=== PATIENT | male | born 1960 | race Caucasian/White ===

== ENCOUNTER 2018-04-19 09:38 | Emergency (ER) | payer BC, SELFPAY ==
[2018-04-19 09:41] VITALS: BP 144/90; PULSE 89; RESP 18; TEMP 36.4; O2SAT 99; BMI 26.8
--- NOTE | 2018-04-19 09:54 | ED.VISSUMM ---
- ER Visit Summary Date of Service: 04/19/18 Chief Complaint: Leg laceration History of Present Illness: The patient is a 57 M presents to the emergency department with laceration to his left leg. Patient was using a chainsaw today. He states that it hit the wooden and kicked back. He cut just above his left knee. He is unsure of his last tetanus. He takes no daily medications. He is otherwise healthy. He is been able to ambulate. Physical Examination: Patient has a 6 cm laceration that is horizontally oriented above the patella. It does not involve the joint capsule. His extension is preserved. There is no gross debris. There is no gross laxity of the knee. His pulses are normal. Test Results: [] Emergency Department Course and Treatment: The area was anesthetized. It was irrigated and explored. Again, the laceration does not communicate into the joint at all. The wound was closed with simple interrupted suture. Bacitracin dressing and Braeden bandage were applied. Patient be discharged home with instructions on wound care and reasons to return. Treatment Plan: [] Disposition: Discharge Impression: 6 cm left knee laceration with repair This note was generated with [employer] dictation software. It may contain incorrect words, spelling, and punctuation that were not noted in review of the chart prior to signing ED Disposition - Plan for ED Patient: Instructions: ED Laceration All Referrals: Kelsie Munoz MD [Primary Care Provider] - 10 Day for suture removal
[2018-04-19] MEDS: Diphth,Pertuss(Acell),Tet Vac 0.5 ML Vial IM (09:59)
== END 2018-04-19 10:32 | disposition home or self-care (01) ==
LOC: ED 10:23
PROVIDERS: Emergency Provider Emergency Medicine; Family Provider Family Medicine; PCP Family Medicine
DX: S81.012A Laceration without foreign body, left knee, initial encounter (principal); W29.3XXA Contact with powered garden and outdoor hand tools and machinery, initial encounter; Y93.89 Activity, other specified; Y92.89 Other specified places as the place of occurrence of the external cause; Y99.8 Other external cause status
CPT/HCPCS: 12002; 90471; 90715; 99283

== ENCOUNTER 2018-08-29 19:35 | Inpatient (IN) | payer BC, SELFPAY ==
[2018-08-29 19:36] VITALS: BP 125/104; PULSE 93; RESP 16; TEMP 36.3; O2SAT 97; BMI 26.8
--- NOTE | 2018-08-29 19:43 | EKG12_ITS ---
Test Reason : CP Blood Pressure : / mmHG Vent. Rate : 090 BPM Atrial Rate : 090 BPM P-R Int : 178 ms QRS Dur : 090 ms QT Int : 360 ms P-R-T Axes : 060 050 034 degrees QTc Int : 440 ms Normal sinus rhythm Normal ECG Confirmed by DOMONIQUE LAU, GRIFFIN ([id number]), film and video editor KENNEY CINTRON ([id number]) on 09/01/2018 1:13:46 PM Referred By: Rogelio Licona Confirmed By:GRIFFIN YOUSSEF MD
--- NOTE | 2018-08-29 20:00 | RAD_ITS ---
STUDY: X-RAY CHEST REASON FOR EXAM: Male, 58 years old. Chest pressure TECHNIQUE: Frontal view of the chest COMPARISON: None. FINDINGS: The lungs are clear. There are no pleural effusions. There is no pneumothorax. The heart is normal in size. The visualized osseous structures are within normal limits. RAD/Chest 1 View (Portable) IMPRESSION: No acute thoracic pathology. Electronically Signed: Eb Villegas, at 20:11 EDT Tel , Service support ,
[2018-08-29 20:10] LABS: Absolute Lymphocyte Count 1.33 X10^3/ul (0.83-4.51); Absolute Neutrophil Count 4.6 X10^3/uL (2.0-7.7); Basophil# 0.04 X10^3/uL; Basophil% 0.6 % (0-1); Eosinophils% 2.9 % (0-5); Hematocrit 40.9 % (40-54); Lymphocyte # 1.33 X10^3/ul (4.0); Lymphocyte % 19.6 % (19-41); Mean Corp Hgb Conc 34.2 g/gl (32-36); Mean Corpuscular Hgb 31.6 pg (27.0-32.0); Mean Corpuscular Volume 92.3 fL (80-94); Mean Platelet Vol. 10.3 fl (6.2-12.0); Monocyte# 0.59 X10^3/uL; Monocyte% 8.7 % (0-10); Neutrophil # 4.61 X10^3/uL (2.7-7.7); Neutrophil % 67.9 % (47-70); Platelet Count 221 K/mm3 (150-450); RBC Distribution Width CV 14.2 % (11.6-14.6); Red Blood Count 4.43 M/mm3 (4.6-6.2); White Blood Count 6.8 K/mm3 (4.4-11.0)
[2018-08-29 20:13] LABS: POSITIVE COUNT NO; POSITIVE DIFFERENTIAL NO; POSITIVE MORPHOLOGY NO
[2018-08-29 20:22] LABS: Anion Gap 6 (5-15); BUN 19 mg/dL (7-18); BUN/Creat Ratio 14.4 RATIO (10-20); Chloride 107 mmol/L (98-107); Creatinine, Serum 1.32 mg/dL (0.70-1.30); EST Glomerular Filtration Rate 59 mL/min (>60); Est Glom Filt Rate - Afr Amer 71 mL/min (>60); Estimated Creatinine Clearance 61.45 ml/min; Glucose 95 mg/dL (74-106); Potassium 3.6 mmol/L (3.5-5.1); Sodium Level 138 mmol/L (136-145)
--- NOTE | 2018-08-29 20:49 | ED.VISSUMM ---
- ER Visit Summary Date of Service: 08/29/18 Chief Complaint: Chest pain History of Present Illness: The patient is a 58 M who is very healthy and tonight was playing a game of pickle ball. After about an hour of play during set he began to feel chest tightness over on the left side of his chest. It did not radiate. There is no nausea. There is no shortness of breath out of the ordinary for him. There is no primary relative with early heart disease under the age of 55. He is a non-smoker. No history of diabetes hypertension or high cholesterol. He currently takes no medications. Physical Examination: Afebrile vital signs stable Gen: Well-nourished well-developed Head: Normocephalic atraumatic Eyes: Perrl EOMI ENT: TMs clear no rhinorrhea moist mucous membranes Neck: Supple no lymphadenopathy no JVD nontender CVS: Regular rate rhythm no murmurs normal S1-S2 Respiratory: No distress clear to auscultation bilaterally chest nontender Abdomen: Soft nontender nondistended normal bowel sounds no masses Back: Nontender Extremity: Nontender no edema Skin: Normal color no rash Neuro: alert orientated ?3 CN II-XII intact normal strength sensation Psych: Normal affect normal mood Test Results: Initial EKG shows a normal sinus rhythm at a rate of 90. This was compared to February 2013 I do not see a significant change. Initial troponin was negative. The delta troponin did turn positive at 0.2. Repeat EKG was unchanged Emergency Department Course and Treatment: Patient received aspirin and lovenox. He was observed in the department is not having any symptoms at rest. Spoke with Dr. Allen on-call for cardiology as well as her hospitalist. Patient will be admitted Impression: 1. Chest pain 2. Indeterminate troponin This note was generated with [employer] dictation software. It may contain incorrect words, spelling, and punctuation that were not noted in review of the chart prior to signing ED Disposition - Plan for ED Patient: Referrals: Kelsie Munoz MD [Primary Care Provider] -
[2018-08-29 21:34] VITALS: BP 142/89; PULSE 73; RESP 15; O2SAT 95
[2018-08-29 23:00] VITALS: BP 143/103; PULSE 73; RESP 18; O2SAT 95
--- NOTE | 2018-08-29 23:38 | EKG12_ITS ---
Test Reason : INCREASED TROPONIN Blood Pressure : / mmHG Vent. Rate : 077 BPM Atrial Rate : 077 BPM P-R Int : 184 ms QRS Dur : 090 ms QT Int : 380 ms P-R-T Axes : 067 054 030 degrees QTc Int : 430 ms Normal sinus rhythm with sinus arrhythmia Normal ECG Confirmed by DOMONIQUE LAU, GRIFFIN ([id number]), offline editor KENNEY CINTRON ([id number]) on 09/01/2018 1:14:39 PM Referred By: Rogelio Licona Confirmed By:GRIFFIN YOUSSEF MD
[2018-08-29] MEDS: Aspirin 81 MG TAB.CHEW 324 MG PO (23:41)
--- NOTE | 2018-08-29 23:48 | HP.PCM_ITS ---
Problem List (1) NSTEMI (non-ST elevated myocardial infarction) Status: Acute History of Present Illness Date of Admission: 08/30/18 Chief Complaint: CHEST PAIN The patient is a 58 year old M with no significant previous medical history who presented to emergency department with chest pain that started while playing pickle ball. He took some rest and went back to play pickle ball and his chest pain persisted with playing. After he stopped playing about a time he go to emergency department a chest pain had abated. He chest pain was linked to playing pickle ball and there is no other aggravating or ameliorating factors. He describes chest pain as pressure and of severe intensity. The pain was located on the left side of his chest and it was nonradiating. He denied any nausea or vomiting. He was diaphoretic that hitting it was appropriate and attributed to he playing. Admission was continued because patient was noted to have elevated troponin. Past Medical History Medical History: Medical History (Last Reviewed 08/30/18 @ 05:40 by Rogelio Licona MD) Denies previous medical history Allergies No Known Allergies Allergy (Verified 08/29/18 19:41) Home Medications: Ambulatory Orders Medication Instructions Recorded NK 08/29/18 Surgical History: herniorrhaphy - X2 Lives: With Family Smoking Status: Never smoker Tobacco Use: Cigarettes Alcohol: Occasional - *Family History Maternal History Items: - - Carotid artery disease in the mother requiring a stent while she was at age 81-82. Maternal grandfather had a heart attack. Paternal History Items: Heart Disease - His paternal grandfather had a heart attack when he was 65 to 70s. Review of Systems Constitutional: Denies: Chills, Fever, Weight Change HEENT: Denies: Head Aches, Sinus Congestion, Sinus Drainage Cardiovascular: Reports: Chest Pressure. Denies: Palpitations Respiratory: Denies: Cough, Shortness of breath at rest, Sputum production Gastrointestinal: Denies: Abdominal Pain, Nausea, Vomiting Genitourinary: Denies: Dysuria Musculoskeletal: Denies: Joint Pain, Joint Tenderness Skin: Denies: Rash, Wounds Neurological: Denies: Numbness, Tingling, Focal weakness Psychiatric: Denies: Anxiety, Depression, Homicidal Ideations, Suicidal Ideations Hematologic/ Lymphatic: Denies: Easy Bruising, Easy Bleeding VTE Information - Inpt Only VTE Present on Admission: No VTE Mechan Device Prophylaxis: None VTE Pharm Prophylaxis ordered?: Yes Patient Problems: Active and Suspected Problems (Last Updated 08/30/18 @ 01:58 by Rogelio Licona MD) NSTEMI (non-ST elevated myocardial infarction) (Acute) - Physical Exam General: Alert, Oriented x3, Cooperative HEENT: Atraumatic, PERRLA, EOMI, Normocephalic Neck: Supple, No JVD, Negative Carotid Bruits Lungs: Clear to auscultation, Normal air movement Cardiovascular: Regular rate, No murmurs Abdomen: Bowel Sounds Present, Soft, Non Tender Extremities: No edema, Capillary Refill Less than 3 Seconds Skin: No rashes, No breakdown Musculoskeletal: No Tenderness to Palpation of Joints or Extremities Neurological: Cranial nerves II-XII grossly intact Psych/Mental Status: Normal Affect, Appropriate Vital Signs Temp Pulse Resp BP Pulse Ox 97.4 F L 73 18 143/103 H 95 08/29/18 19:36 08/29/18 23:00 08/29/18 23:00 08/29/18 23:00 08/29/18 23:00 Oxygen Delivery Method Room Air Weight: 84.7 kg Body Mass Index (BMI) 26.8 Laboratory Tests Past 24 Hrs 08/29/18 08/29/18 08/29/18 19:55 19:55 22:52 WBC 6.8 RBC 4.43 L Hgb 14.0 Hct 40.9 MCV 92.3 MCH 31.6 MCHC 34.2 RDW 14.2 RDW Differential 48.0 H Plt Count 221 MPV 10.3 Immature Gran % (Auto) 0.300 Neut % (Auto) 67.9 Lymph % (Auto) 19.6 [place] % (Auto) 8.7 Eos % (Auto) 2.9 Baso % (Auto) 0.6 Absolute Neuts (auto) 4.6 Absolute Lymphs (auto) 1.33 Total Counted Not Reportable Sodium 138 Potassium 3.6 Chloride 107 Carbon Dioxide 25.0 Anion Gap 6 BUN 19 H Creatinine 1.32 H Estim Creat Clear Calc 61.45 Est GFR (MDRD) Af Amer 71 Est GFR (MDRD) Non-Af 59 L BUN/Creatinine Ratio 14.4 Glucose 95 Calcium 9.0 Troponin I < 0.015 0.202 H Assessment/Plan All Active Problems (Last Updated 08/30/18 @ 01:58 by Rogelio Licona MD) NSTEMI (non-ST elevated myocardial infarction) (Acute) The patient is a 58 year old M with no significant previous medical history who presented to emergency department with chest pain that started while playing pickle ball. Probable non-STEMI Patient with typical chest pain and with elevated troponin which is rising. Patient was given Lovenox at the emergency department. Per emergency department doctor the case was discussed with cardiology and cardiology will follow. We will continue patient on Lovenox. Patient received aspirin 324 mg in the emergency department. Continue patient on baby aspirin daily and high intensity statin. Will check lipid panel. Sublingual nitroglycerin as needed and morphine IV as needed for pain. Chest x-ray showed no acute thoracic pathology. Chest x-ray was independently reviewed. I agree with radiologist interpretation. EKG was independently reviewed. It showed sinus rhythm. Cardiology consult DVT prophylaxis Not indicated since patient has been started on therapeutic dose of Lovenox because of probable non-STEMI. Code Visit Inpatient E&M: 11441 Init Hosp L3
[2018-08-30] VITALS (15 sets, daily range): BP systolic 123–148; BP diastolic 84–93; PULSE 56–79; RESP 14–16; TEMP 36.4–36.9; O2SAT 94–98; BMI 25.7
[2018-08-30] MEDS: Enoxaparin 80 MG/0.8 ML Syringe SC ×3 (00:18→22:09)
[2018-08-30] MEDS: Atorvastatin Calcium 80 MG Tablet PO ×2 (00:51→22:09)
[2018-08-30 06:37] LABS: International Normalized Ratio 1.1; Prothrombin Time (Protime)PT. 14.4 SECONDS (11.7-14.9)
[2018-08-30 07:05] LABS: Cholesterol 212 mg/dL (200); High Density Lipoprotein 55 mg/dL; Triglycerides 94 mg/dL; Very Low Density Lipoprotein 19 mg/dL (5-40)
--- NOTE | 2018-08-30 08:35 | ECHOD_ITS ---
Reason For Study: CHEST PAIN Procedure This was a 2D Doppler, Color Flow transthoracic echocardiogram. The exam was of adequate technical quality. Exam performed portable in patient room. Left Ventricle Normal LV size. Segmental dysfunction with preserved ejection fraction (see wall motion). The estimated ejection fraction is 60 %. No evidence for diastolic dysfunction. Mid-Anterior : Mildly hypokinetic. Mid-Lateral : Mildly hypokinetic. Anterior [place] : Mildly hypokinetic. Lateral [place] : Mildly hypokinetic. Right Ventricle Normal RV size. Normal systolic function. Atria Normal left atrium. Normal right atrium. No doppler evidence for ASD. Mitral Valve There is no mitral annular calcification. Normal mitral valve. Trivial mitral valve insufficiency. Tricuspid Valve Normal tricuspid valve. Trivial tricuspid valve insufficiency. Right ventricular systolic pressure estimated to be 25 mmHg. Aortic Valve Trisinus/trileaflet aortic valve. Normal aortic valve. Pulmonic Valve The pulmonic valve is not well visualized. Great Vessels Normal sized aortic root. Pericardium/Pleural No pericardial effusion. MMode/2D Measurements & Calculations LVIDd: 4.9 cm IVSd: 1.0 cm Ao root diam: 3.4 cm LVIDs: 3.5 cm LVPWd: 1.0 cm LA dimension: 3.3 cm RVDd: 3.5 cm FS: 28.7 % LAV(MOD-bp): 39.9 ml LA A4 area: 13.4 cm2 RA A4 area: 13.0 cm2 LAV(MOD-bp) Indexed: 20.0 ml/m2 LAV(MOD-sp2): 48.2 ml LAV(MOD-sp4): 29.5 ml Time Measurements MV dec time: 0.23 sec Doppler Measurements & Calculations MV E max gar[place]: 58.0 cm/sec Lat Peak E' [place]: 9.1 cm/sec Med Peak E' [place]: 9.7 cm/sec MV A max [place]: 66.1 cm/sec E/E' lat: 6.3 E/E' med: 6.0 MV E/A: 0.88 Ao V2 max: 97.2 cm/sec LV V1 max: 84.3 cm/sec PA V2 max: 86.4 cm/sec Ao max P.8 mmHg LV V1 max P.8 mmHg TR max gar[place]: 232.1 cm/sec TR max P.6 mmHg Interpretation Summary Segmental dysfunction with preserved ejection fraction (see wall motion). The estimated ejection fraction is 60 %. Trivial mitral valve insufficiency. Trivial tricuspid valve insufficiency. Right ventricular systolic pressure estimated to be 25 mmHg. No evidence for diastolic dysfunction. Ordering Physician: Vishnu Amos Referring Physician: Rogelio Licona Performed By: Anjali Stephenson RDCS, RVT
[2018-08-30] MEDS: Aspirin E.C. 81 MG Tablet PO (09:09)
--- NOTE | 2018-08-30 11:44 | PCM.CONS.C ---
Problem List (1) NSTEMI (non-ST elevated myocardial infarction) Status: Acute (2) HLD (hyperlipidemia) Status: Acute Reason for Consult Date of Consultation: 08/30/18 History of Present Illness: The patient is a 58 year old white male with no past medical history who is referred for evaluation of chest discomfort and findings concerning for non-ST segment elevation NE. He states that he has been active. He participates in many different athletic type activities. He states yesterday he was playing pickleball at the [facility]. He developed left-sided chest discomfort/heaviness/pressure. He rested and felt better. He returned to his activity. However he subsequently had to stop based upon his feelings. He did not complain of any acute shortness of breath/dyspnea. There was no nausea or emesis. He stated it was hot and humid and he was somewhat diaphoretic but not believe he was diaphoretic out of proportion to his activity. There was no loss of consciousness. He presented to the [facility] emergency department for further evaluation. His initial troponin I level was negative. His ECG demonstrated sinus rhythm with no acute ECG changes. He remained in the emergency department for repeat troponin I level which then became indeterminate. His repeat ECG again demonstrated sinus rhythm with no acute changes. He was recommended for further inpatient evaluation and care. He states thus far he has had no recurrent symptoms. His troponin I level has trended up to 0.581. He was also noted to have a lipid profile performed with a cholesterol of 212 and an LDL of 138 and an HDL of 55. His triglycerides were normal at 94. He has denied orthopnea, PND, or peripheral pitting edema. There is been no history of near syncope or syncope. He believes he had an exercise tolerance test performed approximately 13 years ago which was reported as unremarkable. [] Past Medical History Allergies/Adverse Reactions: Allergies No Known Allergies Allergy (Verified 08/29/18 19:41) Home Medications: Ambulatory Orders Medication Instructions Recorded NK 08/29/18 Surgical History: herniorrhaphy - X2 - *Family History Maternal History Items: - - Carotid artery disease in the mother requiring a stent while she was at age 81-82. Maternal grandfather had a heart attack. Paternal History Items: Heart Disease - His paternal grandfather had a heart attack when he was 65 to 70s. Lives: With Family Smoking Status: Never smoker Tobacco Use: Cigarettes Alcohol: Occasional Drugs: None Review of Systems - Review of Systems General: Denies: Fever, Night Sweats, Fatigue Cardiovascular: Reports: Chest Discomfort, Chest Discomfort with Exertion. Denies: Shortness of Breath, Orthopnea, PND, Peripheral Edema, Palpitations, Lightheadedness, Dizziness, Near Syncope, Syncope Respiratory: Denies: Cough, Sputum Production, Hemoptysis Gastrointestinal: Denies: Hematemesis, Hematochezia, Melena Genitourinary: Denies: Dysuria, Hematuria Skin: Denies: Rash Subjectve: This is a healthy-appearing 58-year-old white male who appears to be resting comfortably no acute distress. Objective: Vital Signs Temp Pulse Resp BP Pulse Ox 98.4 F 61 16 131/89 H 96 08/30/18 05:52 08/30/18 07:06 08/30/18 05:52 08/30/18 05:52 08/30/18 07:29 Oxygen Delivery Method Room Air Weight: 179 lb Body Mass Index (BMI) 25.7 General: Healthy Appearing, Awake, Alert, Oriented x 3, Cooperative, No Acute Distress HEENT: Atraumatic, Normocephalic, PERRL, EOMI, Sclera Non Icteric Oral: Moist Mucosa Neck: Supple, Good ROM, No JVD Lungs: Clear to auscultation Cardiovascular: Regular Rhythm, Normal S1, Normal S2 Vascular: No Carotid Bruits Abdomen: Bowel Sounds Present, Soft, Non Tender Extremities: No Cyanosis, No Clubbing, No edema Neurological: No Focal Motor or Sensory Deficit Psych/Mental Status: Appropriate 08/29/18 19:55: WBC 6.8, RBC 4.43 L, Hgb 14.0, Hct 40.9, MCV 92.3, MCH 31.6, MCHC 34.2, RDW 14.2, RDW Differential 48.0 H, Plt Count 221, MPV 10.3, Immature Gran % (Auto) 0.300, Neut % (Auto) 67.9, Lymph % (Auto) 19.6, [place] % (Auto) 8.7, Eos % (Auto) 2.9, Baso % (Auto) 0.6, Absolute Neuts (auto) 4.6, Total Counted Not Reportable 08/29/18 19:55: Sodium 138, Potassium 3.6, Chloride 107, Carbon Dioxide 25.0, Anion Gap 6, BUN 19 H, Creatinine 1.32 H, Est GFR (MDRD) Af Amer 71, Est GFR (MDRD) Non-Af 59 L, BUN/Creatinine Ratio 14.4, Glucose 95, Calcium 9.0, Troponin I < 0.015 08/29/18 22:52: Troponin I 0.202 H 08/30/18 02:13: Troponin I 0.581 H 08/30/18 05:40: PT 14.4, INR 1.1 08/30/18 05:40: Triglycerides 94, Cholesterol 212 H, LDL Cholesterol 138 H, VLDL Cholesterol 19, HDL Cholesterol 55 Rhythm: Sinus rhythm EKG: As noted above ECHO: Pending CXR: Preliminary evaluation: No acute cardiopulmonary disease process appreciated Assessment/Plan 1. Non-ST segment elevation NE The patient presented with exertional chest discomfort. He has had subsequent cardiac enzymes performed which have trended up to the near positive range. His ECG is demonstrated no acute changes. At the present time he has had no other obvious explanation for his symptoms and/or objective changes. Thus there is concern of a non-ST segment elevation NE. He will continue to be monitored. He will continue medical management as deemed appropriate. An echocardiogram is pending to evaluate his left ventricular wall motion and systolic function. However, he will need to be considered for further evaluation with diagnostic cardiac catheterization. The procedure and risks have been discussed with him and he is agreeable to this approach. 2. Hyperlipidemia The patient is noted to have findings compatible with hyperlipidemia. This would be a contributing risk factor with respect to cardiovascular events. He will continue evaluation care as deemed appropriate. Comment: Patient's case has been discussed and reviewed with the patient, his spouse, and the [facility] staff. This note was generated using a voice recognition system and there may be incorrect words, spelling or punctuation that were not noted when reviewing the office note prior to saving.
--- NOTE | 2018-08-30 13:36 | PCM.PROGNOTE ---
<Funmi Lombardo - Last Filed: 08/30/18 13:43> Patient Problems: Active and Suspected Problems (Last Reviewed 08/30/18 @ 05:40 by Rogelio Licona MD) NSTEMI (non-ST elevated myocardial infarction) (Acute) HLD (hyperlipidemia) (Acute) Subjective: Patient seen and examined. Ambulating in room. Denies further chest pain. Denies shortness of breath, dizziness or other symptoms. - Physical Exam General: Alert, Oriented x3, Cooperative HEENT: Atraumatic, PERRLA, EOMI, Normocephalic Neck: Supple, No JVD, Negative Carotid Bruits Lungs: Clear to auscultation, Normal air movement Cardiovascular: Regular rate, Regular Rhythm, Normal S1, Normal S2, No murmurs Abdomen: Bowel Sounds Present, Soft, Non Tender, Non-Distended Extremities: No clubbing, No cyanosis, No edema, Capillary Refill Less than 3 Seconds Skin: No rashes, No breakdown Musculoskeletal: No Tenderness to Palpation of Joints or Extremities Neurological: Cranial nerves II-XII grossly intact, Neuro grossly intact Psych/Mental Status: Normal Affect, Appropriate Vital Signs Temp Pulse Resp BP Pulse Ox 98.2 F 64 14 123/92 H 97 08/30/18 12:00 08/30/18 12:00 08/30/18 12:00 08/30/18 12:00 08/30/18 12:00 Oxygen Delivery Method Room Air Weight: 179 lb Body Mass Index (BMI) 25.7 Intake and Output for Last 24 Hours 08/28/18 08/29/18 08/30/18 23:59 23:59 23:59 Intake Total 480 / 480 Balance 480 / 480 Laboratory Tests Past 24 Hrs 08/29/18 08/29/18 08/29/18 19:55 19:55 22:52 WBC 6.8 RBC 4.43 L Hgb 14.0 Hct 40.9 MCV 92.3 MCH 31.6 MCHC 34.2 RDW 14.2 RDW Differential 48.0 H Plt Count 221 MPV 10.3 Immature Gran % (Auto) 0.300 Neut % (Auto) 67.9 Lymph % (Auto) 19.6 [place] % (Auto) 8.7 Eos % (Auto) 2.9 Baso % (Auto) 0.6 Absolute Neuts (auto) 4.6 Absolute Lymphs (auto) 1.33 Total Counted Not Reportable PT INR Sodium 138 Potassium 3.6 Chloride 107 Carbon Dioxide 25.0 Anion Gap 6 BUN 19 H Creatinine 1.32 H Estim Creat Clear Calc 61.45 Est GFR (MDRD) Af Amer 71 Est GFR (MDRD) Non-Af 59 L BUN/Creatinine Ratio 14.4 Glucose 95 Calcium 9.0 Troponin I < 0.015 0.202 H Triglycerides Cholesterol LDL Cholesterol VLDL Cholesterol HDL Cholesterol 08/30/18 08/30/18 08/30/18 02:13 05:40 05:40 WBC RBC Hgb Hct MCV MCH MCHC RDW RDW Differential Plt Count MPV Immature Gran % (Auto) Neut % (Auto) Lymph % (Auto) [place] % (Auto) Eos % (Auto) Baso % (Auto) Absolute Neuts (auto) Absolute Lymphs (auto) Total Counted PT 14.4 INR 1.1 Sodium Potassium Chloride Carbon Dioxide Anion Gap BUN Creatinine Estim Creat Clear Calc Est GFR (MDRD) Af Amer Est GFR (MDRD) Non-Af BUN/Creatinine Ratio Glucose Calcium Troponin I 0.581 H Triglycerides 94 Cholesterol 212 H LDL Cholesterol 138 H VLDL Cholesterol 19 HDL Cholesterol 55 08/30/18 05:40 WBC RBC Hgb Hct MCV MCH MCHC RDW RDW Differential Plt Count MPV Immature Gran % (Auto) Neut % (Auto) Lymph % (Auto) [place] % (Auto) Eos % (Auto) Baso % (Auto) Absolute Neuts (auto) Absolute Lymphs (auto) Total Counted PT INR Sodium Potassium Chloride Carbon Dioxide Anion Gap BUN Creatinine Estim Creat Clear Calc Est GFR (MDRD) Af Amer Est GFR (MDRD) Non-Af BUN/Creatinine Ratio Glucose Calcium Troponin I 0.675 H* Triglycerides Cholesterol LDL Cholesterol VLDL Cholesterol HDL Cholesterol Medical Necessity - Tobacco Use Smoking Status: Never smoker Tobacco Use: Cigarettes Assessment/Plan All Active Problems (Last Reviewed 08/30/18 @ 05:40 by Rogelio Licona MD) NSTEMI (non-ST elevated myocardial infarction) (Acute) HLD (hyperlipidemia) (Acute) 1. NSTEMI-peak troponin 0.675. Cardiology consulted. Echocardiogram report pending. Plan for cardiac catheterization Saturday. Repeat EKG if further chest pain. Continue aspirin, statin, Plavix, metoprolol. 2. Hyperlipidemia-new diagnosis. Initiated on high-dose statin. 3. Suspected chronic kidney disease stage III-appears to be at baseline. Trend BMP. DVT prophylaxis-Lovenox subcu This patient was seen by ANIKET Chester under the supervision of Dr. Amos. <Vishnu Amos - Last Filed: 08/30/18 14:30> Subjective: The patient has good exercise capacity. Patient has stress test done long time ago in 2005 and was negative. The patient never had chest pain that required heart cath after that. He came in because of chest pain while playing pickle ball. The patient has chest pain, localized that lasted for 10 to 15 minutes along with shortness of breath. - Physical Exam General: Alert, Oriented x3, Cooperative HEENT: Atraumatic, PERRLA, EOMI, Normocephalic Neck: Supple, No JVD, Negative Carotid Bruits Lungs: Clear to auscultation, Normal air movement Cardiovascular: Regular rate, Normal S1, Normal S2, No murmurs Abdomen: Bowel Sounds Present, Soft, Non Tender, Non-Distended Extremities: No edema, Capillary Refill Less than 3 Seconds Skin: No rashes, No breakdown, Ulcer/ Wound Musculoskeletal: No Tenderness to Palpation of Joints or Extremities, Arthritic Changes Lymphatic: No Cervical, Supraclavicular, or Inguinal Adenopathy Neurological: Cranial nerves II-XII grossly intact, Deep Tendon Reflexes 2+/4 and Symmetrical, Neuro grossly intact, Motor Exam 5/5 strength throughout Psych/Mental Status: Normal Affect, Appropriate Vital Signs Temp Pulse Resp BP Pulse Ox 98.2 F 64 14 123/92 H 97 08/30/18 12:00 08/30/18 12:00 08/30/18 12:00 08/30/18 12:00 08/30/18 12:00 Oxygen Delivery Method Room Air Weight: 179 lb Body Mass Index (BMI) 25.7 Intake and Output for Last 24 Hours 08/28/18 08/29/18 08/30/18 23:59 23:59 23:59 Intake Total 480 / 480 Balance 480 / 480 Laboratory Tests Past 24 Hrs 08/29/18 08/29/18 08/29/18 19:55 19:55 22:52 WBC 6.8 RBC 4.43 L Hgb 14.0 Hct 40.9 MCV 92.3 MCH 31.6 MCHC 34.2 RDW 14.2 RDW Differential 48.0 H Plt Count 221 MPV 10.3 Immature Gran % (Auto) 0.300 Neut % (Auto) 67.9 Lymph % (Auto) 19.6 [place] % (Auto) 8.7 Eos % (Auto) 2.9 Baso % (Auto) 0.6 Absolute Neuts (auto) 4.6 Absolute Lymphs (auto) 1.33 Total Counted Not Reportable PT INR Sodium 138 Potassium 3.6 Chloride 107 Carbon Dioxide 25.0 Anion Gap 6 BUN 19 H Creatinine 1.32 H Estim Creat Clear Calc 61.45 Est GFR (MDRD) Af Amer 71 Est GFR (MDRD) Non-Af 59 L BUN/Creatinine Ratio 14.4 Glucose 95 Calcium 9.0 Troponin I < 0.015 0.202 H Triglycerides Cholesterol LDL Cholesterol VLDL Cholesterol HDL Cholesterol 08/30/18 08/30/18 08/30/18 02:13 05:40 05:40 WBC RBC Hgb Hct MCV MCH MCHC RDW RDW Differential Plt Count MPV Immature Gran % (Auto) Neut % (Auto) Lymph % (Auto) [place] % (Auto) Eos % (Auto) Baso % (Auto) Absolute Neuts (auto) Absolute Lymphs (auto) Total Counted PT 14.4 INR 1.1 Sodium Potassium Chloride Carbon Dioxide Anion Gap BUN Creatinine Estim Creat Clear Calc Est GFR (MDRD) Af Amer Est GFR (MDRD) Non-Af BUN/Creatinine Ratio Glucose Calcium Troponin I 0.581 H Triglycerides 94 Cholesterol 212 H LDL Cholesterol 138 H VLDL Cholesterol 19 HDL Cholesterol 55 08/30/18 05:40 WBC RBC Hgb Hct MCV MCH MCHC RDW RDW Differential Plt Count MPV Immature Gran % (Auto) Neut % (Auto) Lymph % (Auto) [place] % (Auto) Eos % (Auto) Baso % (Auto) Absolute Neuts (auto) Absolute Lymphs (auto) Total Counted PT INR Sodium Potassium Chloride Carbon Dioxide Anion Gap BUN Creatinine Estim Creat Clear Calc Est GFR (MDRD) Af Amer Est GFR (MDRD) Non-Af BUN/Creatinine Ratio Glucose Calcium Troponin I 0.675 H* Triglycerides Cholesterol LDL Cholesterol VLDL Cholesterol HDL Cholesterol Assessment/Plan This patient was seen in conjunction with Funmi SOTO. I have independently interviewed and examined the patient and reviewed pertinent history, examination findings, laboratory and plan of management. I have reviewed the note and agree with the documented findings with the few additional points. In brief, patient is admitted for chest pain while playing pickle ball. Chest pain is concerning for unstable angina therefore the patient was admitted. Serial troponin showed peak troponin 0 0.675 consistent with non-STEMI. Echo report is pending. Patient is on Lovenox 1 mg/kg body weight, aspirin, Plavix, metoprolol and high-dose statin. The patient seen by system administration advisor. Is scheduled for cardiac cath on Saturday. I have discussed my assessment with Funmi SOTO and orders have been reviewed. Code Visit Inpatient E&M: 55582 Subs Hosp L3
[2018-08-30] MEDS: Clopidogrel Bisulfate 300 MG Tablet PO (13:43)
--- NOTE | 2018-08-30 15:20 | CM.UR ---
RN YAMIL SOUND INSTALLATION WORKER CM to room to meet with patient for initial transition planning/care coordination assessment. BETY LOBO introduced self and role at [facility]. Pt voices understanding and consents to assessment at this time. Pt resting in bed in no distress at this time. Daughter, son-in-law and granddaughter in room. Pt is A/O at this time and answers all questions appropriately. Care providers, pharmacy, and demographics verified at this time. PCP: Yung Specialists: None Preferred Pharmacy: [facility] Insurance: [employer] Prescription Benefit: yes Living Will/HPOA: None. Declines info at this time. LNOK: William Living Arrangements: 2 story home with first floor bedroom with master bath. ADLs: Independent will all adls. Transportation: Self DME: None HHC/SNF: None PLAN: For Heart Cath on Saturday. María Ivy RN, CCM.
--- NOTE | 2018-08-30 15:42 | CM.UR ---
Heart Cath review according to [email or web address] [email or web address]: [facility] If any questions, contact case mgmt.
[2018-08-30] MEDS: Metoprolol Tartrate 25 MG Tablet 12.5 MG PO (22:09)
[2018-08-31] VITALS (36 sets, daily range): BP systolic 98–150; BP diastolic 65–88; PULSE 55–92; RESP 11–22; TEMP 36.6–36.9; O2SAT 92–98
--- NOTE | 2018-08-31 05:55 | EKG12_ITS ---
Test Reason : Blood Pressure : / mmHG Vent. Rate : 062 BPM Atrial Rate : 062 BPM P-R Int : 190 ms QRS Dur : 088 ms QT Int : 420 ms P-R-T Axes : 075 073 054 degrees QTc Int : 426 ms Normal sinus rhythm Normal ECG When compared with ECG of 31-AUG-2018 04:56, MANUAL COMPARISON REQUIRED, DATA IS UNCONFIRMED Confirmed by ANGEL LAU, ERNESTO ([id number]), market editor JULITO WRIGHT ([id number]) on 09/02/2018 2:13:12 PM Referred By: Rogelio Licona Confirmed By:ERNESTO ORTIZ MD
[2018-08-31 07:22] LABS: Anion Gap 4 (5-15); BUN 16 mg/dL (7-18); BUN/Creat Ratio 13.3 RATIO (10-20); Calcium,Total 8.5 mg/dL (8.5-10.1); Chloride 106 mmol/L (98-107); EST Glomerular Filtration Rate 66 mL/min (>60); Est Glom Filt Rate - Afr Amer 79 mL/min (>60); Estimated Creatinine Clearance 67.59 ml/min; Glucose 97 mg/dL (74-106); Sodium Level 137 mmol/L (136-145)
--- NOTE | 2018-08-31 09:49 | PCM.PN.CARD ---
Subjectve: The patient is awake and alert. He denies ongoing acute symptoms of chest discomfort. He has been without obvious shortness of breath, nausea, emesis, or diaphoresis. Objective: Vital Signs Temp Pulse Resp BP Pulse Ox 97.8 F 55 L 18 113/73 97 08/31/18 04:05 08/31/18 07:14 08/31/18 04:05 08/31/18 04:05 08/31/18 06:58 Oxygen Delivery Method Room Air Weight: 179 lb Body Mass Index (BMI) 25.7 Intake and Output for Last 24 Hours 08/29/18 08/30/18 08/31/18 23:59 23:59 23:59 Intake Total 1080 / 1080 120 / 120 Balance 1080 / 1080 120 / 120 General: Awake, Alert, Oriented x 3, Cooperative, No Acute Distress HEENT: Atraumatic, Normocephalic, PERRL Oral: Moist Mucosa Neck: Supple, Good ROM, No JVD Lungs: Clear to auscultation Cardiovascular: Regular Rhythm, Normal S1, Normal S2 Vascular: No Carotid Bruits Abdomen: Bowel Sounds Present, Soft, Non Tender Extremities: No Cyanosis, No Clubbing, No edema Neurological: No Focal Motor or Sensory Deficit Psych/Mental Status: Appropriate 08/30/18 05:40: Troponin I 0.675 H* 08/31/18 05:40: Sodium 137, Potassium 4.0, Chloride 106, Carbon Dioxide 27.0, Anion Gap 4 L, BUN 16, Creatinine 1.20, Est GFR (MDRD) Af Amer 79, Est GFR (MDRD) Non-Af 66, BUN/Creatinine Ratio 13.3, Glucose 97, Calcium 8.5 08/31/18 05:40: Troponin I 0.416 H Rhythm: Sinus rhythm EKG: Sinus rhythm; no acute ECG changes ECHO: Interpretation Summary Segmental dysfunction with preserved ejection fraction (see wall motion). The estimated ejection fraction is 60 %. Trivial mitral valve insufficiency. Trivial tricuspid valve insufficiency. Right ventricular systolic pressure estimated to be 25 mmHg. No evidence for diastolic dysfunction. Medical Necessity - Tobacco Use Smoking Status: Never smoker Tobacco Use: Cigarettes Assessment/Plan 1. Non-ST segment elevation DE The patient presented with exertional chest discomfort. His troponin levels trended up into the positive range and is now started to decrease. At the present time he has had no other obvious explanation for his symptoms and/or objective changes. Thus there is concern of a non-ST segment elevation DE. He will continue to be monitored. He will continue medical management as deemed appropriate. An echocardiogram is as noted above. He will be scheduled for diagnostic cardiac catheterization. The procedure and risks were discussed with him. He was agreeable to this approach. 2. Hyperlipidemia The patient is noted to have findings compatible with hyperlipidemia. This would be a contributing risk factor with respect to cardiovascular events. He will continue evaluation care as deemed appropriate. Comment: Patient's case has been discussed and reviewed with the patient, his spouse, and the [facility] staff. This note was generated using a voice recognition system and there may be incorrect words, spelling or punctuation that were not noted when reviewing the office note prior to saving.
[2018-08-31] MEDS: Metoprolol Tartrate 25 MG Tablet 12.5 MG PO ×2 (10:06→21:15)
[2018-08-31] MEDS: Aspirin E.C. 81 MG Tablet PO (10:06)
[2018-08-31] MEDS: Clopidogrel Bisulfate 75 MG Tablet PO (10:06)
[2018-08-31 10:43] LABS: Absolute Lymphocyte Count 1.05 X10^3/ul (0.83-4.51); Absolute Neutrophil Count 2.8 X10^3/uL (2.0-7.7); Basophil# 0.03 X10^3/uL; Basophil% 0.7 % (0-1); Eosinophil# 0.11 X10^3/uL; Eosinophils% 2.5 % (0-5); Hematocrit 43.7 % (40-54); Hemoglobin 14.7 g/dl (13.0-16.5); Lymphocyte # 1.05 X10^3/ul (4.0); Lymphocyte % 23.7 % (19-41); Mean Corp Hgb Conc 33.6 g/gl (32-36); Mean Corpuscular Hgb 31.5 pg (27.0-32.0); Mean Corpuscular Volume 93.6 fL (80-94); Mean Platelet Vol. 10.6 fl (6.2-12.0); Monocyte# 0.44 X10^3/uL; Monocyte% 9.9 % (0-10); Neutrophil % 63.2 % (47-70); Platelet Count 230 K/mm3 (150-450); RBC Distribution Width CV 14.5 % (11.6-14.6); RBC Distribution Width SD 48.9 fl (35.1-43.9); Red Blood Count 4.67 M/mm3 (4.6-6.2); White Blood Count 4.4 K/mm3 (4.4-11.0)
[2018-08-31 10:45] LABS: POSITIVE COUNT NO; POSITIVE DIFFERENTIAL NO; POSITIVE MORPHOLOGY NO
[2018-08-31 10:50] LABS: International Normalized Ratio 1.1; Prothrombin Time (Protime)PT. 13.9 SECONDS (11.7-14.9)
--- NOTE | 2018-08-31 12:13 | PCM.PROGNOTE ---
<Funmi Lombardo - Last Filed: 08/31/18 12:16> Patient Problems: Active and Suspected Problems (Last Reviewed 08/30/18 @ 05:40 by Rogelio Licona MD) NSTEMI (non-ST elevated myocardial infarction) (Acute) HLD (hyperlipidemia) (Acute) Subjective: Patient seen and examined. Denies further chest pain overnight. To undergo cardiac catheterization today. Denies questions or concerns. - Physical Exam General: Alert, Oriented x3, Cooperative HEENT: Atraumatic, PERRLA, EOMI, Normocephalic Neck: Supple, No JVD, Negative Carotid Bruits Lungs: Clear to auscultation, Normal air movement Cardiovascular: Regular rate, Regular Rhythm, Normal S1, Normal S2, No murmurs Abdomen: Bowel Sounds Present, Soft, Non Tender, Non-Distended Extremities: No clubbing, No cyanosis, No edema, Capillary Refill Less than 3 Seconds Skin: No rashes, No breakdown Musculoskeletal: No Tenderness to Palpation of Joints or Extremities Neurological: Cranial nerves II-XII grossly intact, Neuro grossly intact Psych/Mental Status: Normal Affect, Appropriate Vital Signs Temp Pulse Resp BP Pulse Ox 98.0 F 64 14 123/77 H 95 08/31/18 10:05 08/31/18 10:06 08/31/18 10:05 08/31/18 10:05 08/31/18 10:05 Oxygen Delivery Method Room Air Weight: 179 lb Body Mass Index (BMI) 25.7 Intake and Output for Last 24 Hours 08/29/18 08/30/18 08/31/18 23:59 23:59 23:59 Intake Total 1080 / 1080 120 / 120 Balance 1080 / 1080 120 / 120 Laboratory Tests Past 24 Hrs 08/30/18 08/31/18 08/31/18 05:40 05:40 05:40 WBC RBC Hgb Hct MCV MCH MCHC RDW RDW Differential Plt Count MPV Immature Gran % (Auto) Neut % (Auto) Lymph % (Auto) [place] % (Auto) Eos % (Auto) Baso % (Auto) Absolute Neuts (auto) Absolute Lymphs (auto) Total Counted PT INR Sodium 137 Potassium 4.0 Chloride 106 Carbon Dioxide 27.0 Anion Gap 4 L BUN 16 Creatinine 1.20 Estim Creat Clear Calc 67.59 Est GFR (MDRD) Af Amer 79 Est GFR (MDRD) Non-Af 66 BUN/Creatinine Ratio 13.3 Glucose 97 Calcium 8.5 Troponin I 0.675 H* 0.416 H 08/31/18 08/31/18 10:22 10:22 WBC 4.4 RBC 4.67 Hgb 14.7 Hct 43.7 MCV 93.6 MCH 31.5 MCHC 33.6 RDW 14.5 RDW Differential 48.9 H Plt Count 230 MPV 10.6 Immature Gran % (Auto) 0.000 Neut % (Auto) 63.2 Lymph % (Auto) 23.7 [place] % (Auto) 9.9 Eos % (Auto) 2.5 Baso % (Auto) 0.7 Absolute Neuts (auto) 2.8 Absolute Lymphs (auto) 1.05 Total Counted Not Reportable PT 13.9 INR 1.1 Sodium Potassium Chloride Carbon Dioxide Anion Gap BUN Creatinine Estim Creat Clear Calc Est GFR (MDRD) Af Amer Est GFR (MDRD) Non-Af BUN/Creatinine Ratio Glucose Calcium Troponin I Medical Necessity - Tobacco Use Smoking Status: Never smoker Tobacco Use: Cigarettes Assessment/Plan All Active Problems (Last Reviewed 08/30/18 @ 05:40 by Rogelio Licona MD) NSTEMI (non-ST elevated myocardial infarction) (Acute) HLD (hyperlipidemia) (Acute) 1. NSTEMI-peak troponin 0.675. Cardiology consulted. Echocardiogram showed an EF of 60%. To undergo cardiac catheterization today. Continue aspirin, statin, Plavix, metoprolol. 2. Hyperlipidemia-new diagnosis. Initiated on high-dose statin. 3. Suspected chronic kidney disease stage III-appears to be at baseline. Trend BMP. DVT prophylaxis-Lovenox subcu This patient was seen by ANIKET Chester under the supervision of Dr. Amos. <Vishnu Amos - Last Filed: 08/31/18 16:43> Subjective: The patient was seen and examined. Does not have chest pain or shortness of breath. Is scheduled for cardiac catheter today. - Physical Exam General: Alert, Oriented x3, Cooperative HEENT: Atraumatic, PERRLA, EOMI, Normocephalic Neck: Supple, No JVD, Negative Carotid Bruits Lungs: Clear to auscultation, Normal air movement, No rhonchi, No wheeze, No rales Cardiovascular: Regular rate, Regular Rhythm, Normal S1, Normal S2, No murmurs Abdomen: Bowel Sounds Present, Soft, Non Tender, Non-Distended Extremities: No edema, Capillary Refill Less than 3 Seconds Skin: No rashes, No breakdown Musculoskeletal: No Tenderness to Palpation of Joints or Extremities Lymphatic: Cervical Adenopathy Neurological: Cranial nerves II-XII grossly intact, Deep Tendon Reflexes 2+/4 and Symmetrical, Neuro grossly intact, Motor Exam 5/5 strength throughout Psych/Mental Status: Normal Affect, Appropriate Vital Signs Temp Pulse Resp BP Pulse Ox 98.2 F 67 15 150/87 H 98 08/31/18 14:15 08/31/18 15:30 08/31/18 15:15 08/31/18 15:15 08/31/18 15:15 Oxygen Delivery Method Room Air Weight: 179 lb Body Mass Index (BMI) 25.7 Intake and Output for Last 24 Hours 08/29/18 08/30/18 08/31/18 23:59 23:59 23:59 Intake Total 1080 / 1080 180 / 180 Balance 1080 / 1080 180 / 180 Laboratory Tests Past 24 Hrs 08/31/18 08/31/18 08/31/18 05:40 05:40 10:22 WBC 4.4 RBC 4.67 Hgb 14.7 Hct 43.7 MCV 93.6 MCH 31.5 MCHC 33.6 RDW 14.5 RDW Differential 48.9 H Plt Count 230 MPV 10.6 Immature Gran % (Auto) 0.000 Neut % (Auto) 63.2 Lymph % (Auto) 23.7 [place] % (Auto) 9.9 Eos % (Auto) 2.5 Baso % (Auto) 0.7 Absolute Neuts (auto) 2.8 Absolute Lymphs (auto) 1.05 Total Counted Not Reportable PT INR Activated Clotting Time Sodium 137 Potassium 4.0 Chloride 106 Carbon Dioxide 27.0 Anion Gap 4 L BUN 16 Creatinine 1.20 Estim Creat Clear Calc 67.59 Est GFR (MDRD) Af Amer 79 Est GFR (MDRD) Non-Af 66 BUN/Creatinine Ratio 13.3 Glucose 97 Calcium 8.5 Troponin I 0.416 H 08/31/18 08/31/18 10:22 13:43 WBC RBC Hgb Hct MCV MCH MCHC RDW RDW Differential Plt Count MPV Immature Gran % (Auto) Neut % (Auto) Lymph % (Auto) [place] % (Auto) Eos % (Auto) Baso % (Auto) Absolute Neuts (auto) Absolute Lymphs (auto) Total Counted PT 13.9 INR 1.1 Activated Clotting Time 180 H Sodium Potassium Chloride Carbon Dioxide Anion Gap BUN Creatinine Estim Creat Clear Calc Est GFR (MDRD) Af Amer Est GFR (MDRD) Non-Af BUN/Creatinine Ratio Glucose Calcium Troponin I Assessment/Plan This patient was seen in conjunction with Funmi SOTO. I have independently interviewed and examined the patient and reviewed pertinent history, examination findings, laboratory and plan of management. I have reviewed the note and agree with the documented findings with the few additional points. In brief, patient is admitted for chest pain while playing [employer] ball with symptomatology concerning for unstable angina. Serial troponin showed peak troponin 0 0.675 consistent with non-STEMI. Echo report is pending. The patient had cardiac catheter today and reported [place] multivessel coronary artery disease. Patient had PTCA and ONEIL to proximal/mid LAD with eccentric stenosis 75% to 0%. Successful PCI to balloon only to ostium of diagonal 1 from 85% to 30%. Normal LV size, wall motion and systolic function with EF 60% by LV gram. Cardiac cath on 08/30 reported as EF 60% with systolic segmental dysfunction hypokinetic mid lateral and lateral apex. Continue patient cardiac medications. Patient transferred to ICU. I have discussed my assessment with Funmi SOTO and orders have been reviewed. Active Medications Acetaminophen (Tylenol) 650 mg PO Q6H PRN PRN PRN Reason: Mild Pain (0-2/10) Aspirin (Ecotrin) 81 mg PO DAILY@0800 [facility] Last Admin: 08/31/18 10:06 Dose: 81 mg Documented by: Atorvastatin Calcium (Lipitor) 80 mg PO QHS [facility] Last Admin: 08/30/18 22:09 Dose: 80 mg Documented by: Atropine Sulfate () 0.5 mg IV UD PRN PRN Reason: HR <50 bpm Clopidogrel Bisulfate (Plavix) 75 mg PO DAILY [facility] Last Admin: 08/31/18 10:06 Dose: 75 mg Documented by: Dextrose (D50w Syringe) 0 gm IV X1 PRN; Protocol PRN Reason: Hypoglycemia Diazepam (Valium) 5 mg PO Q6H PRN PRN PRN Reason: BACK SPASMS/ANXIETY Glucagon () 1 mg IM .X1 PRN PRN Reason: Hypoglycemia Heparin Sodium (Beef Lung) (Heparin 500 Unit/5 Ml (100/Ml)) 500 unit IV UD PRN PRN Reason: HEPARIN FLUSH Sodium Chloride () 250 mls @ 15 mls/hr IV .[id number] PRN PRN Reason: SALINE FLUSH Sodium Chloride () 1,000 mls @ 15 mls/hr IV .Q48H RUBI Sodium Chloride () 1,000 mls @ 150 mls/hr IV .[id number] [facility] Stop: 08/31/18 20:53 Last Admin: 08/31/18 14:15 Dose: 150 mls/hr Documented by: Sodium Chloride () 250 mls @ 15 mls/hr IV .[id number] PRN PRN Reason: SALINE FLUSH Sodium Chloride () 500 mls @ 15 mls/hr IV .[id number] PRN PRN Reason: SALINE FLUSH Labetalol HCl (Trandate) 5 mg IV X1 PRN PRN Reason: SBP > 160 when pulling sheath Metoclopramide HCl (Reglan) 5 mg IV Q6H PRN PRN PRN Reason: NAUSEA/VOMITING Metoprolol Tartrate (Lopressor (Beta Zac)) 12.5 mg PO BID [facility] Last Admin: 08/31/18 10:06 Dose: 12.5 mg Documented by: Morphine Sulfate () 2 mg IV Q4H PRN PRN PRN Reason: PAIN Nitroglycerin (Nitrostat) 0.4 mg SUBLINGUAL Q5M PRN PRN Reason: CARDIAC/CHEST PAIN Ondansetron HCl (Zofran) 4 mg IV Q8H PRN PRN PRN Reason: NAUSEA/VOMITING Sodium Chloride () 10 - 40 ml IV UD PRN PRN Reason: SALINE FLUSH Sodium Chloride () 500 ml IV BOLUS PRN PRN Reason: VASO-VAGAL PROTOCOL Code Visit Inpatient E&M: [address] [place] [id number]
--- NOTE | 2018-08-31 13:57 | CL.I_ITS ---
Patient Name: Adelia GO Study Date: 08/31/2018 Performing: Ortega Sandoval MD Ht: 70.07 inches 178 cm : 1960 Wt: 178.57 lbs 81 kg Age: 58 Gender: male BSA: 1.99 PROCEDURE(S) PERFORMED [id number] W OR WO PTCA, SINGLE CORONARY ARTERY [id number], EACH ADD'L CORONARY ART, SAME MAJOR CLINICAL PROFILE AND CO-MORBIDITIES Patient presents with NSTEMI for urgent cardiac cath Indications: New Onset Angina <= 2 months, Suspected CAD, ACS <= 24 hrs, Suspected CAD Heart Failure: None Stress/Imaging Stress/Image Study Performed: No Stress/Image Study Performed: No Angina Classification Anginal Classification w/in 2 Weeks: CCS II CAD Presentations: Non-STEMI. Unstable angina. Non-STEMI. Symptom onset Date/Time: 08/30/2018 Time Not Available Comorbidities/Risk Factors: Hypertension Dyslipidemia Family History of Premature CAD CONCLUSIONS Successful PTCA/ONEIL to proximal/mid LAD with a 3.0 x 32 Promus Synergy, followed immediately upstream with a 3.0 x 16 Promus Synergy, post dilated from DIAG#1 backwards with a 3.5 x 12 NC Balloon; 75%-- >0%, no dissection. Successful PCI with PTCA to the balloon only to ostium of DIAG#1 with a 2.0 x 12 balloon; 85%-->30%, no dissection. No additional stenting done due to lack of symptoms, lack of dissection, acute angle of diagonal branch and <50% residual stenosis. RECOMMENDATIONS Highly recommend quitting all tobacco products Follow up with primary radio frequency engineer Risk factor modification ASA Indefinitley Plavix for at least 12 months Routine post interventional care Refer for Outpatient Cardiac Rehab Manual sheath removal per protocol Follow up with Dr. Allen Manual sheath removal once ACT<160. Pt is too thin for Mynx closure. DESCRIPTION OF PROCEDURE The patient arrived to the procedure lab. The risks and benefits of the procedure as well as a full d escription of our services here and current unavailability of surgical backup were fully explained to the patient and/or their significant other prior to the catheterization. The Timeout was completed, verifying the correct patient and procedure. The patient's procedural site was prepped and draped in the usual fashion. Local anesthetic was given subcutaneously to right groin region with Lidocaine 2% Using a modified Seldinger technique,arterial access was obtained via the right femoral artery, a 4Fr sheath was inserted Left Coronary Artery selective angiography was performed in multiple views using a 4 Fr. JL5 catheter. Right Coronary Artery selective angiography was then performed in multiple vie ws using a 4 Fr. 3DRC catheter. Left Ventriculography was performed in C[place]RDENA[place] projection using a 4 Fr. P igtail catheter. LV to AO pullback pressures were then recorded.The images were reviewed and options discussed. A decision was then made to proceed with an Intervention, IVUS or other adjunc t procedure. Arterial sheath was exchanged for a 6 Fr Sheath. WBU 3.5 Guide catheter was inserted and engaged into the LCA. BMW Guide wire was advanced to the LAD. Angiogram performed pre balloon dilatation. BMW to Diag Guide wire was inserted as a francisca wire Emerge 2.00x12 Balloon catheter was inserted. PTCA b alloon inflated at 8 atms for 8 secs. PTCA balloon inflated at 6 atms for 6 secs. PTCA balloon inflat ed at 8 atms for 7 secs. PTCA balloon inflated at 10 atms for 7 secs. Angiogram performed post balloo n dilatation. Synergy 3.00x32 Drug Eluting stent was inserted. Angiogram performed post stent deploym ent. Synergy 3.00x16 Drug Eluting stent was inserted. Angiogram performed post stent deployment. NC E merge 3.50x12 Balloon catheter was inserted. PTCA balloon inflated at 12 atms for 6 secs. PTCA balloo n inflated at 12 atms for 7 secs. PTCA balloon inflated at 12 atms for 11 secs. Emerge 2.00x12 Balloo n catheter was inserted. PTCA balloon inflated at 6 atms for 56 secs. PTCA balloon inflated at 12 atms for 31 secs. Angiogram performed post balloon dilatation. The arterial sheath w as sutured in place and capped INTERVENTION INFORMATION LESION SITE: LAD (Proximal) Lesion Complexity: High/C, lesion at bifurcation: Yes, thrombus present: No, lesion length: 48 mm, cu lprit lesion: Yes Pre Stenosis: 75 % Pre intervention SOFÍA flow: 3 PROCEDURE: Drug Eluting Stent with pre and post dilatation Post Stenosis: 0 % Post intervention SOFÍA flow: 3 Lesion Devices: [place] [employer] EMERGE MR 2.00x12 BALLOON Osorio .014 BMW [place] Straight 190cm Medtronic 6 Fr EBU3.5 100cm Guide Catheter [place] [employer] Synergy MR ONEIL 3.00x32 [place] [employer] Synergy MR ONEIL 3.00x16 [place] [employer] NC EMERGE MR 3.50x12 BALLOON LESION SITE: 1st Diagonal (Ostial) Lesion Complexity: Non-High/Non-C, lesion at bifurcation: Yes, thrombus present: No, lesion length: 1 0 mm, culprit lesion: No Pre Stenosis: 85 % Pre intervention SOFÍA flow: 3 PROCEDURE: Balloon Angioplasty Post Stenosis: 30 % Post intervention SOFÍA flow: 3 Lesion Devices: [place] [employer] EMERGE MR 2.00x12 BALLOON Osorio .014 BMW [place] Straight 190cm Medtronic 6 Fr EBU3.5 100cm Guide Catheter COMPLICATIONS No Complications PROCEDURE MEDICATIONS Versed 1 mg IV Oxygen: 2 L/min via nasal cannula Heparin 6000 unit(s) IV 08/31/2018 13:07:39 Nitro 200 mcg IC 08/31/2018 13:08:34 Nitro 200 mcg IC 08/31/2018 13:08:34 Nitro 200 mcg IC 08/31/2018 13:17:15 Nitro 200 mcg IC 08/31/2018 13:28:45 IV Bolus: .9 NaCl 700ml total 08/31/2018 13:08:19 SUMMARY OF HEMODYNAMIC DATA Time AIR REST ECG 12:41:35 AO 100/68 (84) SA 12:52:54 LV 113/-7, 16 12:59:08 LV 109/-12, 7 12:59:15 LV 115/-13, 7 13:00:07 LVp 121/-15, 7 13:00:14 AOp 110/60 (82) 13:00:19 13:53:07 Signed By Ortega Sandoval MD On 08/31/2018 1:56:16 PM Ortega Sandoval MD
--- NOTE | 2018-08-31 14:14 | EKG12_ITS ---
Test Reason : AM Blood Pressure : / mmHG Vent. Rate : 058 BPM Atrial Rate : 058 BPM P-R Int : 188 ms QRS Dur : 092 ms QT Int : 412 ms P-R-T Axes : 069 074 050 degrees QTc Int : 404 ms Sinus bradycardia Otherwise normal ECG Confirmed by DOMONIQUE LAU, GRIFFIN ([id number]), editor sound KIMO FALLON ([id number]) on 09/04/2018 1:09:03 PM Referred By: Rogelio Licona Confirmed By:GRIFFIN YOUSSEF MD
[2018-08-31] MEDS: 0.9% Normal Saline 1,000 ML 150 ML IV (14:15)
--- NOTE | 2018-08-31 14:25 | CL.D_ITS ---
Patient Name: Adelia GO HANSA Study Date: 08/31/2018 Performing: Derek Allen MD Ht: 70.08 inches 178 cm : 1960 Wt: 178.57 lbs 81 kg Age: 58 Gender: male BSA: 1.99 PROCEDURE(S) PERFORMED DZ70-FCC/COR/LV LM80-BCE W OR WO PTCA, SINGLE CORONARY ARTERY [id number], EACH ADD'L CORONARY ART, SAME MAJOR CLINICAL PROFILE AND INDICATIONS Patient presents with NSTEMI for urgent cardiac cath Indications: New Onset Angina <= 2 months, Suspected CAD, ACS <= 24 hrs, Suspected CAD Heart Failure: None Stress/Imaging Stress/Image Study Performed: No Stress/Image Study Performed: No Angina Classification Anginal Classification w/in 2 Weeks: CCS II CAD Presentations: Non-STEMI. Unstable angina. Non-STEMI. Symptom onset Date/Time: 08/30/2018 Time Not Available Comorbidities/Risk Factors: Hypertension Dyslipidemia Family History of Premature CAD CONCLUSIONS Normal Left Ventricular End Diastolic Pressure Normal LV size, wall motion,and systolic function LVEF: by LV gram 60 % [place] Multivessel CAD RECOMMENDATIONS Risk factor modification Medical therapy Referred for immediate PCI DESCRIPTION OF PROCEDURE The patient arrived to the procedure lab. The risks and benefits of the procedure as well as a full d escription of our services here and current unavailability of surgical backup were fully explained to the patient and/or their significant other prior to the catheterization. The Timeout was completed, verifying the correct patient and procedure. The patient's procedural site was prepped and draped in the usual fashion. Local anesthetic was given subcutaneously to right groin region with Lidocaine 2%. Using a modified Seldinger technique, arterial access was obtained via the right femoral artery, a 4 Fr sheath was inserted Left Coronary Artery selective angiography was performed in multiple views us ing a 4 Fr. JL5 catheter. Right Coronary Artery selective angiography was then performed in multiple views using a 4 Fr. 3DRC catheter. Left Ventriculography was performed in CÁRDENAS projection using a 4 Fr . Pigtail catheter. LV to AO pullback pressures were then recorded.The arterial sheath was sutured in place and capped CORONARY ANGIOGRAPHY DOMINANCE: Right Dominant LEFT HEART ASSESSMENT Left Ventricular Ejection Fraction: by LV Gram 60 % Normal LV wall motion Normal Left Ventricular End Diastolic Pressure LVEDP: 7 mmHg LEFT MAIN: Mild luminal irregularities LEFT ANTERIOR DESCENDING ARTERY: PROX LAD: Eccentric: Hazy: 75 % Stenosis CIRCUMFLEX ARTERY: PROX CIRC: Diffuse: 10 - 25 % Stenosis RIGHT CORONARY ARTERY: Angiographically normal VALVE FINDINGS: Normal Aortic Valve function Normal Mitral Valve function AORTIC ROOT: Angiographically normal COMPLICATIONS No Complications PROCEDURE MEDICATIONS Versed 1 mg IV Oxygen: 2 L/min via nasal cannula Heparin 6000 unit(s) IV 08/31/2018 13:07:39 Nitro 200 mcg IC 08/31/2018 13:08:34 Nitro 200 mcg IC 08/31/2018 13:08:34 Nitro 200 mcg IC 08/31/2018 13:17:15 Nitro 200 mcg IC 08/31/2018 13:28:45 IV Bolus: .9 NaCl 700ml total 08/31/2018 13:08:19 SUMMARY OF HEMODYNAMIC DATA Time AIR REST ECG 12:41:35 AO 100/68 (84) SA 12:52:54 LV 113/-7, 16 12:59:08 LV 109/-12, 7 12:59:15 LV 115/-13, 7 13:00:07 LVp 121/-15, 7 13:00:14 AOp 110/60 (82) 13:00:19 RM AIR REST 13:53:07 Signed By Derek Allen MD On 08/31/2018 14:25:29 Derek Allen MD
[2018-08-31 15:35] LABS: ACT Activated Clotting Time 180 sec (74-137)
[2018-08-31] MEDS: Atorvastatin Calcium 80 MG Tablet PO (21:15)
[2018-09-01] VITALS (14 sets, daily range): BP systolic 99–134; BP diastolic 62–80; PULSE 59–71; RESP 12–18; TEMP 36.6–36.9; O2SAT 95–99; BMI 25.7
[2018-09-01 04:13] LABS: Hematocrit 39.7 % (40-54); Hemoglobin 13.5 g/dl (13.0-16.5); Mean Corpuscular Hgb 31.9 pg (27.0-32.0); Mean Corpuscular Volume 93.9 fL (80-94); Mean Platelet Vol. 10.5 fl (6.2-12.0); Platelet Count 206 K/mm3 (150-450); RBC Distribution Width CV 14.6 % (11.6-14.6); RBC Distribution Width SD 49.9 fl (35.1-43.9); Red Blood Count 4.23 M/mm3 (4.6-6.2); Scan Indicated on CBC? Y/N NO; White Blood Count 6.9 K/mm3 (4.4-11.0)
[2018-09-01 04:28] LABS: Anion Gap 7 (5-15); BUN 16 mg/dL (7-18); BUN/Creat Ratio 14.3 RATIO (10-20); Calcium,Total 8.3 mg/dL (8.5-10.1); Chloride 109 mmol/L (98-107); Cholesterol 195 mg/dL (200); Creatinine, Serum 1.12 mg/dL (0.70-1.30); EST Glomerular Filtration Rate 71 mL/min (>60); Est Glom Filt Rate - Afr Amer 86 mL/min (>60); Estimated Creatinine Clearance 72.42 ml/min; Glucose 90 mg/dL (74-106); High Density Lipoprotein 45 mg/dL; Potassium 4.2 mmol/L (3.5-5.1); Sodium Level 142 mmol/L (136-145); Triglycerides 72 mg/dL; Very Low Density Lipoprotein 14 mg/dL (5-40)
[2018-09-01] MEDS: Metoprolol Tartrate 25 MG Tablet 12.5 MG PO (08:04)
[2018-09-01] MEDS: Clopidogrel Bisulfate 75 MG Tablet PO (08:04)
[2018-09-01] MEDS: Aspirin E.C. 81 MG Tablet PO (08:04)
--- NOTE | 2018-09-01 08:40 | CRPHASE1 ---
Patient Communication PHII Cardiac Rehab Discussed with Patient:: Yes Guide to Cardiac Rehab Given to Patient:: Yes Cardiac Rehab Facility Choice List Given to Patient:: Yes - chooses [facility] Choice Program [facility] CR PHII:: Communication Given to CR, Refer to [facility] Core Driller Helper:: Ortega Sandoval Phase II Cardiac Rehab:: Yes Sessions:: 36 sessions - 3 days/wk, 12 weeks Risk Factors/Lifestyle Smoking Status: Never smoker Hx Dyslipidemia: Yes Height: 1.78 m Weight:: 81.193 kg BMI: 25.7 Laboratory Values: Cardiac Rehab Phase I Labs Triglycerides 72 mg/dL (-199) 09/01/18 04:05 Cholesterol 195 mg/dL (200) 09/01/18 04:05 136 mg/dL (0-130) H 09/01/18 04:05 45 mg/dL (40-) 09/01/18 04:05 Phase I Education Given On:: [place], Nutrition, Antiplatelet medication, CHF, Smoking cessation, Diabetes - Type I, Diabetes - Type II Issues Affecting Care:: None Knowledge of Condition:: Yes Hospital Course Presenting Symptoms:: Chest pressure Cardiac Cath Date:: 08/31/18 Medical/Surgical History Dyslipidemia:: Yes Discharge/Home/Social Eval Discharge Disposition: Home Marital Status: Cardiac Rehabilitation Info Cardiac Rehabilitation Program Information: Cardiac Rehabilitation is important for patients like you who are recovering from a heart problem. Cardiac rehabilitation programs are recognized as integral to the continued care of the patient with coronary heart disease. The cardiac rehabilitation program is designed to optimize a patient's physical, psychological, and social functioning. Health interior plant caretaker work in cardiac rehabilitation programs and assist you with getting the treatments you need to get stronger and healthier - like exercise, healthy eating habits, and medications. Cardiac rehabilitation has been show to help people with heart problems live longer and have better life enjoyment than people who do not go to cardiac rehabilitation. Please contact the Cardiac Rehabilitation Program at [facility] at in two weeks if you have not heard from them.
--- NOTE | 2018-09-01 08:44 | CRPH1.INSTRU ---
General Education CAD and cardiac anatomy and function:: Patient communicates acknowledgment Explanation of diagnoses and procedures:: Patient communicates acknowledgment Sign/Symptoms of IL:: Patient communicates acknowledgment Antiplatelet therapy: Patient communicates acknowledgment Proper use of NTG-SL: Not instructed Emergency procedures and activation of EMS: Patient communicates acknowledgment Compliance of all prescribed medications: Patient communicates acknowledgment Smoking Patient Nicotine/Smoking Risk Factors Are:: Never smoked Nicotine/Smoking Response Code:: Patient communicates acknowledgment Dyslipidemia Dyslipidemia Response Code:: Patient communicates acknowledgment Overweight/Obesity Patient Overweight/Obesity Risk Factors Are:: BMI Normal [24-29 & > 65 years old] Overweight/Obesity:: Patient communicates acknowledgment Hypertension Patient Hypertension Risk Factors Are:: No documented hx of HTN Hypertension:: Patient communicates acknowledgment Heart Disease Patient Heart Disease Risk Factors Are:: Family history of heart disease < 65 years old Heart Disease Response Code:: Patient communicates acknowledgment Diabetes Diabetes:: Patient communicates acknowledgment Metabolic Syndrome Metabolic Syndrome Response Code:: Patient communicates acknowledgment Sedentary Sedentary Response Code:: Patient communicates acknowledgment Stress Stress Response Code:: Patient communicates acknowledgment
--- NOTE | 2018-09-01 10:10 | PCM.PN.CARD ---
Subjectve: The patient is awake and alert. He denies any ongoing chest discomfort or difficulty breathing. He has had no symptoms of palpitations, near-syncope, or syncope. He has been up and ambulating. Objective: Vital Signs Temp Pulse Resp BP Pulse Ox 98 F 60 14 121/80 H 96 09/01/18 08:00 09/01/18 09:00 09/01/18 09:00 09/01/18 09:00 09/01/18 09:00 Oxygen Delivery Method Room Air Weight: 179 lb Body Mass Index (BMI) 25.7 Intake and Output for Last 24 Hours 08/30/18 08/31/18 09/01/18 23:59 23:59 23:59 Intake Total 1080 / 1080 1395 / 1395 120 / 120 Balance 1080 / 1080 1395 / 1395 120 / 120 General: Awake, Alert, Oriented x 3, Cooperative, No Acute Distress HEENT: Atraumatic, Normocephalic, PERRL, EOMI, Sclera Non Icteric Oral: Moist Mucosa Neck: Supple, Good ROM, No JVD Lungs: Clear to auscultation Cardiovascular: Regular Rhythm, Normal S1, Normal S2 Vascular: No Carotid Bruits, Normal Femoral Pulses Abdomen: Bowel Sounds Present, Soft, Non Tender Extremities: No Cyanosis, No Clubbing, No edema Neurological: No Focal Motor or Sensory Deficit Psych/Mental Status: Appropriate 08/31/18 10:22: WBC 4.4, RBC 4.67, Hgb 14.7, Hct 43.7, MCV 93.6, MCH 31.5, MCHC 33.6, RDW 14.5, RDW Differential 48.9 H, Plt Count 230, MPV 10.6, Immature Gran % (Auto) 0.000, Neut % (Auto) 63.2, Lymph % (Auto) 23.7, [place] % (Auto) 9.9, Eos % (Auto) 2.5, Baso % (Auto) 0.7, Absolute Neuts (auto) 2.8, Total Counted Not Reportable 08/31/18 10:22: PT 13.9, INR 1.1 09/01/18 04:05: Sodium 142, Potassium 4.2, Chloride 109 H, Carbon Dioxide 26.0, Anion Gap 7, BUN 16, Creatinine 1.12, Est GFR (MDRD) Af Amer 86, Est GFR (MDRD) Non-Af 71, BUN/Creatinine Ratio 14.3, Glucose 90, Calcium 8.3 L, Triglycerides 72, Cholesterol 195, LDL Cholesterol 136 H, VLDL Cholesterol 14, HDL Cholesterol 45 09/01/18 04:05: WBC 6.9, RBC 4.23 L, Hgb 13.5, Hct 39.7 L, MCV 93.9, MCH 31.9, MCHC 34.0, RDW 14.6, RDW Differential 49.9 H, Plt Count 206, MPV 10.5 Rhythm: Sinus rhythm EKG: Sinus rhythm; no acute ECG changes Medical Necessity - Tobacco Use Smoking Status: Never smoker Tobacco Use: Cigarettes Assessment/Plan 1. Non-ST segment elevation LA The patient is now status post diagnostic cardiac catheterization. He was found to have LAD disease. He underwent PCI under the direction of Dr. Sandoval. He appears to be resting comfortably without acute symptoms. He appears to be hemodynamically stable. 2. Hyperlipidemia The patient is noted to have findings compatible with hyperlipidemia. This would be a contributing risk factor with respect to cardiovascular events. He will continue evaluation care as deemed appropriate. Overall, the present time, the patient appears to be symptomatically and hemodynamically stable. The patient will continue with outpatient cardiac vascular follow-up and outpatient cardiac rehabilitation. Comment: Patient's case has been discussed and reviewed with the patient. This note was generated using a voice recognition system and there may be incorrect words, spelling or punctuation that were not noted when reviewing the office note prior to saving.
--- NOTE | 2018-09-01 11:04 | CASEMGMT ---
RN CM Assessment Presentation: NSTEMI Intro role of CM and purpose of RN CM assessment to patient in room. Pt is awake, alert and able to participate in assessment. Demographics, PCP and Pharmacy verified. Pt is independent, no care needs identified. PCP: Dr. Kelsie Barragan Specialists: Dr. Allen, cardiology [facility] Insurance: Rosita Prescription Benefit: yes, prefers generic. Plavix ordered LNOK: Ani Thomas Living Arrangements: Lives independently. No care needs identified. Transportation: drives, or drives DME: none HHC: none Patient DC goals: Home DC PLAN: Home. Pati ALBERT BSN CM
--- NOTE | 2018-09-01 11:07 | DCINST_ITS ---
- Discharge Diagnoses Current Active Problems: Current Active and Chronic Problems (Last Updated 09/01/18 @ 08:34 by Gia Zamorano) S/P coronary artery stent placement (Chronic ~08/31/18) PTCA/ONEIL to prox/mid LAD and PCI w/PTCA balloon only to ostium of diag #1 08/31/18 Atherosclerotic heart disease of [place] coronary artery without angina pectoris (Chronic) NSTEMI (non-ST elevated myocardial infarction) (Acute) HLD (hyperlipidemia) (Acute) You will use the following diet at home:: Cardiac Your food should be the consistency of: Regular Your liquids should be the consistency of: Regular/Thin Discharge Activity: Return to Normal Activity Weight Bearing Status: Weight bearing as tolerated Call your doctor if you observe: Shortness of breath, Chest pain Instructions: Medications for Heart Disease, Getting Started With Cardiac Rehab: Exercise, Exercising After a Heart Attack, Heart Attack Allergies/Adverse Reactions: Allergies No Known Allergies Allergy (Verified 08/29/18 19:41) Medications to take at Discharge Aspirin E.C. [Ecotrin] 81 mg PO DAILY@0800 #30 tablet 09/01/18 Atorvastatin Calcium [Lipitor] 80 mg PO QHS #30 tablet 09/01/18 Clopidogrel Bisulfate [Plavix] 75 mg PO DAILY #30 tablet 09/01/18 Metoprolol Tartrate [Lopressor (beta jose)] 12.5 mg PO BID #30 tablet 09/01/18 The following prescriptions were given: Aspirin E.C. [Ecotrin] 81 mg PO DAILY@0800 #30 tablet Atorvastatin Calcium [Lipitor] 80 mg PO QHS #30 tablet Metoprolol Tartrate [Lopressor (beta jose)] 12.5 mg PO BID #30 tablet Clopidogrel Bisulfate [Plavix] 75 mg PO DAILY #30 tablet Orders to be completed after discharge: Phase II, Outpatient Cardiac Rehab Location: None Selected Primary Care Physician: Kelsie Munoz MD [Primary Care Provider] - Please follow up with your Primary Care Physician in: one week Test Results: Test results from this visit will be discussed in further detail at your follow- up appointment, if applicable. Please Follow Up With: Derek Allen MD When: one week Proposed Discharge Date: 09/01/18 Cardiac Rehab Referral Please Follow Up with Cardiac Rehabilitation:: 2 Weeks Cardiac Rehabilitation was informed of this Referral:: Yes - Notifies Card Rehab
--- NOTE | 2018-09-01 11:09 | DS.PCM_ITS ---
Discharge Date and Diagnosis Date of Admission: 08/30/18 Date of Discharge: 09/01/18 - Primary Discharge Diagnosis Active and Suspected Problems (Last Updated 09/01/18 @ 08:34 by Gia Zamorano) NSTEMI (non-ST elevated myocardial infarction) (Acute) HLD (hyperlipidemia) (Acute) - Secondary Discharge Diagnosis Chronic Problems (Last Updated 09/01/18 @ 08:34 by Gia Zamorano) S/P coronary artery stent placement (Chronic ~08/31/18) PTCA/ONEIL to prox/mid LAD and PCI w/PTCA balloon only to ostium of diag #1 08/31/18 Atherosclerotic heart disease of [place] coronary artery without angina pectoris (Chronic) Hospital Course and Treatment Imaging Results: Diagnostic Data Chest X-Ray 08/29/18 20:00 IMPRESSION: No acute thoracic pathology. Electronically Signed: Eb Villegas, at 20:11 EDT Tel , Service support , cardiology- Dr Allen Operations: None Procedures: 2-D Echocardiogram, Cardiac catheterization Summary of Care Provided: The patient is a 58 year old M with no significant past medical history. He was admitted through the ED on 08/30/2018 with a complaint of chest pain. Patient said he had a very active physical life and involved in a lot of physical activities. He was playing pickle ball at the [facility] and developed left-sided chest pain which was resolved with rest but worsened with activity. He admits to shortness of breath or dizziness or nausea or vomiting. Came to the ED where initial troponin was negative. Initial EKG showed no acute ST changes. Troponins ultimately trended up to 0.581 and peaked at 0.675. He was admitted and managed for non-STEMI. Cardiology was consulted. 2D echo done showed EF of 60% with no evidence of diastolic dysfunction and mild hypokinesia of the left ventricle. RVSP was 25 mmHg. He had a cardiac cath on 08/31/2018 with successful placement of drug-eluting stents to the proximal and mid LAD with reduction of eccentric stenosis from 75% to 0 and also had balloon stent of the ostium of the diagonal artery. Patient remained stable and was admitted in the cardiac ICU overnight for monitoring. He remained stable and was discharged home on 09/01/2018. He was discharged with a prescription for p.o. aspirin, Plavix and statin as well as metoprolol. He is follow-up with his primary care doctor with cardiology was also referred for cardiac rehab. Patient seen and examined prior to discharge. He had no complaints and felt well. Review of systems otherwise negative. Labs and vitals reviewed. Home Medication reviewed and reconciled. o/e: Vital Signs Height 5 ft 10 in Weight: 179 lb Weight in Pounds 179.0 lbs BMI 25.7 Pulse Ox 97 Temperature 98 F Pulse Rate 66 Respiratory Rate 15 Blood Pressure [BP] 134/70 Blood Pressure 110/65 Blood Pressure Position [BP] Semi-Fowlers Blood Pressure Position Semi-Fowlers [] General: Alert, Oriented x3, Cooperative HEENT: Atraumatic, PERRLA, EOMI, Normocephalic Neck: Supple, No JVD, Negative Carotid Bruits Lungs: Clear to auscultation, Normal air movement, No rhonchi, No wheeze, No rales Cardiovascular: Regular rate, Regular Rhythm, Normal S1, Normal S2, No murmurs Abdomen: Bowel Sounds Present, Soft, Non Tender, Non-Distended Extremities: No edema, Capillary Refill Less than 3 Seconds Skin: No rashes, No breakdown Musculoskeletal: No Tenderness to Palpation of Joints or Extremities Lymphatic: Cervical Adenopathy Neurological: Cranial nerves II-XII grossly intact, Deep Tendon Reflexes 2+/4 and Symmetrical, Neuro grossly intact, Motor Exam 5/5 strength throughout Psych/Mental Status: Normal Affect, Appropriate Plan as above. - Physical Exam Vital Signs Temp Pulse Resp BP Pulse Ox 98 F 66 15 134/70 H 97 09/01/18 08:00 09/01/18 11:00 09/01/18 11:00 09/01/18 11:00 09/01/18 11:00 Oxygen Delivery Method Room Air Weight: 179 lb Body Mass Index (BMI) 25.7 Intake and Output for Last 24 Hours 08/30/18 08/31/18 09/01/18 23:59 23:59 23:59 Intake Total 1080 / 1080 1395 / 1395 120 / 120 Balance 1080 / 1080 1395 / 1395 120 / 120 Laboratory Tests Past 24 Hrs 08/31/18 09/01/18 09/01/18 13:43 04:05 04:05 WBC 6.9 RBC 4.23 L Hgb 13.5 Hct 39.7 L MCV 93.9 MCH 31.9 MCHC 34.0 RDW 14.6 RDW Differential 49.9 H Plt Count 206 MPV 10.5 Activated Clotting Time 180 H Sodium 142 Potassium 4.2 Chloride 109 H Carbon Dioxide 26.0 Anion Gap 7 BUN 16 Creatinine 1.12 Estim Creat Clear Calc 72.42 Est GFR (MDRD) Af Amer 86 Est GFR (MDRD) Non-Af 71 BUN/Creatinine Ratio 14.3 Glucose 90 Calcium 8.3 L Triglycerides 72 Cholesterol 195 LDL Cholesterol 136 H VLDL Cholesterol 14 HDL Cholesterol 45 Discharge Diet: Low fat/ Low Cholesterol Discharge Activity: Return to Normal Activity Weight Bearing Status: Weight bearing as tolerated Call your doctor if you observe: Shortness of breath, Chest pain Home Medications: Medications to take at Discharge Aspirin E.C. [Ecotrin] 81 mg PO DAILY@0800 #30 tab 09/01/18 Atorvastatin Calcium [Lipitor] 80 mg PO QHS #30 tab 09/01/18 Clopidogrel Bisulfate [Plavix] 75 mg PO DAILY #30 tab 09/01/18 Metoprolol Tartrate [Lopressor (beta zac)] 12.5 mg PO BID #30 tab 09/01/18 Following Prescrptions Were Given to Patient: Aspirin E.C. [Ecotrin] 81 mg PO DAILY@0800 #30 tab [facility]: [id number] Atorvastatin Calcium [Lipitor] 80 mg PO QHS #30 tab Transmission Status: [facility] Metoprolol Tartrate [Lopressor (beta zac)] 12.5 mg PO BID #30 tab Transmission Status: [facility] Clopidogrel Bisulfate [Plavix] 75 mg PO DAILY #30 tab Transmission Status: [facility] Other Amb Orders: Phase II, Outpatient Cardiac Rehab Location: None Selected Primary Care Physician: Kelsie Munoz MD [Primary Care Provider] - Please follow up with your Primary Care Physician in: one week Please Follow Up With: Derek Allen MD When: one week Patient Instructions: Heart Attack, Getting Started With Cardiac Rehab: Exercise, Exercising After a Heart Attack, Medications for Heart Disease Disposition: Home Minutes spent on discharge:: 40 Patient Condition:: Stable Medical Necessity - Tobacco Use Smoking Status: Never smoker Tobacco Use: Cigarettes Meaningful Use Info Meaningful Use Diagnoses (Choose all that apply): AMI - AMI Aspirin given w/in 24hrs of arrival?: Yes ASA at discharge?: Yes Statins at discharge?: Yes Braeden/ARB at discharge?: No Reason Braeden/ARB not ordered:: Not indicated - distance learning technician to review on outpatient basis Beta Zac at discharge?: Yes Done w/ Acute ND measure.: Yes Documented LVEF (%): 60 Code Visit Inpatient E&M: 92032 Disch Hosp
--- NOTE | 2018-09-01 14:14 | EKG12_ITS ---
Test Reason : AM Blood Pressure : / mmHG Vent. Rate : 064 BPM Atrial Rate : 064 BPM P-R Int : 194 ms QRS Dur : 092 ms QT Int : 412 ms P-R-T Axes : 073 070 048 degrees QTc Int : 425 ms Normal sinus rhythm Normal ECG When compared with ECG of 31-AUG-2018 04:56, MANUAL COMPARISON REQUIRED, DATA IS UNCONFIRMED Confirmed by ANGEL LAU, ERNESTO ([id number]), newspaper editor managing JULITO WRIGHT ([id number]) on 09/02/2018 2:12:23 PM Referred By: Rogelio Licona Confirmed By:ERNESTO ORTIZ MD
[2018-09-02 07:15] LABS: ACT Activated Clotting Time 131 sec (74-137)
== END 2018-09-01 11:55 | disposition home or self-care (01) | DRG 247 ==
LOC: ED 23:27 → PCU 08-30 00:13 → ICU 08-31 13:51
PROVIDERS: Internal Medicine; Internal Medicine Cardiovascular Disease; Nurse Practitioner Family; Admitting Provider Hospitalist; Emergency Provider Emergency Medicine; Family Provider Family Medicine; PCP Family Medicine; Referring Provider Hospitalist; Visit Provider Student in an Organized Health Care Education/Training Program
DX: I21.4 Non-ST elevation (NSTEMI) myocardial infarction (principal); E78.5 Hyperlipidemia, unspecified; I25.10 Atherosclerotic heart disease of native coronary artery without angina pectoris
CPT/HCPCS: 36415; 71045; 80048; 80061; 84484; 85025; 85027; 85347; 85610; 92921; 92928; 93005; 93306; 93458; 99152; 99153; 99285; J7030; J7040; Q9967; A4216; C1725; C1769; C1874; C1887; C9600

== ENCOUNTER 2018-09-04 00:02 | Emergency (ER) | payer BC, SELFPAY ==
[2018-08-30 00:38] VITALS: BMI 25.7
[2018-09-04 00:03] VITALS: BP 144/81; PULSE 70; RESP 16; TEMP 36.7; O2SAT 98; BMI 25.8
--- NOTE | 2018-09-04 00:17 | EKG12_ITS ---
Test Reason : CP ADMIT Blood Pressure : / mmHG Vent. Rate : 068 BPM Atrial Rate : 068 BPM P-R Int : 194 ms QRS Dur : 098 ms QT Int : 398 ms P-R-T Axes : 072 059 035 degrees QTc Int : 423 ms Normal sinus rhythm Normal ECG Confirmed by DOMONIQUE LAU, GRIFFIN ([id number]), editor at large KIMO FALLON ([id number]) on 09/04/2018 1:16:56 PM Referred By: DR LOGAN Confirmed By:GRIFFIN YOUSSEF MD
--- NOTE | 2018-09-04 00:17 | RAD_ITS ---
HISTORY: C/O CHEST PRESSURE RECENT STENTS INSERTED ADDITIONAL HISTORY: None provided. COMPARISON: 08/29/2018 TECHNIQUE: Frontal chest radiograph. Number of images including paperwork: 1 FINDINGS: LUNGS AND PLEURA: No consolidation, mass or pleural effusion. CARDIAC SILHOUETTE: Unremarkable. MEDIASTINUM AND BLANQUITA: Unremarkable. UPPER ABDOMEN: Unremarkable. SKELETON AND SOFT TISSUES: No acute findings. OTHER DEVICES AND HARDWARE: Coronary stent. RAD/Chest 1 View (Portable) IMPRESSION: No acute cardiopulmonary abnormality. at 0102 Reported and signed by: Kadie Gonzalez MD Electronically Signed: Kadie Gonzalez MD at 1:02 EDT Tel , Service support ,
[2018-09-04 00:27] LABS: Absolute Lymphocyte Count 1.83 X10^3/ul (0.83-4.51); Absolute Neutrophil Count 3.8 X10^3/uL (2.0-7.7); Basophil# 0.03 X10^3/uL; Basophil% 0.5 % (0-1); Eosinophil# 0.24 X10^3/uL; Eosinophils% 3.8 % (0-5); Hematocrit 42.6 % (40-54); Hemoglobin 14.4 g/dl (13.0-16.5); Lymphocyte # 1.83 X10^3/ul (4.0); Lymphocyte % 28.9 % (19-41); Mean Corp Hgb Conc 33.8 g/gl (32-36); Mean Corpuscular Hgb 31.4 pg (27.0-32.0); Mean Platelet Vol. 10.6 fl (6.2-12.0); Monocyte# 0.44 X10^3/uL; Neutrophil # 3.78 X10^3/uL (2.7-7.7); Neutrophil % 59.6 % (47-70); Platelet Count 211 K/mm3 (150-450); RBC Distribution Width SD 47.7 fl (35.1-43.9); Red Blood Count 4.58 M/mm3 (4.6-6.2); White Blood Count 6.3 K/mm3 (4.4-11.0)
[2018-09-04 00:32] LABS: POSITIVE COUNT NO; POSITIVE DIFFERENTIAL NO; POSITIVE MORPHOLOGY NO
[2018-09-04] MEDS: Aspirin 81 MG TAB.CHEW 324 MG PO (00:33)
[2018-09-04 00:36] VITALS: BP 129/85; PULSE 67; RESP 17; O2SAT 97
[2018-09-04 00:37] VITALS: O2SAT 97
[2018-09-04 00:42] LABS: Anion Gap 9 (5-15); BUN 20 mg/dL (7-18); BUN/Creat Ratio 15.6 RATIO (10-20); Calcium,Total 8.9 mg/dL (8.5-10.1); Chloride 104 mmol/L (98-107); Creatinine, Serum 1.28 mg/dL (0.70-1.30); EST Glomerular Filtration Rate 61 mL/min (>60); Est Glom Filt Rate - Afr Amer 74 mL/min (>60); Estimated Creatinine Clearance 63.37 ml/min; Glucose 115 mg/dL (74-106); Potassium 3.7 mmol/L (3.5-5.1); Sodium Level 139 mmol/L (136-145)
--- NOTE | 2018-09-04 00:50 | ED.RN ---
DR ORTIZ PAGED FOR DR MARKS
[2018-09-04 01:24] VITALS: BP 133/85; PULSE 65; RESP 20; O2SAT 95
--- NOTE | 2018-09-04 01:24 | ED.DCSUM_ITS ---
- ER Visit Summary Date of Service: 09/04/18 Chief Complaint: Chest pain, palpitations History of Present Illness: The patient is a 58 M who presents with chest pressure and palpitations. Hours ago. He states he was on his couch and had some pressure in his chest. He states that has gone away. He felt like his heart was racing. Nothing made it better or worse. He did feel little bit lightheaded at the time. He had 2 stents placed 4 days ago after having some chest pain with exertion while working out. 2 stents were placed in the mid and distal LAD. Sees Dr. Sandoval. Physical Examination: Vital signs reviewed. HEENT exam unremarkable. Heart is regular rate and rhythm without murmurs. Lungs are clear to auscultation. Abdomen is soft and nontender. Extremities reveal no edema. Peripheral pulses are equal. Skin exam normal. Neurologic exam normal. Test Results: EKG is sinus rhythm with a rate of 68. No ST changes. Chest x- ray unremarkable. Laboratory studies are all normal except for troponin of 0.175. This is trending down from a high of 0.65 days ago. Emergency Department Course and Treatment: The patient was given aspirin. Currently he is symptom-free. I spoke with Dr. Woods, on-call for Dr. Sandoval. He states that the troponin is likely trending down. Since he is symptom-free and everything looks well he can be discharged to follow-up. He does have a follow-up appointment with Dr. Sandoval already scheduled. Family is comfortable with this plan. Treatment Plan: [] Disposition: Discharge Impression: Palpitations, recent cardiac catheterization with stent This note was generated with [employer] dictation software. It may contain incorrect words, spelling, and punctuation that were not noted in review of the chart prior to signing ED Disposition - Plan for ED Patient: Referrals: Kelsie Munoz MD [Primary Care Provider] -
--- NOTE | 2018-09-04 01:26 | ED.DEP ---
ED Disposition - Plan for ED Patient: Disposition: Home or Assisted Living Instructions: Palpitations Referrals: Kelsie Munoz MD [Primary Care Provider] -
[2018-09-04 01:49] VITALS: BP 125/84; PULSE 66; RESP 12; O2SAT 94
== END 2018-09-04 01:53 | disposition home or self-care (01) ==
PROVIDERS: Emergency Provider Emergency Medicine; Family Provider Family Medicine; PCP Family Medicine
DX: R00.2 Palpitations (principal); Z95.5 Presence of coronary angioplasty implant and graft; R07.89 Other chest pain; R42 Dizziness and giddiness; I25.10 Atherosclerotic heart disease of native coronary artery without angina pectoris; Z79.899 Other long term (current) drug therapy
CPT/HCPCS: 71045; 80048; 84484; 85025; 93005; 99285; A4216

== ENCOUNTER → 2018-09-11 | Outpatient (CLI) | payer BC, SELFPAY ==
[2018-09-04 00:03] VITALS: BMI 25.8
[2018-09-05 14:04] VITALS: BMI 25.7
--- NOTE | 2018-09-11 08:40 | PCM.CR.HP2 ---
CR - History & Physical - General Arrival date:: 09/11/18 Arrival time:: 08:40 Date of CR Evaluation:: 09/11/18 Referring Physician: Dr. Bud Allen Primary Diagnosis: PCI - History of Present Cardiac Event Onset Date: Enter Onset Date of cardiac illnesses in Comment field below Current stable Angina Pectoris:: Yes - 08/29/18 Acute Myocardial Infarction within 12 months:: Yes - NSTEMI Coronary Artery Bypass Graft:: No Heart valve replacement or repair:: No PTCA or coronary stenting:: Yes - 08/31/18 Heart or Heart-Lung Transplant:: No Heart Failure EF <35%:: No Type of Symptoms:: chest pressure. Interventions with present event:: ECG, labs, heart cath Were there any complications?: no - Medications Home Medications: Ambulatory Orders Medication Instructions Recorded aspirin 81 mg tablet,delayed 81 mg PO DAILY@0800 #90 tab 09/05/18 release atorvastatin 80 mg tablet 80 mg PO QHS #90 tab 09/05/18 clopidogrel 75 mg tablet 75 mg PO DAILY #90 tab 09/05/18 metoprolol tartrate 25 mg tablet 12.5 mg PO BID #90 tab 09/05/18 - Allergies Allergies/Adverse Reactions: Allergies No Known Allergies Allergy (Verified 09/05/18 14:04) - Sleep Disorder Evaluation Hx of Sleep Apnea: No Do you snore loudly (louder than talking or can be heard through closed doors)?: Yes Do you often feel tired/ fatigued/ sleepy during daytime?: No Has anyone observed you stop breathing during sleep?: No History of Hypertension (for STOP score): No STOP Results: Negative Advanced Directives - Advanced Directives Power of Training And Development Assistant: No Living Will: No Advance Directives Information Provided: Yes Advance Directives on File: No DNR Order?:: No Past Medical History - Past Medical Illness Medical History: Past Medical History (Last Updated 09/01/18 @ 08:34 by Gia Zamorano) Atherosclerotic heart disease of [place] coronary artery without angina pectoris (Chronic) I25.10 Denies previous medical history - Past Surgical History Surgical History: Past Surgical History (Last Updated 09/01/18 @ 08:34 by Gia Zamorano) S/P coronary artery stent placement (Chronic) Onset Date: ~08/31/18 Z95.5 PTCA/ONEIL to prox/mid LAD and PCI w/PTCA balloon only to ostium of diag #1 08/31/18 Surgical History: herniorrhaphy - X2, - - foot surg for bunion removal - Family History Summary Family History: Family History (Last Updated 09/05/18 @ 14:50 by Jeff Kent NP-C) Mother Carotid artery disease Hypertension Thyroid disorder Grandfather Heart disease Grandfather Heart disease Social History - Smoking History Smoking Status: Never smoker Hx Tobacco Use: No Hx Smoking Exposure: No - Alcohol Use Alcohol Usage: Yes - socially - Substance Abuse Hx Substance Use: No - Occupation Occupation (List type of work in comments):: Retired - Hobbies, Recreation, Social Activities Hobbies: Other - water and snow ski, hunting, fishing Recreational Activities: I am able to engage in most, but not all activities Social Environment - Status Marital Status: - Current Living Arrangements Living Environment:: Family - son, Spouse - Children How many children do you have?: 2 Do any of your children live nearby?: Yes - Safety Do you feel safe in your surroundings?: Yes - Assistance Do you need any assistance at home?: no Review of Systems - Review of Systems Hints: Right click = Denies (Slash). Left click = Reports ([place]) Review of Present Symptoms: Reports: Appetite - Normal, Appetite - Special Diet - cardiac diet. Denies: Shortness of Breath at Rest, Shortness of Breath with Exertion, PVD, Operative Discomfort, Angina, Wound Healing, Dizziness/Lightheadedness, Fatigue, Heart Arrhythmia/Irregularities, Sleep - Normal, Sexual Changes - Pain Is Patient Pain Free?: Yes Risk Factor Assessment - Chief Complaint Chief Complaint: For CR. - Vital Signs Pulse Ox: 97 - Pulse Pulse Rate: 61 Pulse Rhythm: Regular - Hypertension Blood Pressure Sitting - Right Arm: 116/82 Blood Pressure Sitting - Left Arm: 104/60 - Blood Cholesterol/Lipids Total Cholesterol (mg/dL) Goal = less than 200 mg/dL: 195 HDL Cholesterol (mg/dL) Goal = less than 40 mg/dL: 45 LDL Cholesterol (mg/dL) Goal = less than 70 mg/dL: 136 Triglycerides (mg/dL) Goal = less than 150 mg/dL: 72 - Diabetes Nutrition Referral for Diabetes: No - Obesity Height: 5 ft 10 in Weight:: 179 lb Weight in Pounds: 179.0 lbs Weight Source: Stated by Patient Body Mass Index (BMI): 25.7 Nutritional Referral for Obesity: No - Physical Inactivity Physical Inactivity: Reg Exercise 30 min/day - Risk Stratification Risk Guidelines: Lowest Risk: Risk Factor for Smoking, Risk Factor for Diabetes, Risk Factor for Obesity, Risk Factor for Hypertension, Risk Factor for Sedentary Lifestyle, Risk Factor for Depression, Moderate Risk: Risk Factor for Dyslipidemia - For Smoking Smoking Risk Guidelines: Smoking Low Risk: None or quit greater than 6 months ago. Smoking Moderate Risk: Smoker or quit 6 months or less ago. Smoking High Risk: Smoker - For Dyslipidemia Dyslipidemia Risk Guidelines: Low Risk: Moderate Risk: High Risk: 15-25% fat 25.1-29% fat >/= 30% fat. <7% sat fat 7-9% sat fat >9% sat fat. <150 mg chol 150-299 mg chol >/= 300 mg chol. LDL <100 LDL 100-129 LDL >/= 130. Chol/HDL ratio <5.0 Chol/HDL ratio 5.0-6.0 Chol/HDL ratio >6.0. Triglycerides <100 Triglycerides 100-149 Triglycerides >/= 150 - For Diabetes Mellitus Diabetes Risk Guidelines: Diabetes Low Risk: HgA1c <6.5% and/or FBG <120. Diabetes Moderate Risk: HgA1c 6.6-7.9% and/or FBG 120-180. Diabetes High Risk: HgA1c >/= 8% and/or FBG >180 - For Obesity/Overweight Obesity/Overweight Risk Guidelines: Obesity Low Risk: BMI <25.0. Obesity Moderate Risk: BMI 25-29.9. Obesity High Risk: BMI >/= 30.0 - For Hypertension Hypertension Risk Guidelines: Hypertension Low Risk: Systolic <120 and Diastolic <80. Hypertension Moderate Risk: Systolic 120-139 and Diastolic 80-89. Hypertension High Risk: Systolic >/= 140 and Diastolic >/= 90 - For Sedentary Lifestyle Sedentary Lifestyle Risk Guidelines: Sedentary Lifestyle Low Risk: >/= 1,500 kcal/week. Sedentary Lifestyle Moderate Risk: 700-1,499 kcal/week. Sedentary Lifestyle High Risk: < 700 kcal/week - For Depression Depression Risk Guidelines: Depression Low Risk: Not clinically depressed. Depression Moderate Risk: Mildly depressed. Depression High Risk: Clinically depressed - Family History Family History: Family History (Last Updated 09/05/18 @ 14:50 by LUCILLE JassoC) Mother Carotid artery disease Hypertension Thyroid disorder Grandfather Heart disease Grandfather Heart disease Motivation - Motivation to Participate On a scale of 1 to 10, how prepared are you to commit to attending program?: 9
[2018-09-11 09:03] VITALS: BP 104/60; BP 116/82; PULSE 61; O2SAT 97; BMI 25.7
--- NOTE | 2018-09-11 09:50 | PCM.CR.ITP ---
General Information - General Information Admitting Diagnosis: NSTEMI, PCI W/COROANRY STENTING - Education/Goals Barriers to Learning: None Individual Counseling: Initial Assessment: Abnormal Cholesterol Levels Cardiac Rehabilitation Goals: 1. Maintain the individual as the primary focus of care. 2. To improve the patient's quality of life. 3. Identification of cardiac risk factors and provide cardiac risk factor management. 4. Enhance the psychosocial status of the patient. 5. Reconditioning enough to allow the patient to resume customary activities. 6. Control symptoms of cardiac disease Scale for measuring improvement of personal goals: Enter appropriate number in Comments. 2 = Unchanged. 3 = Slightly Better. 4 = Moderate Improvement. 5 = Met my Goal Personal Goals: Initial Assessment: Improve muscle strength and endurance, Improve diet and eating habits (eat healthier), Control risk factors (learn risk factor modification) Exercise - Initial Assessment - Visit Date of Eval: 09/11/18 Session #:: 0 - START CR ON Saturday09/15/2018 - Stages of Change Stages of Change:: Action - Physician Prescribed Exercise Modalities: Treadmill, Rower, Airdyne Frequency (days/week): 3x/week for 12 weeks [36 sessions] Duration (Minutes):: 30-45 Intensity: 60-80% age predicted maximum heart rate reserve METs - Progression: 0.5-1.0 MET, RPE 11-14 WEEK: 3.5 Target Heart Rate:: 104-136 - Hypertension Do any of the following apply?: No Resting Blood Pressure:: 116/82 Peak Exercise Blood Pressure:: 104/60 - Intervention Home Exercise/Activity Goal:: Moderate Exercise 30 min/day x 5 days/wk - PATIENT PHYSICALLY ACTIVE 30+ MINUTES DAILY - Education Goals:: Warm-up, RPE TYE Scale, S/S, Safe Exercise, Self-Monitoring - Exercise Program Goals Exercise Program Goals: Aerobic Activity >30 min Nutrition - Initial Assessment - Program Goals Nutrition Program Goals: LDL <70. Total Cholesterol <200. HDL >45. Triglycerides <150. HgbA1C <7%. BMI <25 - Visit Date of Assessment:: 09/11/18 - Stages of Change Stages of Change:: Action - Lipids Total Cholesterol (mg/dL) Goal = less than 200 mg/dL: 195 HDL Cholesterol (mg/dL) Goal = less than 45 mg/dL: 45 LDL Cholesterol (mg/dL) Goal = less than 70 mg/dL: 136 Triglycerides (mg/dL) Goal = less than 150 mg/dL: 72 - Diabetes Diabetes:: No Insulin: No Non-Insulin Dependent?: No Do you monitor your blood sugar at home?: No - Weight Management Height: 5 ft 10 in Weight:: 179 lb Body Fat %:: 25.7 - Intervention Referral to dietitian:: No Referral to Diabetic Clinic:: No Will attend diet classes:: Yes - Education Gave educational materials for:: Healthy eating Tobacco - Initial Assessment - Program Goals Tobacco Program Goals: Complete smoking cessation. Attend education classes. Improve Knowledge Test score - Stage of Change Stages of Change:: Action - Learning Barriers Learning Barriers: Ready to Learn - Family Support Do you have family support?: Yes - Tobacco Use Tobacco Use: Non-smoker - Intervention Smoking Cessation Referral:: No Individual Education/Counseling:: No Education Schedule Given:: Yes - Education Attended class for:: Treating Heart Disease, How The Heart Works, What it means to have Heart Disease, How Coronary Artery Disease is Diagnosed, Heart Procedures, What Heart Medications Do, Risk Factors & Modifications, Living an Active Life, Nutrition, Emotions & Heart Disease, Stress Management & Relaxation, Sleep Disorders & Heart Disease Psychosocial - Initial Assess - Target Goals Target Goals: Assess presence or absence of depression. Using a valid screening tool, maximizes coping skills. Positive support system - Stages of Change Stages of Change:: Action - Psychosocial Test Tool Used:: HANDS Depression Questionnaire - Intervention PS - Interventions: Yes Attend Stress Management Classes, Yes Uses Stress Management Skills, No Referral to Mental Health, No Referral to [facility] Case Management, No Referral to Physician - Education Gave educational materials for:: Coping techniques, Signs & symptoms of depression, Stress management, Relaxation techniques - Patient/Program Goal Preventative Medication(s):: Aspirin, ZENIA inhibitor, Clopidogrel, Beta jose, Statin/lipid - Assistive Devices Assistive Devices:: None Fall Risk Assessed:: Yes Patient Health Questionnaire Initial Assessment 1. Little interest or pleasure in doing things: Not at all 2. Feeling down, depressed, or hopeless: Not at all 3. Trouble falling or staying asleep, or sleeping too much: Not at all 4. Feeling tired or having little energy: Not at all 5. Poor appetite or overeating: Not at all 6. Feeling bad about yourself -- or that you are a failure or have let yourself or your family down: Not at all 7. Trouble concentrating on things, such as reading the newspaper or watching television: Not at all 8. Moving or speaking so slowly that other people could have noticed. Or the opposite - being so fidgety or restless that you have been moving around a lot more than usual: Not at all 9. Thoughts that you would be better off , or of hurting yourself in some way: Not at all How difficult have these problems made it for you to do your work, take care of things at home, or get along with other people?: Not difficult at all Total Score: 0 JAMES-Q SV Test - Statements CAD is a disease of the arteries in the heart: False Examples of risk factors for heart disease: True Angina is chest pain or discomfort: True The benefits of resistance training include: True Eating more meat and dairy products: False Anti-platelet medications such as aspirin are important: True The only effective way to manage stress: False An exercise warm-up slowly increases heart rate: True Prepared, processed foods usually have high sodium: True Depression is common after a heart attack: True The statin medications lower cholesterol: True To control blood pressure, lower the amount of sodium: True If someone gets chest discomfort during walking: False Transfats are partially hydrogenated vegetable oils: True Sleep apnea that is not treated increases the risk: False To control cholesterol, one should become a vegetarian: False Someone knows if he/she is exercising at the right level: True Diabetes cannot be prevented with exercise & health eating: False Stress is a large risk for heart attack: True A diet that can help lower blood pressure is rich in: True - Total Score Total Correct Responses: 20 Self-Efficacy Initial Assessment We would like to know how confident you are in doing certain activities. Please select your confidence level for:: Select your confidence level for the following using the scale 1-10 where 1 is not at all confident and 10 is totally confident. Your score is the average of all 6 responses. Fatigue: How confident are you that you can keep the fatigue caused by your disease from interfering with the things you want to do? Select Number: 10 Physical Discomfort or Pain: How confident are you that you can keep the physical discomfort or pain of your disease from interfering with the things you want to do? Select Number: 10 Emotional Distress: How confident are you that you can keep the emotional distress caused by your disease from interfering with the things you want to do? Select Number: 10 Other Symptoms or Health Problems: How confident are you that you can keep other symptoms or health problems from interfering with the things you want to do? Select Number: 10 Different Tasks and Activities: How confident are you that you can do the different tasks and activities needed to manage your health condition so as to reduce your need to see a doctor? Select Number: 10 Medication: How confident are you that you can do things other than just taking medication to reduce how much your illness affects your everyday life? Select Number: 10 Total Score:: 10 Nutrition Survey - Nutrition Survey Instructions Scoring Instructions: Scoring is as follows: Yes = 1 points. No = 0 point. Patient score that is >/=12 is considered to be at potential nutritional risk and could benefit from a referral to a registered dietitian. - Nutrition Survey Initial Have you lost >10 lbs over the past 2 months without trying?: No Are you following a special diet at home for diabetes, low fat, or low salt?: No Are you interested in meeting with a dietitian for help understanding your diet?: No Do you eat less than 3 meals a day?: No Do you eat fatty meats (mueller, sausage, ribs, etc), fried foods, desserts, large amounts of salad dressings, margarine, butter, or cheese most days?: Yes Do you have food allergies? [Enter types in comment field]: No Do you eat in restaurants more than 3 times a week?: No Do you season food with salt, seasoning salt, or garlic salt?: Yes Do you used canned, boxed, frozen meals, or soups, seasoning packets?: No Total Score:: 2
[2018-09-11 10:09] VITALS: BP 104/60; BP 116/82
== END | disposition home or self-care (01) ==
LOC: CR 08:31
PROVIDERS: Family Provider Family Medicine; PCP Family Medicine; Referring Provider Internal Medicine Cardiovascular Disease; Visit Provider Internal Medicine Cardiovascular Disease
DX: I25.2 Old myocardial infarction (principal); I25.10 Atherosclerotic heart disease of native coronary artery without angina pectoris; Z95.5 Presence of coronary angioplasty implant and graft

== ENCOUNTER 2018-09-24 09:15 | Outpatient (RCR) | payer BC, SELFPAY ==
[2018-09-11 09:03] VITALS: BMI 25.7
== END 2018-09-24 23:59 ==
LOC: CR 09:15
PROVIDERS: Family Provider Family Medicine; PCP Family Medicine; Referring Provider Internal Medicine Cardiovascular Disease; Visit Provider Internal Medicine Cardiovascular Disease
DX: I25.10 Atherosclerotic heart disease of native coronary artery without angina pectoris (principal); I21.4 Non-ST elevation (NSTEMI) myocardial infarction; Z95.5 Presence of coronary angioplasty implant and graft
CPT/HCPCS: 93798

== ENCOUNTER 2018-10-24 09:15 | Outpatient (RCR) | payer BC, SELFPAY ==
[2018-09-01 08:43] VITALS: BMI 25.7
[2018-09-11 09:03] VITALS: BMI 25.7
--- NOTE | 2018-10-13 13:10 | PCM.CR.ITP ---
Exercise - 30-day Assessment - Visit Date of Eval: 10/13/18 Session #:: 11 - patient actively involved in his CR. - Stages of Change Stages of Change:: Action - Physician Prescribed Exercise Modalities: Treadmill, Rower, Airdyne Frequency (days/week): 3 Duration (Minutes):: 30-45 Intensity: 60-80% age predicted maximum heart rate reserve METs - Progression: 0.5-1.0 MET, RPE 11-14 WEEK: 7.6 up from 5.5 Target Heart Rate:: 104-136 w/ max HR 127 - Hypertension Resting Blood Pressure:: 106/72 Peak Exercise Blood Pressure:: 158/84 Medication Changes:: No - Intervention Home Exercise/Activity Goal:: Moderate Exercise 30 min/day x 5 days/wk - Education Goals:: Warm-up, RPE TYE Scale, S/S, Safe Exercise, Self-Monitoring - Exercise Program Goals Exercise Program Goals: Aerobic Activity >30 min Nutrition - Initial Assessment - Program Goals Nutrition Program Goals: LDL <70. Total Cholesterol <200. HDL >45. Triglycerides <150. HgbA1C <7%. BMI <25 - Diabetes Do you monitor your blood sugar at home?: No Nutrition - 30-Day Assessment - Program Goals Nutrition Program Goals: LDL <70. Total Cholesterol <200. HDL >45. Triglycerides <150. HgbA1C <7%. 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 - Intervention Referral to dietitian:: No Referral to Diabetic Clinic:: No Will attend diet classes:: Yes - Education Attended class for:: Healthy eating Tobacco - Initial Assessment - Program Goals Tobacco Program Goals: Complete smoking cessation. Attend education classes. Improve Knowledge Test score - Learning Barriers Learning Barriers: Ready to Learn Tobacco - 30-Day Assessment - Program Goals Tobacco Program Goals: Complete smoking cessation. Attend education classes. Improve Knowledge Test score - Stage of Change Stages of Change:: Action - Learning Barriers Learning Barriers: Participates in education - Family Support Do you have family support?: Yes - Tobacco Use Tobacco Use: Non-smoker Do you use smokeless tobacco?: No - Intervention Smoking Cessation Referral:: No Individual Education/Counseling:: No Education Schedule Given:: Yes - Education Attended class for:: Treating Heart Disease, How The Heart Works, What it means to have Heart Disease, How Coronary Artery Disease is Diagnosed, Heart Procedures, What Heart Medications Do, Risk Factors & Modifications, Living an Active Life, Nutrition, Emotions & Heart Disease, Stress Management & Relaxation, Sleep Disorders & Heart Disease Psychosocial - Initial Assess - Target Goals Target Goals: Assess presence or absence of depression. Using a valid screening tool, maximizes coping skills. Positive support system - Psychosocial Test Tool Used:: HANDS Depression Questionnaire - Assistive Devices Fall Risk Assessed:: Yes Psychosocial - 30-Day Assess - Target Goals Target Goals: Assess presence or absence of depression. Using a valid screening tool, maximizes coping skills. Positive support system - Stages of Change Stages of Change:: Action - Psychosocial Test Tool Used:: HANDS Depression Questionnaire - Intervention PS - Interventions: Yes Attend Stress Management Classes, Yes Uses Stress Management Skills, No Referral to Mental Health, No Referral to [facility] Case Management, No Referral to Physician - Education Attended classes for:: Coping techniques, Signs & symptoms of depression, Stress management, Relaxation techniques - Patient/Program Goal Preventative Medication(s):: Aspirin, ZENIA inhibitor, Clopidogrel, Beta jose, Statin/lipid - Assistive Devices Assistive Devices:: None Fall Risk Assessed:: Yes Patient Health Questionnaire 30-Day Re-eval Assessment 1. Little interest or pleasure in doing things: Not at all 2. Feeling down, depressed, or hopeless: Not at all 3. Trouble falling or staying asleep, or sleeping too much: Not at all 4. Feeling tired or having little energy: Not at all 5. Poor appetite or overeating: Not at all 6. Feeling bad about yourself -- or that you are a failure or have let yourself or your family down: Not at all 7. Trouble concentrating on things, such as reading the newspaper or watching television: Not at all 8. Moving or speaking so slowly that other people could have noticed. Or the opposite - being so fidgety or restless that you have been moving around a lot more than usual: Not at all 9. Thoughts that you would be better off , or of hurting yourself in some way: Not at all How difficult have these problems made it for you to do your work, take care of things at home, or get along with other people?: Not difficult at all Total Score: 0 Self-Efficacy 30-Day Re-eval Assessment We would like to know how confident you are in doing certain activities. Please select your confidence level for:: Select your confidence level for the following using the scale 1-10 where 1 is not at all confident and 10 is totally confident. Your score is the average of all 6 responses. Fatigue: How confident are you that you can keep the fatigue caused by your disease from interfering with the things you want to do? Select Number: 10 Physical Discomfort or Pain: How confident are you that you can keep the physical discomfort or pain of your disease from interfering with the things you want to do? Select Number: 10 Emotional Distress: How confident are you that you can keep the emotional distress caused by your disease from interfering with the things you want to do? Select Number: 10 Other Symptoms or Health Problems: How confident are you that you can keep other symptoms or health problems from interfering with the things you want to do? Select Number: 10 Different Tasks and Activities: How confident are you that you can do the different tasks and activities needed to manage your health condition so as to reduce your need to see a doctor? Select Number: 10 Medication: How confident are you that you can do things other than just taking medication to reduce how much your illness affects your everyday life? Select Number: 10 Total Score:: 10
[2018-10-13 13:14] VITALS: BP 106/72; BP 158/84
== END 2018-10-25 23:59 ==
LOC: CR 09:15
PROVIDERS: Family Provider Family Medicine; PCP Family Medicine; Referring Provider Internal Medicine Cardiovascular Disease; Visit Provider Internal Medicine Cardiovascular Disease
DX: I25.10 Atherosclerotic heart disease of native coronary artery without angina pectoris (principal); I21.4 Non-ST elevation (NSTEMI) myocardial infarction; Z95.5 Presence of coronary angioplasty implant and graft
CPT/HCPCS: 93798

== ENCOUNTER 2018-10-31 09:15 | Outpatient (RCR) | payer BC, SELFPAY ==
[2018-09-01 08:43] VITALS: BMI 25.7
[2018-09-11 09:03] VITALS: BMI 25.7
[2018-10-26 01:00] VITALS: BP 106/72; BP 158/84
== END 2018-11-24 23:59 ==
LOC: CR 09:15
PROVIDERS: Family Provider Family Medicine; PCP Family Medicine; Referring Provider Internal Medicine Cardiovascular Disease; Visit Provider Internal Medicine Cardiovascular Disease
DX: I25.10 Atherosclerotic heart disease of native coronary artery without angina pectoris (principal); I21.4 Non-ST elevation (NSTEMI) myocardial infarction; Z95.5 Presence of coronary angioplasty implant and graft
CPT/HCPCS: 93798

== ENCOUNTER → 2018-11-13 16:04 | Outpatient (CLI) | payer BC, SELFPAY ==
[2018-09-11 09:03] VITALS: BMI 25.7
[2018-11-13 17:41] LABS: AST(SGOT) 24 U/L (15-37); Alanine Aminotransfer ALT/SGPT 42 U/L (16-61); Cholesterol 133 mg/dL (200); High Density Lipoprotein 46 mg/dL; Triglycerides 80 mg/dL; Very Low Density Lipoprotein 16 mg/dL (5-40)
== END ==
PROVIDERS: Family Provider Family Medicine; PCP Family Medicine; Referring Provider Family Medicine; Visit Provider Family Medicine
DX: I25.10 Atherosclerotic heart disease of native coronary artery without angina pectoris (principal)
CPT/HCPCS: 36415; 80061; 84450; 84460

== ENCOUNTER → 2019-09-16 15:00 | Outpatient (CLI) | payer BC, SELFPAY ==
[2019-07-16 11:38] VITALS: BMI 26.1
[2019-09-16 18:07] LABS: AST(SGOT) 21 U/L (15-37); Alanine Aminotransfer ALT/SGPT 40 U/L (16-61); Anion Gap 2 (5-15); BUN 15 mg/dL (7-18); BUN/Creat Ratio 12.4 RATIO (10-20); Calcium,Total 8.6 mg/dL (8.5-10.1); Chloride 107 mmol/L (98-107); Cholesterol 118 mg/dL (200); Creatinine, Serum 1.21 mg/dL (0.70-1.30); EST Glomerular Filtration Rate 65 mL/min (>60); Est Glom Filt Rate - Afr Amer 78 mL/min (>60); Glucose 106 mg/dL (74-106); High Density Lipoprotein 46 mg/dL; PSA,Total - Annual Screen 0.95 ng/mL (0.00-4.00); Sodium Level 137 mmol/L (136-145); Triglycerides 65 mg/dL; Very Low Density Lipoprotein 13 mg/dL (5-40)
== END ==
PROVIDERS: PCP Family Medicine; Referring Provider Family Medicine; Visit Provider Family Medicine
DX: Z00.00 Encounter for general adult medical examination without abnormal findings (principal); I25.10 Atherosclerotic heart disease of native coronary artery without angina pectoris
CPT/HCPCS: 36415; 80048; 80061; 84153; 84450; 84460; G0103

== ENCOUNTER 2021-09-21 08:27 | Outpatient (CLI) | payer BC, SELFPAY ==
[2021-09-21 11:22] LABS: AST(SGOT) 36 U/L (15-37); Alanine Aminotransfer ALT/SGPT 53 U/L (16-61); Albumin, Serum 3.6 g/dL (3.2-5.0); Alkaline Phosphatase 45 U/L (45-117); Bilirubin, Direct 0.13 mg/dL (0.00-0.30); Cholesterol 135 mg/dL (200); Globulin 3.3 g/dL (2.2-4.2); High Density Lipoprotein 48 mg/dL; Protein, Total 6.9 g/dL (6.4-8.2); Triglycerides 50 mg/dL; Very Low Density Lipoprotein 10 mg/dL (5-40)
== END 2021-09-21 23:59 | disposition home or self-care (01) ==
LOC: MFPLAB 08:30
PROVIDERS: PCP Family Medicine; Referring Provider Family Medicine; Visit Provider Internal Medicine Cardiovascular Disease
DX: E78.00 Pure hypercholesterolemia, unspecified (principal)
CPT/HCPCS: 36415; 80061; 80076

== ENCOUNTER → 2022-09-21 | Outpatient (CLI) | payer BC, SELFPAY ==
--- NOTE | 2022-09-21 09:55 | RAD_ITS ---
EXAM: XR LUMBOSACRAL SPINE COMPLETE WITH FLEXION/EXTENSION, 6 OR MORE VIEWS CLINICAL INDICATION: left radicular pain TECHNIQUE: Lateral, frontal, oblique and lateral flexion/extension views of the lumbar spine and sacrum. COMPARISON: No relevant prior studies available. FINDINGS: VERTEBRAE: Normal. Preserved vertebral body height. No fracture. No spondylolisthesis. Preservation of the normal lumbar lordosis. DISC SPACES: No acute findings. Disc spaces are maintained. Mild facet arthropathy at L3-4, L4-5 and L5-S1. GASTROINTESTINAL TRACT: Normal bowel gas pattern. RAD/L/S Spine w Bend Min 6 Vw IMPRESSION: Mild spondylosis. Electronically Signed: Dno Huertas MD at 15:01 EDT ,
== END | disposition home or self-care (01) ==
LOC: MTRAD 09:55
PROVIDERS: PCP Family Medicine; Referring Provider Family Medicine; Visit Provider Family Medicine
DX: M54.50 Low back pain, unspecified (principal)
CPT/HCPCS: 72114

== ENCOUNTER → 2022-09-24 | Outpatient (CLI) | payer BC, SELFPAY ==
[2022-09-24 10:36] LABS: AST(SGOT) 18 U/L (15-37); Alanine Aminotransfer ALT/SGPT 26 U/L (16-61); Albumin, Serum 3.8 g/dL (3.2-5.0); Alkaline Phosphatase 59 U/L (45-117); Bilirubin, Direct 0.16 mg/dL (0.00-0.30); Cholesterol 216 mg/dL (200); Globulin 3.9 g/dL (2.2-4.2); High Density Lipoprotein 48 mg/dL; Protein, Total 7.7 g/dL (6.4-8.2); Triglycerides 79 mg/dL; Very Low Density Lipoprotein 16 mg/dL (5-40)
== END | disposition home or self-care (01) ==
PROVIDERS: PCP Family Medicine; Referring Provider Nurse Practitioner Family; Visit Provider Nurse Practitioner Family
DX: E78.00 Pure hypercholesterolemia, unspecified (principal)
CPT/HCPCS: 36415; 80061; 80076

== ENCOUNTER 2022-10-25 09:00 | Outpatient (RCR) | payer BC, SELFPAY ==
--- NOTE | 2022-09-27 08:23 | HP.PTEVAL_ITS ---
Patient's Visit Information Visit Information Visit Information: DENNISE GO is a 62 year old M referred to Physical Therapy by Dr. Kelsie Munoz MD with a diagnosis of Lumbar Strain. Date of Evaluation: 09/27/22 Physical Therapist: Karen Reyes DPT Visit Plan Frequency: 2x /Week Duration: 4 Weeks Plan: Focus on core strength/stabilization- decrease radicular s/s- extension bias HEP Given IE: Posture, TA Contraction, Dural Stretching, Prone on Elbows Subjective Subjective: Back in late May he was picking up wood and moving logs and ever since then he has had some low back soreness/tenderness and goes down his left leg to the knee. The pain comes and goes. Sitting is fine but getting in/out of vehicles and walking up grades and being active really bothers him. The pain is along the lumbar spine and radiates to both sides of the hips but only down the left leg. Does not radiate past the knee. Only radiates when he is bent fo rwards- it comes out of the leg almost immediately. The pain in his back is dull and comes and goes. The pain that radiates is more sharp and tingling. No N/T in the toes. Saw the MD and he took x-rays- they did not do an MRI. No pain that radiates up the back. Sleep: not disturbed- back and side sleeper. He keeps a pillow between his legs when he is on his side. He had back issues in his early 20s- slid on ice and wrenched his back chiropractor- within a month was better- no surgery or injections. No loss or change or bowel or bladder. 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 Normally water ski, play pickle ball, play with grandkids due to fear of his back hurting. Dr. Munoz gave him an injection on Saturday which helped a little bit. PMHx: MA 2019 Meds: blood pressure, low dose asprin. Objective Objective: Posture: FH, RS- can correct with verbal cues Gait: no deviation noted- good arm swing and trunk rotation HR/TR: able SLS: 15 sec but reports increased instability left>right Sensation: diminished to gross touch bilateral on top or left knee Reflex: WNL to patellar ROM: Lumbar: Flexion: hands to toes discomfort returning to neutral- extn: WNL, SB and Rotation all WFL but reports pain with sb and rotation left Strength: Core: fair, Hip: Left: 4/5 throughout Right: 4+/5, Knee: 4+/5, Ankle: 5/5. Palpation: not tender to touch Flex: HS: severe, Gastroc: severe, ITband: severe Special Test: Flexion: increases pain, Extn: decreases pain Special Tests L Hip Scour: Positive L Hip DARBY - Intraarticular Pathology: Positive L Hip FADDIR - Labrum: Positive L Hip Impingement Provocation - Labrum: Positive L Hip Trendelenberg - Glut Medius: Positive Balance/Special Test Scores Oswestry Low Back Score: 8 Goals Goal 1:: Patient will be I with HEP and progression Goal Time Frame: 4-6 Weeks Goal 2:: Patient will maintain proper posture t/o tx session to demo increased core s/s Goal Time Frame: 4-6 Weeks Goal 3:: Patient will report no radicular s/s for 1 week Goal Time Frame: 4-6 Weeks Goal 4:: Patient will report 80% improvement Goal Time Frame: 4-6 Weeks Rehabilitation Potential Physical Therapy Diagnosis: Patient presents with hypomobility- he has decreased LE and core strength/stabilization, flex and muscular endurance leading to poor posture and increased pain with ADL's. Rehabilitation Potential: Good Anticipated Interventions Patient/Client Instruction: Educate patient on: Benefits of Fitness Program Therapeutic Exercise to Include: Strength training, Endurance training, Balance training, Coordination, Agility training, Body mechanics, Postural training, Flexibilty training, Gait and locomotor training, Neuromotor development, Passive ROM, Active ROM, Dynamic Lumbar Stabilization and Scapular Strength/Stabilization For the Purpose of:: To improve muscle performance and motor function TENS: Yes Thermo therapy (hot pack): Yes Ultrasound (thermal/non thermal): Yes Text: Thank you for the opportunity to evaluate your patient. For Medicare and Medicare HMO plans, please review the plan of care and approve it. It will need to be FAXED BACK to us at [phone] for Medicare purposes. For Medicare only, by signing this I certify the plan of care. Please let me know if there are questions or concerns regarding this plan of care. Physician Signature: Date:
--- NOTE | 2022-10-25 10:16 | HP.PTREVAL ---
Re-Evaluation Intro: Dr. Kelsie Munoz MD, It has been my pleasure to treat DENNISE GO over the last 9 visits for Lumbar Strain. Please see the progress note below for an update on the physical therapy plan of care! Subjective Subjective: Patient reports that he is much better than he was at his IE. His pain is almost gone but he still has some sciatic pain. He is going elk hunting and is worried about going up hills Objective Objective/Function: Posture: good throughout Gait: no deviation noted- good arm swing and trunk rotation HR/TR: able SLS: 30 without LOB Sensation: WNL in all planes Reflex: WNL to patellar ROM: Lumbar: WFL in all planes Strength: Core: fair, Hip: 5/5, Knee: 5/5, Ankle: 5/5. Palpation: not tender to touch Flex: HS: mod, Gastroc: mod, ITband: mod Special Test: Flexion: increases pain, Extn: decreases pain Plan Plan Plan: 10/25/22: Discharge to [facility] and return to MD for further evaluation Focus on core strength/stabilization - decrease radicular s/s (extension bias). Balance/Gait/Functional tests Balance/Special Test Scores Oswestry Low Back Score: 6 Goals Goals Goal 1:: Patient will be I with HEP and progression Goal Time Frame: 4-6 Weeks Goal Progress: Goal Met Goal 2:: Patient will maintain proper posture t/o tx session to demo increased core s/s Goal Time Frame: 4-6 Weeks Goal Progress: Goal Met Goal 3:: Patient will report no radicular s/s for 1 week Goal Time Frame: 4-6 Weeks Goal Progress: Progressing Goal 4:: Patient will report 80% improvement Goal Time Frame: 4-6 Weeks Goal Progress: Progressing Anticipated Interventions Anticipated Interventions Patient/Client Instruction: Educate patient on: Benefits of Fitness Program Therapeutic Exercise to Include: Strength training, Endurance training, Balance training, Coordination, Agility training, Body mechanics, Postural training, Flexibilty training, Gait and locomotor training, Neuromotor development, Passive ROM, Active ROM, Dynamic Lumbar Stabilization and Scapular Strength/Stabilization For the Purpose of:: To improve muscle performance and motor function TENS: Yes Thermo therapy (hot pack): Yes Ultrasound (thermal/non thermal): Yes Re-Evaluation Ending Re-evaluation ending: Please do not hesitate to contact me at [phone] by phone or if you have questions or concerns regarding this new plan of care! Sincerely, LAQUITA WatkinsT
== END 2022-10-25 19:00 | disposition home or self-care (01) ==
LOC: PT 09:00
PROVIDERS: PCP Family Medicine; Referring Provider Family Medicine; Visit Provider Family Medicine
DX: S39.012D Strain of muscle, fascia and tendon of lower back, subsequent encounter (principal)
CPT/HCPCS: 97110; 97162; 97164

== ENCOUNTER → 2023-04-08 | Outpatient (CLI) | payer BC, SELFPAY ==
--- NOTE | 2023-04-08 14:10 | STRESSREP_ITS ---
Stress Test Report Date: 04/08/2023 Procedure: Exercise tolerance test/imaging study Indications: Preoperative evaluation Consent: Per the patient Procedure: The patient exercised on a Tirso protocol for 8 minutes achieving a peak heart rate of 148 bpm (94% predicted maximal heart rate) with a peak blood pressure 164/68 mmHg and a peak MET capacity of 10.1 METs. The baseline ECG demonstrated normal sinus rhythm. The peak exercise ECG demonstrated no significant ischemic changes. EKG during recovery revealed no significant ischemic changes [There were no cardiac dysrhythmias pretest, during exercise, or recovery]. The functional capacity was considered excellent for age. There was [no complaint of chest discomfort during exercise or recovery]. The examination was discontinued secondary to hip pain. Impression: 1. Technically adequate (percent predicted maximal heart rate greater than 85%) exercise tolerance test 2. Stress test is negative for exercise-induced EKG changes of ischemia 3. The test test is negative for exercise-induced chest pain 4. Functional capacity is excellent for age 5. Nuclear images pending Myocardial perfusion imaging study: Technique: The patient was injected with 11.4 mCi of technetium 99m Cardiolite and subsequently rest SPECT Cardiolite nuclear imaging was obtained in the horizon socrates long, vertical long, and short axis views. The patient exercised on a Tirso protocol. Please see above for details. The patient was injected with 34.7 mCi of technetium 99m Cardiolite and subsequently stress SPECT Cardiolite nuclear imaging was obtained in the horizontal long, vertical long, and short axis views. A gated Cardiolite study at peak stress was obtained. Interpretation: Rest and stress SPECT Cardiolite nuclear imaging status post realignment, normalization, and attenuation correction, demonstrates no evidence of significant ischemia or infarction. The gated Cardiolite study demonstrates no significant regional wall motion abnormalities. The reported LVEF is 58%. Impression: 1. There is no evidence of significant ischemia or infarction. 2. The gated Cardiolite study reports an LVEF of 58%. This note was generated with [employer]ation software. It may contain incorrect words, spelling, and punctuation that were not noted in checking the note before signing.
== END | disposition home or self-care (01) ==
PROVIDERS: PCP Family Medicine; Referring Provider Nurse Practitioner Gerontology; Visit Provider Nurse Practitioner Gerontology
DX: Z01.818 Encounter for other preprocedural examination (principal); Z95.5 Presence of coronary angioplasty implant and graft
CPT/HCPCS: 78452; 93017; A9500

== ENCOUNTER 2023-04-22 10:43 | Day surgery (SDC) | payer BC, SELFPAY ==
--- NOTE | 2023-04-18 08:52 | EKG12_ITS ---
Test Reason : PRE-OP Blood Pressure : / mmHG Vent. Rate : 054 BPM Atrial Rate : 054 BPM P-R Int : 200 ms QRS Dur : 088 ms QT Int : 398 ms P-R-T Axes : 047 052 038 degrees QTc Int : 377 ms Sinus bradycardia Otherwise normal ECG Confirmed by ANGEL LAU, ERNESTO ([id number]), managing editor EUGENIO HALL ([id number]) on 04/19/2023 6:49:26 AM Referred By: Malik Grissom Confirmed By:ERNESTO ORTIZ MD
[2023-04-18 09:50] LABS: Hematocrit 44.1 % (40-54); Hemoglobin 14.4 g/dL (13.0-16.5); Mean Corp Hgb Conc 32.7 g/dL (32-36); Mean Corpuscular Hgb 31.4 pg (27.0-32.0); Mean Corpuscular Volume 96.3 fL (80-94); Mean Platelet Vol. 10.8 fl (6.2-12.0); Platelet Count 251 K/mm3 (150-450); RBC Distribution Width CV 13.1 % (11.6-14.6); RBC Distribution Width SD 45.8 fl (35.1-43.9); Red Blood Count 4.58 M/mm3 (4.6-6.2); White Blood Count 5.9 K/mm3 (4.4-11.0)
[2023-04-18 10:17] LABS: Anion Gap 1 (5-15); BUN 15 mg/dL (7-18); BUN/Creat Ratio 12.3 RATIO (10-20); Calcium,Total 9.2 mg/dL (8.5-10.1); Chloride 108 mmol/L (98-107); Creatinine, Serum 1.22 mg/dL (0.70-1.30); EST Glomerular Filtration Rate 63 mL/min (>60); Est Glom Filt Rate - Afr Amer 77 mL/min (>60); Glucose 87 mg/dL (74-106); Potassium 4.5 mmol/L (3.5-5.1); Sodium Level 138 mmol/L (136-145)
[2023-04-22] VITALS (10 sets, daily range): BP systolic 127–160; BP diastolic 76–86; PULSE 57–92; RESP 16–18; TEMP 36.6–37.2; O2SAT 94–100; BMI 25.0
[2023-04-22] MEDS: Lactated Ringers 1,000 ML 15 ML IV ×2 (11:10→18:06)
--- NOTE | 2023-04-22 11:48 | PCM.HP.BLA ---
History and Physical Date of Admission: 04/22/23 Visit Reasons: Hernia Chief Complaint: right inguinal hernia Cardiology Manager Required: No Is patient in pain?: No Allergies No Known Allergies Allergy (Verified 04/01/23 14:07) Medications aspirin 81 mg tablet,delayed release 81 mg PO DAILY@0800 #90 tabs 07/16/19 [Rx Confirmed 04/01/23] clopidogrel 75 mg tablet 75 mg PO DAILY #90 tabs 07/17/22 [Rx Confirmed 04/01/23] metoprolol tartrate 25 mg tablet 12.5 mg (1/2 x 25 mg) PO BID #90 tabs 07/17/22 [Rx Confirmed 04/01/23] [facility] Medical History Atherosclerotic heart disease of [place] coronary artery without angina pectoris Denies previous medical history History of non-ST elevation myocardial infarction (NSTEMI) HLD (hyperlipidemia) NSTEMI (non-ST elevated myocardial infarction) Old myocardial infarction Presence of stent in coronary artery (~08/31/18) Surgical History (Updated 04/01/23 @ 14:12 by Saba Villa LPN) History of inguinal hernia repair Presence of coronary angioplasty implant and graft (~08/31/18) Family History Mother Carotid artery disease Hypertension Thyroid disorder CAD (coronary artery disease)Grandfather Heart diseaseGrandfather Heart disease Social History (Updated 04/01/23 @ 14:06 by Saba Villa LPN) Smoking Status: Never smoker alcohol intake: never substance use type: does not use HPI HPI HPI: 62-year-old gentleman is referred by Dr. Kelsie Munoz for surgical consultation regarding potential hernia and written compromise surgical consult and recommendations will be returned to her. The patient's been having ongoing symptoms for a year. There is felt to be a reducible right inguinal hernia. It is of note that he does have atherosclerotic cardiovascular disease and medications include clopidogrel and atorvastatin and low-dose aspirin in addition to his metoprolol. He has had carotid artery stenting and has had a previous left inguinal hernia repair in 1993. The patient instructs me that he had a right inguinal hernia detected in 2016 with a [facility] license medical review. Recently though its become much more symptomatic. He states that he remotely had a left inguinal hernia repair with no mesh. He then developed a recurrence and had to have a redo repair done with mesh. He thinks that was done approximately 10 years ago. He is quite active. He lifts weights and runs on a treadmill and plays pickle ball. With no antecedent symptoms in 2019 he had a myocardial infarction. He had urgent cardiac catheterization locally and 2 coronary stents placed. He does have hypercholesterolemia. He is continue to follow-up with the [facility]. He has now had his clopidogrel decrease to every other day. Years ago he would chew a small amount of tobacco. Currently he is tobacco free. He denies cigarette use. Family history notable for cardiac disease in his mother. His primary reason for presentation today is a progressively symptomatic right inguinal hernia. [facility] Musculoskeletal: Yes back problems Cardio Cardiovascular: Yes heart attack and heart stent [place] Hematologic: Yes blood thinners Exam Const General: cooperative, comfortable and no acute distress HENMT Head: normal to inspection Eyes General: appearance normal, both eyes and all related structures Neck Neck: normal visual inspection Chest Chest palpation & inspection: normal inspection of the chest Resp Effort & Inspection: normal respiratory effort Auscultation: clear to auscultation bilaterally Cardio Rate: regular rate Rhythm: regular rhythm GI Palpation: soft and no hepatosplenomegaly Other: Testicles are descended. Well-healed transverse incision left groin. Appears to be solid intact nontender. Left testicle mildly atrophic. Right groin obvious inguinal hernia detected. Testicle slightly atrophic. Hernia appears to be mostly reducible when supine. Skin General: no rashes or lesions noted Neuro General: patient alert, patient awake and patient oriented x3 Extrem General: no calf tenderness Psych Appearance: grossly normal Assessment and Plan Assessment and Plan (1) Inguinal hernia of right side without obstruction or gangrene: Status: Acute Plan: 62-year-old gentleman with a progressively enlarging symptomatic right inguinal hernia. Currently it is mostly reducible. He has had a previous myocardial infarction 2019 with 2 coronary stents. He is currently managed by ANIKET Sesay and the patient is being weaned from his clopidogrel therapy is now on an every other day. He denies any exercise-induced cardiac symptoms. I propose for him a laparoscopic right inguinal hernia repair with mesh due to his ongoing active lifestyle. We have discussed technique, benefit, risk, alternatives. He is well aware of the potential risk of recurrence and the need for him to allow for postoperative resolution. We will seek risk assessment in holding the patient's clopidogrel therapy 7 days preoperatively to allow for the procedure. The patient tells me that there is already been consideration for possibly ceasing his clopidogrel altogether. He has had an opportunity to ask and have questions answered. He is interested in pursuing definitive treatment in the near future. I appreciate the opportunity of assisting with the surgical care Copy: Dr Kelsie Munoz and Jeff Kent, BRITTANY-C Malik Grissom M.D., F.A.C.S. I have examined the patient and the H&P has been reviewed. There are no clinical changes since date of exam. Malik Grissom M.D., F.A.C.S.
--- NOTE | 2023-04-22 12:00 | HERN_PTH ---
PATHOLOGY RESULTS PATIENT: DENNISE GO LOC: [facility] – [place] U#:[id number] AGE/SX: 62/M ROOM: RE04/22/[address]: Dr. Malik Grissom MD : [id number] BED: DIS: 04/22/2023 SPEC #: [id number] RECD: 04/23/23 08:19 STATUS: MAGDALENE QUILES #: [id number] BOB: 04/22/23 12:[address]: Malik Grissom DEPT: SURGICAL PATHOLOGY RECD BY: Tari Avalos ENTERED: 04/23/23 08:19 SP TYPE: Hernia OTHR DR: Dr. Kelsie Munoz MD Tissues: HERNIA Procedures: Surgery Specimen Level II HEADER OPERATION: Laparoscopic inguinal hernia repair with mesh, direct umbilical PRE-OP DIAGNOSIS: Right inguinal hernia TISSUE SUBMITTED: Umbilical hernia sac and contents MICROSCOPIC DIAGNOSIS Umbilical hernia sac and contents: A piece of adipose tissue, clinically hernia sac and contents. SJ:rg 04/24/2023 MICROSCOPIC DESCRIPTION Slides are reviewed. GROSS DESCRIPTION Received in fixative is one container labeled with the patient's name and designated umbilical hernia sac and contents. The specimen consists of a piece of yellow adipose tissue measuring 2.5 x 1.5 x 1.0 cm. Sections reveal yellow adipose cut surfaces without area of hemorrhage, necrosis or cystic degeneration. The entire specimen is submitted in one cassette. / AXEL:mo 04/24/2023 TC:5 CPT: 51778
[2023-04-22] MEDS: Cefazolin 2 GM in 0.9% Normal Saline (100mL Bag) 100 ML IV (12:03)
--- NOTE | 2023-04-22 12:06 | DCINST_ITS ---
Discharge Instructions Procedure General Surgery Diet Discharge Diet: Light diet - advance as tolerated (if you have questions about your diet instructions, please talk to you doctor.) Activity Discharge Activity: May Not Drive (for 3-5 days or while taking narcotic pain medicine.) May shower in (days): 1 Lifting Restrictions: 10 pounds Dressing / Incision Call your doctor if your incision/area has: Continuous Slow Oozing, Sudden Increased Bleeding, Increased Pain/ Swelling, Increased Redness and Foul Smelling Discharge Call your doctor if you observe: Fever of 101 or Higher Suture Line Care: Avoid Pulling/Pushing and Avoid Pinching/Bending Additional Dressing/Incision Instructions:: Change or remove dressing in 4 days. Leave steri-strips in place for 1 week. Follow Up Care Please Follow Up With: Malik Grissom MD When: Call [phone] to make an appointment to be seen in about 10 days. Test Results: Test results from this visit will be discussed in further detail at your follow- up appointment, if applicable. Discharge Plan Admission Attending Provider: aMlik Grissom Primary Care Provider: Kelsie Munoz Discharge Orders/Prescriptions Prescriptions: No Action aspirin 81 mg tablet,delayed release (DR/EC) 81 mg PO DAILY@0800 Qty: 90 3RF clopidogrel 75 mg tablet 75 mg PO DAILY Qty: 90 3RF metoprolol tartrate 25 mg tablet 12.5 mg PO BID Qty: 90 3RF Referrals / Follow Up: Kelsie Munoz MD [Primary Care Provider] - Disposition Disposition (needs filled in before D/C Order can be placed): Home, Self Care
[2023-04-22] MEDS: Bupivacaine Mpf 0.5% 30 ML VIAL (13:11)
--- NOTE | 2023-04-22 13:11 | PCM.OPRPT ---
Report of Operation Date of Procedure: 04/22/23 Pre-Operative Diagnosis: Symptomatic right inguinal hernia Umbilical hernia Post-Operative Diagnosis: Symptomatic direct right inguinal hernia Umbilical hernia Surgery/Procedure Performed:: Laparoscopic right inguinal herniorrhaphy with Bard 3D max large mesh, lot [id number], reference [id number], expiry date 12/22/2026, secure strap Lot [id number] expiry date 11/19 Sutured umbilical herniorrhaphy Description of Surgical Findings:: Timeout informed consent was obtained. 62-year-old gentleman was taken to the op room placed on the table underwent general anesthesia Ancef 2 g were given intravenously the abdomen sterilely prepped and draped patient was noted to have an umbilical hernia and this was noted preoperatively a curvilinear incision was made in the inferior portion of the umbilicus sharp and blunt dissection was used to identify the preperitoneal fatty tissue clot within that umbilical hernia electrocautery was used to amputate it it was submitted as specimen holding sutures of 0 Vicryl placed vaginal and inserted saline drain drop test performed the abdomen was insufflated with CO2 to a pressure of 10 mmHg pressure 10 mm trocar inserted 10 mm laparoscope inserted no evidence of trocar injuries under direct visitation 5 mm ports were placed on the right and left lower quadrants a right ilioinguinal nerve block was performed with Marcaine under laparoscopic visualization the peritoneum superior lateral to the internal ring was incised carried medially the peritoneum was then carefully dissected free. A direct sac was fully and completely dissected free as the direct space femoral area and indirect space were completely freed. A Bard 3D max large mesh was placed so as to cover the defect area. It nicely covered the direct space indirect area and femoral area. It was secured laterally and superiorly and medially with secure strap. Very good positioning was felt to have been achieved. The peritoneum was then approximated to itself using secure strap. It is of note that throughout the procedure hemostasis was required Hem-o-roamrio clips were used. Hemostasis was nicely intact. Trocars were removed. The umbilical hernia was closed transversely with simple sutures of 0 Nurolon. Skin edges were approximated opted for Monocryl subdermal stitches. Steri-Strips Telfa OpSite dressings applied. Sponge and instrument and needle counts were reported to the surgeon to be correct. Specimen umbilical hernia sac and contents. Drains none. Blood loss minimal. The patient was taken the recovery area in satisfied condition without apparent complication Malik Grissom M.D., F.A.C.S. Surgeon: Malik Grissom Type of Anesthesia: General and Local Anesthesiologist: Nilda Rothman
[2023-04-22] MEDS: Acetaminophen 325 MG Tablet 650 MG PO (18:33)
== END 2023-04-22 19:03 | disposition home or self-care (01) ==
LOC: SDC 10:43 → AC 10:44
PROVIDERS: PCP Family Medicine; Referring Provider Surgery; Visit Provider Surgery
PROC: (CPT 49650; principal; 2023-04-22 11:40)
DX: K40.90 Unilateral inguinal hernia, without obstruction or gangrene, not specified as recurrent (principal); Z95.5 Presence of coronary angioplasty implant and graft; I25.10 Atherosclerotic heart disease of native coronary artery without angina pectoris; K42.9 Umbilical hernia without obstruction or gangrene; E78.5 Hyperlipidemia, unspecified; Z79.82 Long term (current) use of aspirin; I25.2 Old myocardial infarction; Z87.19 Personal history of other diseases of the digestive system
CPT/HCPCS: 49650; 00840; 36415; 80048; 85027; 88302; 93005; J7120; C1781; J2405

== ENCOUNTER → 2023-10-10 | Outpatient (CLI) | payer MEDICARE, OTHER, SELFPAY ==
[2023-10-10 07:45] LABS: AST(SGOT) 15 U/L (15-37); Alanine Aminotransfer ALT/SGPT 21 U/L (16-61); Albumin, Serum 3.6 g/dL (3.2-5.0); Alkaline Phosphatase 49 U/L (45-117); Bilirubin, Direct 0.17 mg/dL (0.00-0.30); Cholesterol 203 mg/dL (200); Globulin 3.4 g/dL (2.2-4.2); High Density Lipoprotein 51 mg/dL; Triglycerides 72 mg/dL; Very Low Density Lipoprotein 14 mg/dL (5-40)
== END | disposition home or self-care (01) ==
PROVIDERS: PCP Family Medicine; Referring Provider Nurse Practitioner Family; Visit Provider Nurse Practitioner Family
DX: E78.00 Pure hypercholesterolemia, unspecified (principal)
CPT/HCPCS: 36415; 80061; 80076

== ENCOUNTER → 2024-03-11 | Outpatient (CLI) | payer MEDICARE, OTHER, SELFPAY ==
[2024-03-11 08:36] LABS: AST(SGOT) 27 U/L (15-37); Alanine Aminotransfer ALT/SGPT 39 U/L (16-61); Albumin, Serum 3.7 g/dL (3.2-5.0); Alkaline Phosphatase 58 U/L (45-117); Bilirubin, Direct 0.19 mg/dL (0.00-0.30); Cholesterol 145 mg/dL (200); Globulin 3.6 g/dL (2.2-4.2); High Density Lipoprotein 54 mg/dL; Protein, Total 7.3 g/dL (6.4-8.2); Triglycerides 67 mg/dL; Very Low Density Lipoprotein 13 mg/dL (5-40)
== END | disposition home or self-care (01) ==
LOC: LAB 07:54
PROVIDERS: PCP Family Medicine; Referring Provider Nurse Practitioner Family; Visit Provider Nurse Practitioner Family
DX: I25.10 Atherosclerotic heart disease of native coronary artery without angina pectoris (principal); Z95.5 Presence of coronary angioplasty implant and graft; E78.5 Hyperlipidemia, unspecified
CPT/HCPCS: 36415; 80061; 80076

== ENCOUNTER → 2024-08-17 | Outpatient (CLI) | payer MEDICARE, OTHER, SELFPAY ==
--- OUTSIDE RECORDS SUMMARY | 2024-08-17 06:56 | XMS RPT_ITS | CCD ---
Author Organization [facility]ini[facility]pr Care Team Providers Care Stone Splitter Name Role Phone Dr. Kelsie Munoz Primary Care Provider Dr. Kelsie Munoz Referring Provider Dr. Derek Allen Attending Provider Dr. Kelsie Munoz Primary Care Provider Dr. Kelsie Munoz Referring Provider Donte RESOURCE ENGINEER, RESOURCE ENGINEER-C Jeff Delvalle Attending Provider [phone] Kelsie Munoz Primary Care Provider Dr. Kelsie Munoz Referring Provider Dr. Malik Grissom Attending Provider Jerod SOTO, BRITTANY-Alicia Velez Referring Provider Jerod SOTO, BRITTANY-Alicia Velez Other Provider [phone] Adrianne Guillen Attending Provider Jerod SOTO, BRITTANY-Alicia Velez Attending Provider Tammy, Kelsie S Primary Care Unavailable Roof RESOURCE ENGINEERJeff Attending Unavailable Roof RESOURCE ENGINEERJeff Referring Unavailable Jolliff, Kelsie S Primary Care Unavailable Roof RESOURCE ENGINEERJeff Attending Unavailable Jeff Kent NP Referring Unavailable Malik Grissom Referring Unavailable Jonikiiff, Kelsie S Primary Care Unavailable Malik Grissom Attending Unavailable Jolliff, Kelsie S Primary Care Unavailable Jolliff, Kelsie S Referring Unavailable Joy Alonzo Attending Unavailable Jolliff, Kelsie S Primary Care Unavailable Jolliff, Kelsie S Referring Unavailable Roof RESOURCE ENGINEER, Jeff Delvalle Attending Unavailable Adrianne Guillen Attending Unavailabl e Jerod SOTO, Rosie Consulting Unavailable Rosie Newsome NP Referring Unavailable Jonikiiff, Kelsie S Primary Care Unavailable Malik Grissom Referring Unavailable Tammy, Kelsie S Primary Care Unavailable Malik Grissom Consulting Unavailable Malik Grissom Attending Unavailable Rosie Newsome NP Attending Unavailable Carlitosiff, Kelsie S Primary Care Unavailable Malik Grissom Referring Unavailable Jolliff, Kelsie S Primary Care Unavailable [place] Attending Unavailable Rosie Newsome NP Attending Unavailable Rosie Newsome NP Referring Unavailable Joamanda, Kelsie S Primary Care Unavailable Medications Completed/Discontinued Medications Medication Drug Class(es) Dates Sig (Normalized) Sig (Original) aspirin 81 mg delayed release oral tablet (15 sources) Platelet Aggregation Inhibitor, Nonsteroidal Anti-inflammatory Drug Start: 09-01-2018 End: 07-16-2019 take 81 mg by mouth once daily Aspirin Discontinued 81 MG PO DAILY@0800 90 September 05, 2018 1:55pm July 16, 2019 2:24pm atorvastatin 80 mg oral tablet (20 sources) HMG-CoA Reductase Inhibitor Start: 09-01-2018 End: 09-20-2022 take 80 mg by mouth at bedtime Atorvastatin Discontinued 80 MG PO AT BEDTIME July 17, 2022 9:04am September 20, 2022 8:34am clopidogrel 75 mg oral tablet (20 sources) P2Y12 Platelet Inhibitor Start: 09-01-2018 End: 07-17-2022 take 75 mg by mouth once daily Clopidogrel Discontinued 75 MG PO DAILY July 13, 2021 9:51am July 17, 2022 9:05am metoprolol tartrate 25 mg oral tablet (20 sources) beta-Adrenergic Zac Start: 09-01-2018 End: 07-17-2022 take 12.5 mg by mouth twice daily Metoprolol Tartrate Discontinued 12.5 MG PO TWICE A DAY July 13, 2021 9:51am July 17, 2022 9:05am Problems Active Problems Problem Classification Problem Date Documented Da te Episodic/Chronic Coronary atherosclerosis and other heart disease (12 sources) History of non-ST segment elevation myocardial infarction; Translations: [Old myocardial infarction] Onset: 04-02-2024 Chronic Disorders of lipid metabolism (10 sources) Hyperlipidemia; Translations: [Hyperlipidemia, unspecified] Onset: 09-25-2023 Chronic Past or Other Problems Problem Classification Problem Date Documented Da te Episodic/Chronic Abdominal hernia (5 sources) Right inguinal hernia ; Translations: [Unilateral inguinal hernia, without obstruction or gangrene, not specified as recurrent] Onset: 04-30-2023 04-01-2023 Episodic Coronary atherosclerosis and other heart disease (10 sources) Stented coronary artery; Translations: [Presence of coronary angioplasty implant and graft] Onset: 08-25-2018 Episodic Unclassified (5 sources) Denies previous medical history 09-14-2021 Results Test Name Value Interpretation Reference Range Facility Lipid Profileon 03-11-2024 Cholesterol [Mass/Vol] 145 mg/dL Normal 200 [facility] Comment on above: Result Comment: <200 mg/dL Desirable 200-240 mg/dL Borderline >240 mg/dL High Risk Performed By: #### L 500.3400, L500.4100 #### [facility] [address] [place], [address] Cholesterol in HDL [Mass/Vol] 54 mg/dL Normal [facility] Comment on above: Result Comment: The drugs N-Acetylcysteine and Metamizole may falsely depress this assay. Reference Range HDL <40 mg/dL Low HDL Cholesterol HDL >or= 60 mg/dL High HDL Cholesterol Performed By: #### L 500.3400, L500.4100 #### [facility] [address] [place], [address] Cholesterol in LDL [Mass/Vol] 78 mg/dL Normal 0-130 [facility] Comment on above: Performed By: #### L 500.3400, L500.4100 #### [facility] [address] [place], [address] Cholesterol in VLDL [Mass/Vol] 13 mg/dL Normal 5-40 [facility] Comment on above: Performed By: #### L 500.3400, L500.4100 #### [facility] [address] [place], [address] Triglyceride [Mass/Vol] 67 mg/dL Normal [facility] Comment on above: Result Comment: The drugs N-Acetylcysteine and Metamizole may falsely depress this assay. Serum Triglycerides Reference Interval Normal <150 mg/dL Borderline high 150 - 199 mg/dL High 200 - 499 mg/dL Very High > or = 500 mg/dL Performed By: #### L 500.3400, L500.4100 #### [facility] [address] [place], [address] Liver Profileon 03-11-2024 Albumin [Mass/Vol] 3.7 g/dL Normal 3.2-5.0 [facility] Comment on above: Performed By: #### L 500.3400, L500.4100 #### [facility] [address] [place], [address] ALK P 58 U/L Normal 45-117 [facility] Comment on above: Performed By: #### L 500.3400, L500.4100 #### [facility] [address] [place], [address] ALT [Catalytic activity/Vol] 39 U/L Normal 16-61 [facility] Comment on above: Performed By: #### L 500.3400, L500.4100 #### [facility] [address] [place], [address] AST [Catalytic activity/Vol] 27 U/L Normal 15-37 [facility] Comment on above: Performed By: #### L 500.3400, L500.4100 #### [facility] [address] [place], [address] Bilirubin [Mass/Vol] 0.80 mg/dL Normal 0.20-1.00 [facility] Comment on above: Result Comment: For patients on eltrombopag therapy, use of Dimension Stilwell TBIL is not recommended. Performed By: #### L 500.3400, L500.4100 #### [facility] [address] [place], [address] Bilirubin.direct [Mass/Vol] 0.19 mg/dL Normal 0.00-0.30 [facility] Comment on above: Performed By: #### L 500.3400, L500.4100 #### [facility] [address] [place], [address] Globulin (S) [Mass/Vol] 3.6 g/dL Normal 2.2-4.2 [facility] Comment on above: Performed By: #### L 500.3400, L500.4100 #### [facility] [address] [place], [address] T PROT 7.3 g/dL Normal 6.4-8.2 [facility] Comment on above: Performed By: #### L 500.3400, L500.4100 #### [facility] [address] [place], [address] Lipid Profileon 10-10-2023 Cholesterol [Mass/Vol] 203 mg/dL High 200 [facility] Comment on above: Result Comment: <200 mg/dL Desirable 200-240 mg/dL Borderline >240 mg/dL High Risk Performed By: #### L 500.3400, L500.4100 #### [facility] [address] [place], [address] Cholesterol in HDL [Mass/Vol] 51 mg/dL Normal [facility] Comment on above: Result Comment: The drugs N-Acetylcysteine and Metamizole may falsely depress this assay. Reference Range HDL <40 mg/dL Low HDL Cholesterol HDL >or= 60 mg/dL High HDL Cholesterol Performed By: #### L 500.3400, L500.4100 #### [facility] [address] [place], [address] Cholesterol in LDL [Mass/Vol] 138 mg/dL High 0-130 [facility] Comment on above: Performed By: #### L 500.3400, L500.4100 #### [facility] [address] [place], [address] Cholesterol in VLDL [Mass/Vol] 14 mg/dL Normal 5-40 [facility] Comment on above: Performed By: #### L 500.3400, L500.4100 #### [facility] [address] [place], [address] Triglyceride [Mass/Vol] 72 mg/dL Normal [facility] Comment on above: Result Comment: The drugs N-Acetylcysteine and Metamizole may falsely depress this assay. Serum Triglycerides Reference Interval Normal <150 mg/dL Borderline high 150 - 199 mg/dL High 200 - 499 mg/dL Very High > or = 500 mg/dL Performed By: #### L 500.3400, L500.4100 #### [facility] [address] [place], [address] Liver Profileon 10-10-2023 Albumin [Mass/Vol] 3.6 g/dL Normal 3.2-5.0 [facility] Comment on above: Performed By: #### L 500.3400, L500.4100 #### [facility] [address] [place], [address] ALK P 49 U/L Normal 45-117 [facility] Comment on above: Performed By: #### L 500.3400, L500.4100 #### [facility] [address] [place], [address] ALT [Catalytic activity/Vol] 21 U/L Normal 16-61 [facility] Comment on above: Performed By: #### L 500.3400, L500.4100 #### [facility] [address] [place], [address] AST [Catalytic activity/Vol] 15 U/L Normal 15-37 [facility] Comment on above: Performed By: #### L 500.3400, L500.4100 #### [facility] [address] [place], [address] Bilirubin [Mass/Vol] 0.70 mg/dL Normal 0.20-1.00 [facility] Comment on above: Result Comment: For patients on eltrombopag therapy, use of Dimension Stilwell TBIL is not recommended. Performed By: #### L 500.3400, L500.4100 #### [facility] [address] [place], [address] Bilirubin.direct [Mass/Vol] 0.17 mg/dL Normal 0.00-0.30 [facility] Comment on above: Performed By: #### L 500.3400, L500.4100 #### [facility] [address] [place], [address] Globulin (S) [Mass/Vol] 3.4 g/dL Normal 2.2-4.2 [facility] Comment on above: Performed By: #### L 500.3400, L500.4100 #### [facility] [address] [place], [address] T PROT 7.0 g/dL Normal 6.4-8.2 [facility] Comment on above: Performed By: #### L 500.3400, L500.4100 #### [facility] [address] [place], [address] Cardiology Visit Reporton Cardiology Visit Report [facility] [address] [place] [address] OFFICE VISIT Date of Service: 09/18/23 MR#: [id number] Acct: [id number] Name: DENNISE GO Rep #: [id number] : 1960 Provider: ANIKET romero Age/Sex: 63/M Location[place] [facility] [place] Status: Signed HPI [facility] History of Present Illness Details: This is a 63-year-old male who presents to the office today for a cardiovascular outpatient follow- up with a history of non-ST elevated myocardial infarction in August 2018 status post PTCA/ONEIL to proximal/mid LAD and PTCA with balloon only to ostium of diagonal 1 and hyperlipidemia. He denies chest, arm, jaw, or neck discomfort. He denies palpitations. He denies bilateral lower extremity edema. He denies claudication. He denies shortness of breath with activity, shortness of breath at rest, orthopnea, or PND. He denies chronic cough. He denies significant, sudden weight gain. He denies lightheadedness, dizziness, near-syncope, or syncope. He denies blood in urine, blood in stool, or epistaxis. He denies fever with chills. He denies myalgia. He denies fatigue. His exercise level has remained stable. Intake Vital Signs 09/20/22 08:55 04/22/23 11:03 09/18/23 08:53 Height 5 ft 10 in 5 ft 10 in 5 ft 10 in Weight: 177 lb BMI 25.4 BP 118/79 Blood Pressure Location Lt brachial Position Sitting Respiration 16 Pulse 57 L Pulse Source NIBP Intake Visit Reasons: 1 Y FU Staff Occupational Therapist Required: No Is patient in pain?: No Allergies No Known Allergies Allergy (Verified 09/18/23 09:04) Medications ???Medication ???Instructions ???Recorded ???Confirmed ???Type aspirin 81 mg tablet,delayed 81 mg PO DAILY@0800 #90 tabs 07/16/19 09/18/23 Rx release metoprolol tartrate 25 mg tablet 12.5 mg (1/2 x 25 mg) PO BID #90 07/18/23 09/18/23 Rx tabs Ejection fraction %: 60 Have you fallen in the past year?: No PFSH Medical History Wears glasses Alcohol use Arthritis Back pain Injury of head and neck Non-smoker History of echocardiogram History of stress test Cardiology follow-up encounter History of non-ST elevation myocardial infarction (NSTEMI) Presence of stent in coronary artery ( 08/31/18) Old myocardial infarction Atherosclerotic heart disease of ramona coronary artery without angina pectoris HLD (hyperlipidemia) Denies previous medical history NSTEMI (non-ST elevated myocardial infarction) Surgical History Status post umbilical hernia repair, follow-up exam S/P right inguinal hernia repair History of cardiac catheterization Hx of colonoscopy History of bunionectomy of right great toe History of inguinal hernia repair Presence of coronary angioplasty implant and graft ( 08/31/18) Family History Mother Carotid artery disease Hypertension Thyroid disorder CAD (coronary artery disease) Grandfather Heart disease Grandfather Heart disease Social History (Updated 09/18/23 @ 09:09 by Little Quezada) Smoking Status: Never smoker alcohol intake: current alcohol intake frequency: a few times a week substance use type: does not use caffeine: Yes Type: coffee Number of servings: 2 ROS Const Const: Negative for fatigue, weakness, headache(s), frequent falls, difficulty sleeping or excessive sweating Eyes Eyes: Negative for loss of peripheral vision, transient loss of vision, blurry vision, double vision or tunnel vision ENT ENT: Negative for headache(s), dizziness, Nosebleed/epistaxis or balance problems Cardio Chest Pain: No Palpitations: No Edema: None Muscle aches with walking: None Resp Respiratory: Negative for SOB with activity, SOB at rest, SOB orthopnea SOB lying down, Cough or paroxysmal nocturnal dyspnea GI GI: Negative nausea, vomiting, heartburn or black,tarry stools : Negative for hematuria Musc Musc: Positive for joint pain (Hips and lower back due to injury last year); Negative for muscle aches/ myalgia, muscle weakness or balance problems Skin Skin: Negative non-healing lesions, rash or unusual bruising Neuro Neuro: Negative for dizziness, lightheadedness, near syncope, syncope, frequent falls, headache(s), weakness, blurry vision, double vision or lack of coordination [place] Hematologic/Lymphati c: Negative for easy bleeding or easy bruising Endo Endo: Negative for fatigue, excessive sweating or increased thirst/drinking Psych Psych: Negative for anxiety or depression Allergy Allergy/Immunology: Negative for hives and Negative for rash Cardiology Exam Const Appearance: cooperative, healthy appearing, comfortable and no acute distress Nutritional Appearance: average body habitus and well nourish (more content not included)... Normal [facility] Surgery Visit Reporton 05-01 Surgery Visit Report [facility] [address] [place] [address] OFFICE VISIT Date of Service: 05/02/23 MR#: [id number] Acct: [id number] Name: DENNISE GO Rep #: [id number] : 1960 Provider: JEREMIAS siddiqui Age/Sex: 62/M Location: [facility] Status: Signed Intake Vital Signs 04/22/23 11:03 Height 5 ft 10 in Intake Visit Reasons: HERNIA 04-22 Chief Complaint: right inguinal hernia Is patient in pain?: No Allergies No Known Allergies Allergy (Verified 05/02/23 13:23) Medications aspirin 81 mg tablet,delayed release 81 mg PO DAILY@0800 #90 tabs 07/16/19 [Rx Confirmed 04/22/23] clopidogrel 75 mg tablet 75 mg PO DAILY #90 tabs 07/17/22 [Rx Confirmed 04/16/23] metoprolol tartrate 25 mg tablet 12.5 mg (1/2 x 25 mg) PO BID #90 tabs 07/17/22 [Rx Confirmed 04/22/23] Subjective Details: Patient is a 62 y/o M I am following s/p laparoscopic right inguinal hernia repair with mesh and simple umbilical hernia repair by Dr. Grissom on 04/22/23. Patient tolerated the procedure well. Patient notes minimal amount of right groin discomfort. He denies nausea, vomiting, fever, chills. He notes appetite and bowel habits have returned to normal. Objective Details: Abdomen- incisions c/d/i. No erythema or infection noted. No recurrent hernia in the right groin. Coding Level of Care Code Global Post Op Diagnoses Status post umbilical hernia repair, follow-up exam Z09 S/P right inguinal hernia repair Z98.890; Z87.19 [facility] Medical History (Updated 04/16/23 @ 11:19 by Edelmira Araujo) Alcohol use Arthritis Atherosclerotic heart disease of ramona coronary artery without angina pectoris Back pain Cardiology follow-up encounter Denies previous medical history History of echocardiogram History of non-ST elevation myocardial infarction (NSTEMI) History of stress test HLD (hyperlipidemia) Injury of head and neck Non-smoker NSTEMI (non-ST elevated myocardial infarction) Old myocardial infarction Presence of stent in coronary artery ( 08/31/18) Wears glasses Surgical History (Updated 05/02/23 @ 14:32 by Joy VELOZ PA-C) History of bunionectomy of right great toe History of cardiac catheterization History of inguinal hernia repair Hx of colonoscopy Presence of coronary angioplasty implant and graft ( 08/31/18) Family History Mother Carotid artery disease Hypertension Thyroid disorder CAD (coronary artery disease) Grandfather Heart disease Grandfather Heart disease Social History (Updated 04/01/23 @ 14:06 by Saba Villa LPN) Smoking Status: Never smoker alcohol intake: never substance use type: does not use Assessment and Plan (No Qualifiers) Assessment and Plan (1) Status post umbilical hernia repair, follow-up exam: Status: Acute (2) S/P right inguinal hernia repair: Status: Acute Plan Recommend no lifting greater than 20 pounds for 6 additional weeks Follow-up as needed 05/02/23 1433 Date Joy VELOZ PA-C Cosigner Signature: Date (if applicable) CC: Dr. Kelsie Munoz MD [facility] Discharge Instructionon 03-29 Discharge Instruction [facility] Medical Records Department [address] [place] [address] Instructions for Home/Discharge Instructions 04/22/23 1206 MR#: [id number] Acct: [id number] Name: DENNISE GO Rep #: [id number] : 1960 62 From: Malik Grissom MD PCP: Dr. Kelsie Munoz MD [place] [facility] [place] Procedure General Surgery Diet Discharge Diet: Light diet - advance as tolerated (if you have questions about your diet instructions, please talk to you doctor.) Activity Discharge Activity: May Not Drive (for 3-5 days or while taking narcotic pain medicine.) May shower in (days): 1 Lifting Restrictions: 10 pounds Dressing / Incision Call your doctor if your incision/area has: Continuous Slow Oozing, Sudden Increased Bleeding, Increased Pain/ Swelling, Increased Redness and Foul Smelling Discharge Call your doctor if you observe: Fever of 101 or Higher Suture Line Care: Avoid Pulling/Pushing and Avoid Pinching/Bending Additional Dressing/Incision Instructions:: Change or remove dressing in 4 days. Leave steri-strips in place for 1 week. Follow Up Care Please Follow Up With: Malik Grissom MD When: Call [phone] to make an appointment to be seen in about 10 days. Test Results: Test results from this visit will be discussed in further detail at your follow-up appointment, if applicable. Discharge Plan Admission Attending Provider: Malik Grissom Primary Care Provider: Kelsie Munoz Discharge Orders/Prescriptions Prescriptions: No Action aspirin 81 mg tablet,delayed release (DR/EC) 81 mg PO DAILY@0800 Qty: 90 3RF clopidogrel 75 mg tablet 75 mg PO DAILY Qty: 90 3RF metoprolol tartrate 25 mg tablet 12.5 mg PO BID Qty: 90 3RF Referrals / Follow Up: Kelsie Munoz MD [Primary Care Provider] - Disposition Disposition (needs filled in before D/C Order can be placed): Home, Self Care 04/22/23 1401 Malik Grissom MD CC: Dr. Kelsie Munoz MD Signed Normal [facility] Operative Reporton 4 Operative Report [facility] Medical Records Department [address] [place] [address] Operative Report 04/22/23 1311 MR#: [id number] Acct: [id number] Name: DENNISE GO Rep #: [id number] : 1960 62 From: Malik Grissom MD PCP: Dr. Kelsie Munoz MD Status:[facility] Location: [place] [address] Report of Operation Date of Procedure: 04/22/23 Pre-Operative Diagnosis: Symptomatic right inguinal hernia Umbilical hernia Post-Operative Diagnosis: Symptomatic direct right inguinal hernia Umbilical hernia Surgery/Procedure Performed:: Laparoscopic right inguinal herniorrhaphy with Bard 3D max large mesh, lot [id number], reference [id number], expiry date 12/22/2026, secure strap Lot [id number] expiry date 11/19 Sutured umbilical herniorrhaphy Description of Surgical Findings:: Timeout informed consent was obtained. 62-year-old gentleman was taken to the op room placed on the table underwent general anesthesia Ancef 2 g were given intravenously the abdomen sterilely prepped and draped patient was noted to have an umbilical hernia and this was noted preoperatively a curvilinear incision was made in the inferior portion of the umbilicus sharp and blunt dissection was used to identify the preperitoneal fatty tissue clot within that umbilical hernia electrocautery was used to amputate it it was submitted as specimen holding sutures of 0 Vicryl placed vaginal and inserted saline drain drop test performed the abdomen was insufflated with CO2 to a pressure of 10 mmHg pressure 10 mm trocar inserted 10 mm laparoscope inserted no evidence of trocar injuries under direct visitation 5 mm ports were placed on the right and left lower quadrants a right ilioinguinal nerve block was performed with Marcaine under laparoscopic visualization the peritoneum superior lateral to the internal ring was incised carried medially the peritoneum was then carefully dissected free. A direct sac was fully and completely dissected free as the direct space femoral area and indirect space were completely freed. A Bard 3D max large mesh was placed so as to cover the defect area. It nicely covered the direct space indirect area and femoral area. It was secured laterally and superiorly and medially with secure strap. Very good positioning was felt to have been achieved. The peritoneum was then approximated to itself using secure strap. It is of note that throughout the procedure hemostasis was required Hem-o-romario clips were used. Hemostasis was nicely intact. Trocars were removed. The umbilical hernia was closed transversely with simple sutures of 0 Nurolon. Skin edges were approximated opted for Monocryl subdermal stitches. Steri-Strips Telfa OpSite dressings applied. Sponge and instrument and needle counts were reported to the surgeon to be correct. Specimen umbilical hernia sac and contents. Drains none. Blood loss minimal. The patient was taken the recovery area in satisfied condition without apparent complication Malik Grissom M.D., F.A.C.S. Surgeon: Malik Grissom Type of Anesthesia: General and Local Anesthesiologist: Nilda Rothman 04/22/23 1401 Cosigner Signature (if applicable): CC: Dr. Kelsie Munoz MD; Dr. Malik Grissom MD Signed Normal [facility] Surgery Specimen Level IIon 04-22-2023 Surgery Specimen Level II Patient Age/Sex Location Account Attending Physician ABBIDENNISE 62/[place] [facility] [id number]. Malik Grissom MD Specimen: [id number] Received: 04/23/23 Status: MAGDALENE Donaldson Num: [id number] Spec Type: Hernia Subm Dr: Dr. Malik Grissom MD HEADER OPERATION: Laparoscopic inguinal hernia repair with mesh, direct umbilical PRE-OP DIAGNOSIS: Right inguinal hernia TISSUE SUBMITTED: Umbilical hernia sac and contents MICROSCOPIC DIAGNOSIS Umbilical hernia sac and contents: A piece of adipose tissue, clinically hernia sac and contents. SJ:mo 04/24/2023 MICROSCOPIC DESCRIPTION Slides are reviewed. GROSS DESCRIPTION Received in fixative is one container labeled with the patient's name and designated umbilical hernia sac and contents. The specimen consists of a piece of yellow adipose tissue measuring 2.5 x 1.5 x 1.0 cm. Sections reveal yellow adipose cut surfaces without area of hemorrhage, necrosis or cystic degeneration. The entire specimen is submitted in one cassette. / AXEL:mo 04/24/2023 TC:5 CPT: 79548 Patient Age/Sex Location Account Attending Physician DENNISE GO 62/[place] [id number] Dr. Malik Grissom MD Signed (signature on file) Dr. Joseph Vincent MD 04/24/23 1239 Normal [facility] Comment on above: Performed By: #### P SUII #### [facility] [address] [facility] [facility]. [place], [place], [address] 12 Lead EKGon 04-18-2023 12 Lead EKG [facility] Cardiovascular Services [address] [place] [address] 12 Lead EKG 04/18/23 0859 MR#: [id number] Acct: [id number] Name: DENNISE GO Rep #: [id number] : 1960 62 From: Sekou Woods MD Attending Dr: Dr. Malik Grissom MD Status: LA E [facility] [place]: Malik Grissom MD Date: 04/18/23 [place] [facility] Sex: M C Admitted: Test Reason : PRE-OP Blood Pressure : / mmHG Vent. Rate : 054 BPM Atrial Rate : 054 BPM P-R Int : 200 ms QRS Dur : 088 ms QT Int : 398 ms P-R-T Axes : 047 052 038 degrees QTc Int : 377 ms Sinus bradycardia Otherwise normal ECG Confirmed by ANGEL LAU, SEKOU ([id number]), story editor EUGENIO HALL ([id number]) on 04/19/2023 6:49:26 AM Referred By: Malik Grissom Confirmed By:SEKOU WOODS MD 04/19/23 0649 Date Sekou Woods MD CC: Dr. Kelsie Munoz MD; Dr. Malik Grissom MD Signed Normal [facility] Basic Metabolic Profile (BMP )on 04-18-2023 BUN/CRE 12.3 RATIO Normal 10-20 [facility] Comment on above: Performed By: #### L 500.2500, L100.0500 #### [facility] [address] [place], [address] CA,Total 9.2 mg/dL Normal 8.5-10.1 [facility] Comment on above: Performed By: #### L 500.2500, L100.0500 #### [facility] [address] [place], [address] Chloride [Moles/Vol] 108 mmol/L High 98-107 [facility] Comment on above: Performed By: #### L 500.2500, L100.0500 #### [facility] [address] [place], [address] CO2 [Moles/Vol] 29.0 mmol/L Normal 21.0-32.0 [facility] Comment on above: Performed By: #### L 500.2500, L100.0500 #### [facility] [address] [place], [address] Creatinine [Mass/Vol] 1.22 mg/dL Normal 0.70-1.30 [facility] Comment on above: Result Comment: The validity of the calculated GFR GFRAA in patients over 70 years has not been determined. Clinical correlation is essential. Performed By: #### L 500.2500, L100.0500 #### [facility] [address] [place], [address] EST GFR - AA 77 mL/min Normal >60 [facility] Comment on above: Result Comment: Afri can [place] Citizen GFR Calc Performed By: #### L 500.2500, L100.0500 #### [facility] [address] [place], [address] GAP 1 Low 5-15 [facility] Comment on above: Performed By: #### L 500.2500, L100.0500 #### [facility] [address] [place], [address] GFR/1.73 sq M.predicted among non-blacks MDRD (S/P/Bld) [Vol rate/Area] 63 mL/min/{1.73_m2} Normal >60 [facility] Comment on above: Result Comment: Non- GFR Calc Performed By: #### L 500.2500, L100.0500 #### [facility] [address] [place], [address] Glucose [Mass/Vol] 87 mg/dL Normal 74-106 [facility] Comment on above: Performed By: #### L 500.2500, L100.0500 #### [facility] [address] [place], [address] Potassium [Moles/Vol] 4.5 mmol/L Normal 3.5-5.1 [facility] Comment on above: Performed By: #### L 500.2500, L100.0500 #### [facility] [address] [place], [address] Sodium [Moles/Vol] 138 mmol/L Normal 136-145 [facility] Comment on above: Performed By: #### L 500.2500, L100.0500 #### [facility] [address] [place], [address] Urea nitrogen [Mass/Vol] 15 mg/dL Normal 7-18 [facility] Comment on above: Performed By: #### L 500.2500, L100.0500 #### [facility] [address] [place], [address] CBC-Complete Blood Cnt No Di ffon 04-18-2023 Erythrocyte distribution width (RBC) [Ratio] 13.1 % Normal 11.6-14.6 [facility] Comment on above: Performed By: #### L 500.2500, L100.0500 #### [facility] [address] [place], [address] Hematocrit (Bld) [Volume fraction] 44.1 % Normal 40-54 [facility] Comment on above: Performed By: #### L 500.2500, L100.0500 #### [facility] [address] [place], [address] Hemoglobin (Bld) [Mass/Vol] 14.4 g/dL Normal 13.0-16.5 [facility] Comment on above: Performed By: #### L 500.2500, L100.0500 #### [facility] [address] [place], [address] MCH (RBC) [Entitic mass] 31.4 pg Normal 27.0-32.0 [facility] Comment on above: Performed By: #### L 500.2500, L100.0500 #### [facility] [address] [place], [address] MCHC (RBC) [Mass/Vol] 32.7 g/dL Normal 32-36 [facility] Comment on above: Performed By: #### L 500.2500, L100.0500 #### [facility] [address] [place], [address] MCV (RBC) [Entitic vol] 96.3 fL High 80-94 [facility] Comment on above: Performed By: #### L 500.2500, L100.0500 #### [facility] [address] [place], [address] Platelet mean volume (Bld) [Entitic vol] 10.8 fL Normal 6.2-12.0 [facility] Comment on above: Performed By: #### L 500.2500, L100.0500 #### [facility] [address] [place], [address] Platelets (Bld) [#/Vol] 251 10*3/uL Normal 150-450 [facility] Comment on above: Performed By: #### L 500.2500, L100.0500 #### [facility] [address] [place], [address] RBC (Bld) [#/Vol] 4.58 10*6/uL Low 4.6-6.2 [facility] Comment on above: Performed By: #### L 500.2500, L100.0500 #### [facility] [address] [place], [address] RDW SD 45.8 fl High 35.1-43.9 [facility] Comment on above: Performed By: #### L 500.2500, L100.0500 #### [facility] [address] [place], [address] WBC (Bld) [#/Vol] 5.9 10*3/uL Normal 4.4-11.0 [facility] Comment on above: Performed By: #### L 500.2500, L100.0500 #### [facility] [address] [place], [address] Stress Reporton 04-08-2023 Stress Report [facility] Cardi[facility] Services [address] [place] [address] MR#: [id number] Acct: [id number] Name: DENNISE GO Rep #: [id number] : 1960 62 From: Adrianne Guillen MD Primary Care: Dr. Kelsie Munoz MD Status: REG CLI Referring Dr: Rosie Newsome NP RESOURCE ENGINEER-C Sex: M C Stress Test Report Date: 04/08/2023 Procedure: Exercise tolerance test/imaging study Indications: Preoperative evaluation Consent: Per the patient Procedure: The patient exercised on a Tirso protocol for 8 minutes achieving a peak heart rate of 148 bpm (94% predicted maximal heart rate) with a peak blood pressure 164/68 mmHg and a peak MET capacity of 10.1 METs. The baseline ECG demonstrated normal sinus rhythm. The peak exercise ECG demonstrated no significant ischemic changes. EKG during recovery revealed no significant ischemic changes [There were no cardiac dysrhythmias pretest, during exercise, or recovery]. The functional capacity was considered excellent for age. There was [no complaint of chest discomfort during exercise or recovery]. The examination was discontinued secondary to hip pain. Impression: 1. Technically adequate (percent predicted maximal heart rate greater than 85%) exercise tolerance test 2. Stress test is negative for exercise-induced EKG changes of ischemia 3. The test test is negative for exercise-induced chest pain 4. Functional capacity is excellent for age 5. Nuclear images pending Myocardial perfusion imaging study: Technique: The patient was injected with 11.4 mCi of technetium 99m Cardiolite and subsequently rest SPECT Cardiolite nuclear imaging was obtained in the horizontal long, vertical long, and short axis views. The patient exercised on a Tirso protocol. Please see above for details. The patient was injected with 34.7 mCi of technetium 99m Cardiolite and subsequently stress SPECT Cardiolite nuclear imaging was obtained in the horizontal long, vertical long, and short axis views. A gated Cardiolite study at peak stress was obtained. Interpretation: Rest and stress SPECT Cardiolite nuclear imaging status post realignment, normalization, and attenuation correction, demonstrates no evidence of significant ischemia or infarction. The gated Cardiolite study demonstrates no significant regional wall motion abnormalities. The reported LVEF is 58%. Impression: 1. There is no evidence of significant ischemia or infarction. 2. The gated Cardiolite study reports an LVEF of 58%. This note was generated with [employer] dictation software. It may contain incorrect words, spelling, and punctuation that were not noted in checking the note before signing. 04/08/23 1414 Date Adrianne Guillen MD CC: ANIKET Newsome; Dr. Kelsie Munoz MD Date Dictated: 04/08/231409 Date Transcribed: 04/08/231409 Chief [place] Division: SABINE Signed Normal [facility] Basophil percentageOrdered B y: Jeff Kent on 09-24-2022 Bilirubin [Mass/Vol] 0.70 mg/dL 0.20-1.00 [facility] Comment on above: For patients on eltr ombopag therapy, use of Dimension [place] TBIL is not recommended. Cholesterol [Mass/Vol] 216 mg/dL <200 [facility] Comment on above: <200 mg/dL Desirable 200-240 mg/dL Borderline >240 mg/dL High Risk Protein [Mass/Vol] 7.7 g/dL 6.4-8.2 [facility] Triglyceride [Mass/Vol] 79 mg/dL <199 [facility] Comment on above: The drugs N-Acetylcy steine and Metamizole may falsely depress this assay.Serum Triglycerides Reference Interval Normal <150 mg/dL Borderline high 150 - 199 mg/dL High 200 - 499 mg/dL Very High > or = 500 mg/dL Direct bilirubinOrdered By: Jeff Kent on 09-24-2022 Bilirubin.direct [Mass/Vol] 0.16 mg/dL 0.00-0.30 [facility] Laboratory - Chemistry and C hemistry - challengeOrdered By: Jeff Kent on 09-24-2022 ALP [Catalytic activity/Vol] 59 U/L 45-117 [facility] ALT [Catalytic activity/Vol] 26 U/L 16-61 [facility] Globulin (S) [Mass/Vol] 3.9 g/dL 2.2-4.2 [facility] Serum or plasma albumin anupam urement (mass/volume)Ordered By: Jeff Kent on 09-24-2022 Albumin [Mass/Vol] 3.8 g/dL 3.2-5.0 [facility] Serum or plasma cholesterol in HDL measurement (mass/volume)Ordered By: Jeff Kent on 09-24-2022 Cholesterol in HDL [Mass/Vol] 48 mg/dL >40 [facility] Comment on above: The drugs N-Acetylcy steine and Metamizole may falsely depress this assay. Reference Range HDL <40 mg/dL Low HDL Cholesterol HDL >or= 60 mg/dL High HDL Cholesterol Serum or plasma cholesterol in VLDL measurement (mass/volume)Ordered By: Jeff Kent on 09-24-2022 Cholesterol in VLDL [Mass/Vol] 16 mg/dL 5-40 [facility] Serum or plasma low density lipoprotein (LDL) cholesterol measurement (mass/volume)Ordered By: Jeff Kent on 09-24-2022 Cholesterol in LDL [Mass/Vol] 152 mg/dL 0-130 [facility] Thin prep Papanicolaou smear with manual screeningOrdered By: Jeff Kent on 09-24-2022 Thin prep Papanicolaou smear with manual screening 18 U/L 15-37 [facility] Basophil percentageon 2021 Bilirubin [Mass/Vol] 0.60 mg/dL 0.20-1.00 [facility] Work Phone: Comment on above: For patients on eltr ombopag therapy, use of Dimension [place] TBIL is not recommended. Cholesterol [Mass/Vol] 135 mg/dL <200 [facility] Work Phone: Comment on above: <200 mg/dL Desirable 200-240 mg/dL Borderline >240 mg/dL High Risk Protein [Mass/Vol] 6.9 g/dL 6.4-8.2 [facility] Work Phone: Triglyceride [Mass/Vol] 50 mg/dL <199 [facility] Work Phone: Comment on above: The drugs N-Acetylcy steine and Metamizole may falsely depress this assay.Serum Triglycerides Reference Interval Normal <150 mg/dL Borderline high 150 - 199 mg/dL High 200 - 499 mg/dL Very High > or = 500 mg/dL Direct bilirubinon Bilirubin.direct [Mass/Vol] 0.13 mg/dL 0.00-0.30 [facility] Work Phone: Laboratory - Chemistry and C hemistry - challengeon 09-21-2021 ALP [Catalytic activity/Vol] 45 U/L 45-117 [facility] Work Phone: ALT [Catalytic activity/Vol] 53 U/L 16-61 [facility] Work Phone: Globulin (S) [Mass/Vol] 3.3 g/dL 2.2-4.2 [facility] Work Phone: Serum or plasma albumin anupam urement (mass/volume)on 09-21-2021 Albumin [Mass/Vol] 3.6 g/dL 3.2-5.0 [facility] Work Phone: Serum or plasma cholesterol in HDL measurement (mass/volume)on 09-21-2021 Cholesterol in HDL [Mass/Vol] 48 mg/dL >40 [facility] Work Phone: Comment on above: The drugs N-Acetylcy steine and Metamizole may falsely depress this assay. Reference Range HDL <40 mg/dL Low HDL Cholesterol HDL >or= 60 mg/dL High HDL Cholesterol Serum or plasma cholesterol in VLDL measurement (mass/volume)on 09-21-2021 Cholesterol in VLDL [Mass/Vol] 10 mg/dL 5-40 [facility] Work Phone: Serum or plasma low density lipoprotein (LDL) cholesterol measurement (mass/volume)on 09-21-2021 Cholesterol in LDL [Mass/Vol] 77 mg/dL 0-130 [facility] Work Phone: Thin prep Papanicolaou smear with manual screeningon 09-21-2021 Thin prep Papanicolaou smear with manual screening 36 U/L 15-37 [facility] Work Phone: Vital Signs Date Time Vital Sign Value Performing Clinician Faci lity 04-01-2023 14:06-0500 Body height 177.[address] Kelsie Munoz Work Phone: [facility] 04-01-2023 14:06-0500 Body mass index (BMI) [Ratio] 25.8 kg/m2 Dr. Kelsie Munoz Work Phone: [facility] 04-01-2023 14:06-0500 Body temperature 97.6 [degF] Dr. Kelsie Munoz Work Phone: [facility] 04-01-2023 14:06-0500 Body weight 81.[address] Kelsie Munoz Work Phone: [facility] 04-01-2023 14:06-0500 Diastolic blood pressure 77 mm[Hg] Dr. Kelsie Munoz Work Phone: [facility] 04-01-2023 14:06-0500 Heart rate 65 /min Dr. Kelsie Munoz Work Phone: [facility] 04-01-2023 14:06-0500 Respiratory rate 17 /min Dr. Kelsie Munoz Work Phone: [facility] 04-01-2023 14:06-0500 SaO2% (BldA) [Mass fraction] 96 % Dr. Kelsie Munoz Work Phone: [facility] 04-01-2023 14:06-0500 Systolic blood pressure 140 mm[Hg] Dr. Kelsie Munoz Work Phone: [facility] 09-20-2022 08:55-0400 Body height 177.[address] Kelsie Munoz Work Phone: [facility] 09-20-2022 08:55-0400 Body mass index (BMI) [Ratio] 25.7 kg/m2 Dr. Kelsie Munoz Work Phone: [facility] 09-20-2022 08:55-0400 Body weight 81.[address] Kelsie Munoz Work Phone: [facility] 09-20-2022 08:55-0400 Diastolic blood pressure 81 mm[Hg] Dr. Kelsie Munoz Work Phone: [facility] 09-20-2022 08:55-0400 Heart rate 55 /min Dr. Kelsie Munoz Work Phone: [facility] 09-20-2022 08:55-0400 Respiratory rate 18 /min Dr. Kelsie Munoz Work Phone: [facility] 09-20-2022 08:55-0400 SaO2% (BldA) [Mass fraction] 95 % Dr. Kelsie Munoz Work Phone: [facility] 09-20-2022 08:55-0400 Systolic blood pressure 133 mm[Hg] Dr. Kelsie Munoz Work Phone: [facility] 08-02-2021 13:58-0400 Body height 177.[address] Kelsie Munoz Work Phone: [facility] Work Phone: 08-02-2021 13:58-0400 Body weight 83.[address] Kelsie Munoz Work Phone: [facility] Work Phone: 08-02-2021 13:58-0400 Diastolic blood pressure 74 mm[Hg] Dr. Kelsie Munoz Work Phone: [facility] Work Phone: 08-02-2021 13:58-0400 Heart rate 60 /min Dr. Kelsie Munoz Work Phone: [facility] Work Phone: 08-02-2021 13:58-0400 Respiratory rate 16 /min Dr. Kelsie Munoz Work Phone: [facility] Work Phone: 08-02-2021 13:58-0400 Systolic blood pressure 130 mm[Hg] Dr. Kelsie Munoz Work Phone: [facility] Work Phone: 09-21-2020 14: Body mass index (BMI) [Ratio] 26.5 kg/m2 Dr. Kelsie Munoz Work Phone: [facility] Work Phone: Encounters Encounter Date Encounter Type Care Provider Facility Start: 03-11-2024 End: 03-11-2024 ambulatory Kelsie S Jolliff Facility:[facility] Start: 10-10-2023 End: 10-10-2023 ambulatory Kelsie S Jolliff Facility:[facility] Start: 09-18-2023 End: 09-18-2023 ambulatory Kelsie S Jolliff Facility:[facility] Start: 05-02-2023 End: 05-02-2023 ambulatory Kelsie S Jolliff Facility:[facility] Start: 04-30-2023 Encounter for other preprocedural examination Malik D Cebul [facility] Start: 04-22-2023 ambulatory Malik D Cebul Facility :[facility] Start: 04-22-2023 End: 04-22-2023 ambulatory Malik D Cebul Facility:[facility] Start: 04-18-2023 End: 04-18-2023 ambulatory Malik D Cebul Facility:[facility] Start: 04-15-2023 Encounter for other preprocedural examination Rosie Newsome RESOURCE ENGINEER [facility] Start: 04-08-2023 ambulatory Rosie Newsome RESOURCE ENGINEER Facili ty:[facility] Start: 04-08-2023 Non-patient / Non-visit Dr. Harman Munoz Work Phone: [facility] Work Phone: Start: 04-08-2023 End: 04-08-[address] Kelsie Munoz Work Phone: [facility] Work Phone: Start: 04-08-2023 End: 04-08-[address] Kelsie Munoz Work Phone: [facility] Work Phone: Start: 04-08-2023 End: 04-08-2023 ambulatory Rosie Newsome NP Facility:[facility] Start: 04-03-[address] Kelsie sommers Work Phone: [facility] Start: 04-01-2023 End: 04-01-[address] Kelsie Munoz Work Phone: [facility] Work Phone: Start: 09-27-[address] Kels[facility] burton [facility] Work [facility]: Start: 09-24-2022 End: 09-24-[address] Kelsie Munoz Work Phone: [facility] Work Phone: Start: 09-24-2022 End: 09-24-[address] Kelsie Munoz Work Phone: [facility] Work Phone: Start: 09-21-2022 End: 09-21-[address] Kelsie Munoz Work Phone: [facility] Work Phone: Start: 09-21-2022 End: 09-21-[address] Kelsie Munoz Work Phone: [facility] Work Phone: Start: 09-20-2022 End: 09-20-[address] Kelsie Munoz Work Phone: [facility] Work Phone: Start: 09-21-2021 End: 09-21-[address] Kelsie Munoz Work Phone: [facility] Start: 08-02-2021 End: 08-02-[address] Kelsie Munoz Work Phone: [facility] Procedures Date Procedure Procedure Detail Performing Clinician Start: 04-08-2023 Radionuclide imaging of perfusion of myocardium under exercise stress Dr. Kelsie Munoz Work Phone: Start: 09-21-2022 Complete x-ray serie s of lumbar spine with bending views Dr. Kelsie Munoz Work Phone: Immunizations Immunization Date Immunization Notes Care Provider Fa cility 04-19-2018 tetanus toxoid, redu young diphtheria toxoid, and acellular pertussis vaccine, adsorbed Dr. Kelsie Munoz Work Phone: [facility] Payers Date Payer Category Payer Medicare [id number] 2023 Self-pay [id number] 2022 Unknown [id number] 2000 Unknown [id number] Unknown [id number] 2.16.8 [id number] Unknown [id number] 2.16.8 [id number] Unknown [id number] 2.16.8 [id number] Unknown [id number] 2.16.8 [id number] Unknown [id number] 2.16.8 [id number] Unknown [id number] 2.16.8 [id number] Unknown [id number] 2.16.8 [id number] Unknown [id number] 2.16.8 [id number] Unknown [id number] 2.16.8 [id number] Unknown [id number] 2.16.8 [id number] Social History Date Type Detail Facility Start: 08-02-2021 End: 04-01-2023 Tobacco smoking status NHIS Unknown if ever smoked [facility] Start: 08-30-2018 Occasional [facility] Start: 08-30-2018 None [facility] Start: 08-30-2018 With Family [facility] Start: 08-30-2018 Cigarettes [facility] Start: 1960 Sex Assigned At Male [facility] Clinical Note 04-22-2023 Note Date & Type Note Facility 04-22-2023 Note [facility] Medical Records Department [address] [place] [address] History Physical Exam 04/22/23 1148 MR#: [id number] Acct: [id number] Name: DENNISE GO Rep #: [id number] : 1960 62 From: Malik Grissom MD PCP: Dr. Kelsie Munoz MD Status:[facility] Location: [place] [address] History and Physical Date of Admission: 04/22/23 Visit Reasons: Hernia Chief Complaint: right inguinal hernia Staff Occupational Therapist Required: No Is patient in pain?: No Allergies No Known Allergies Allergy (Verified 04/01/23 14:07) Medications aspirin 81 mg tablet,delayed release 81 mg PO DAILY@0800 #90 tabs 07/16/19 [Rx Confirmed 04/01/23] clopidogrel 75 mg tablet 75 mg PO DAILY #90 tabs 07/17/22 [Rx Confirmed 04/01/23] metoprolol tartrate 25 mg tablet 12.5 mg (1/2 x 25 mg) PO BID #90 tabs 07/17/22 [Rx Confirmed 04/01/23] [facility] Medical History Atherosclerotic heart disease of ramona coronary artery without angina pectoris Denies previous medical history History of non-ST elevation myocardial infarction (NSTEMI) HLD (hyperlipidemia) NSTEMI (non-ST elevated myocardial infarction) Old myocardial infarction Presence of stent in coronary artery ( 08/31/18) Surgical History (Updated 04/01/23 @ 14:12 by Saba Villa LPN) History of inguinal hernia repair Presence of coronary angioplasty implant and graft ( 08/31/18) Family History Mother Carotid artery disease Hypertension Thyroid disorder CAD (coronary artery disease)Grandfather Heart diseaseGrandfather Heart disease Social History (Updated 04/01/23 @ 14:06 by Saba Villa LPN) Smoking Status: Never smoker alcohol intake: never substance use type: does not use HPI HPI HPI: 62-year-old gentleman is referred by Dr. Kelsie Munoz for surgical consultation regarding potential hernia and written compromise surgical consult and recommendations will be returned to her. The pat ient's been having ongoing symptoms for a year. There is felt to be a reducible right inguinal hernia. It is of note that he does have atherosclerotic cardiovascular disease and medications include clopidogrel and atorvastatin and low-dose aspirin in addition to his metoprolol. He has had carotid artery stenting and has had a previous left inguinal hernia repair in 1993. The patient instructs me that he had a right inguinal hernia detected in 2016 with a [facility] license medical review. Recently though its become much more symptomatic. He states that he remotely had a left inguinal hernia repair with no mesh. He then developed a recurrence and had to have a redo repair done with mesh. He thinks that was done approximately 10 years ago. He is quite active. He lifts weights and runs on a treadmill and plays pickle ball. With no antecedent symptoms in 2019 he had a myocardial infarction. He had urgent cardiac catheterization locally and 2 coronary stents placed. He does have hypercholesterolemia. He is continue to follow- up with the [facility]. He has now had his clopidogrel decrease to every other day. Years ago he would chew a small amount of tobacco. Currently he is tobacco free. He denies cigarette use. Family history notable for cardiac disease in his mother. His primary reason for presentation today is a progressively symptomatic right inguinal hernia. [place] Musculoskeletal: Yes back problems Cardio Cardiovascular: Yes heart attack and heart stent [place] Hematologic: Yes blood thinners Exam Const General: cooperative, comfortable and no acute distress [facility] Head: normal to inspection Eyes General: appearance normal, both eyes and all related structures Neck Neck: normal visual inspection Chest Chest palpation inspection: normal inspection of the chest Resp Effort Inspection: normal respiratory effort Auscultation: clear to auscultation bilaterally Cardio Rate: regular rate Rhythm: regular rhythm GI Palpation: soft and no hepatosplenomegaly Other: Testicles are descended. Well-healed transverse incision left groin. Appears to be solid intact nontender. Left testicle mildly atrophic. Right groin obvious inguinal hernia detected. Testicle slightly atrophic. Hernia appears to be mostly reducible when supine. Skin General: no rashes or lesions noted Neuro General: patient alert, patient awake and patient oriented x3 Extrem General: no calf tenderness Psych Appearance: grossly normal Assessment and Plan Assessment and Plan (1) Inguinal hernia of right side without obstruction or gangrene: Status: Acute Plan: 62-year-old gentleman with a progressively enlarging symptomatic right inguinal hernia. Currently it is mostly reducible. He has had a previous myocardial infarction 2019 with 2 c (more content not included)... [facility] Evaluation note 08-25-2018 Note Date & Type Note Facility 08-25-2018 Evaluation note Diagnosis Onset Date Atherosclerotic heart diseas e of ramona coronary artery without angina pectoris chronic HLD (hyperlipidemia) chronic Presence of stent in coronar y artery August, [facility] Work Phone: Evaluation note 08-25-2018 Note Date & Type Note Facility 08-25-2018 Evaluation note Diagnosis Onset Date HLD (hyperlipidemia) chronic Presence of stent in coronar y artery August, [facility] Work Phone: Evaluation note Note Date & Type Note Facility Evaluation note Diagnosis Onset Date Inguinal hernia of right anita e without obstruction or gangrene acute [facility] Work Phone: Chief Complaint and Reason for Visit Chief Complaint 11 m fu Reason for Visit Atherosclerotic hear t disease of ramona coronary artery without angina pectoris HLD (hyperlipidemia) Presence of stent in coronary artery Chief Complaint 1 y fu PREV PFM PT EORDER- left radicular pain EORDER Reason for Visit HLD (hyperlipidemia) Presence of stent in coronary artery Chief Complaint 1 y fu PREV PFM PT EORDER- left radicular pain EORDER LUMBAR STRAIN RX HERE Reason for Visit HLD (hyperlipidemia) Presence of stent in coronary artery Chief Complaint Hernia Reason for Visit Inguinal hernia of r ight side without obstruction or gangrene Chief Complaint Hernia HX CAD W/STENT, PREOP CLEAERANCE HX CAD W/STENT, PREOP [facility]AERANCE Amb Documentation Reason for Visit Inguinal hernia of r ight side without obstruction or gangrene Family History No Family History Records Found Relationship Condition Age at Onset Recorded Date/T berta mother Carotid artery disease Unknown Hypertension Unknown Disorder of thyroid Unknown Coronary artery disease Unknown grandfather Cardiac disease Unknown Advance Directives No Advanced Directives Records Found Advance Directive Response Recorded Date/ Time Advance Directives Yes November 28, 2015 8:18am Living Will No September 11, 2018 9:03am Power of Christian Counselor No September 11 9 9:03am Advance Directive Response Recorded Date/ Time Advance Directives Yes November 28, 2015 7:18am Living Will No September 11, 2018 8:03am Power of Christian Counselor No September 11 9 8:03am Summary Purpose Additional Source Comments Goals (unrecognized section and content) Goals may be documented in a n alternate sectionGoals may be documented in an alternate sectionGoals may be documented in an alternate sectionGoals may be documented in an alternate sectionGoals may be documented in an alternate section Care Teams (unrecognized sec tion and content) Team Status: Active Member Role Status Dates Dr. Kelsie Munoz MD Family Provider Active Dr. Kelsie Munoz MD Primary Care Provider Active Team Status: Inactive Member Role Status Dates Dr. Kelsie Munoz MD Primary Care Provider, Referrin g Provider Active Jeff Kent RESOURCE ENGINEER, RESOURCE ENGINEER-C Attending Provider Active Team Status: Active Member Role Status Dates Dr. Kelsie Munoz MD Primary Care Provider Active Jeff Kent RESOURCE ENGINEER, RESOURCE ENGINEER-C Attending Provider, Referring Pro vider Active Team Status: Inactive Member Role Status Dates Dr. Kelsie Munoz MD Primary Care Prov ider, Attending Provider, Referring Provider Active Team Status: Inactive Member Role Status Dates Dr. Kelsie Munoz MD Primary Care Provider Active Jeff Kent RESOURCE ENGINEER, RESOURCE ENGINEER-C Attending Provider, Referring Pro vider Active Team Status: Active Member Role Status Dates Dr. Kelsie Munoz MD Primary Care Prov ider, Attending Provider, Referring Provider Active Team Status: Inactive Member Role Status Dates Dr. Kelsie Munoz MD Primary Care Provider, Referrin g Provider Active Dr. Malik Grissom MD Attending Provider Active Team Status: Active Member Role Status Dates Dr. Kelsie Munoz MD Primary Care Provider Active Rosie Newsome RESOURCE ENGINEER, RESOURCE ENGINEER-C Referring Provider, Other Provi luci Active Dr. Adrianne Guillen MD Attending Provider Activ e Team Status: Active Member Role Status Dates Dr. Kelsie Munoz MD Primary Care Provider Active Rosie Newsome RESOURCE ENGINEER, RESOURCE ENGINEER-C Attending Provider Active Team Status: Inactive Member Role Status Dates Dr. Kelsie Munoz MD Primary Care Provider Active Rosie Newsome RESOURCE ENGINEER, RESOURCE ENGINEER-C Attending Provider, Referring P rovider Active (unrecognized sect ion and content) No Status Records Found INFORMATION SOURCE (unrecogn ized section and content) DATE CREATED AUTHOR 04/05/2024 [facility] FOR RECORDS PERTAINING TO PATIENTS WHO ARE OR HAVE BEEN ENROLLED IN A CHEMICAL DEPENDENCY/SUBSTANCEABUSE PROGRAM, SOME INFORMATION MAY BE OMITTED. This clinical summary was aggregated from multiple sources. Caution should be exercised in using it in the provision of clinical care. This summary normalizes information from multiple sources, and as a consequence, information in this document may materially change the coding, format and clinical context of patient data. In addition, data may be omitted in some cases. CLINICAL DECISIONS SHOULD BE BASED ON THE PRIMARY CLINICAL RECORDS. [employer] provides no warranty or guarantee of the accuracy or completeness of information in this document.
[2024-08-17 09:24] LABS: AST(SGOT) 31 U/L (<=37); Alanine Aminotransfer ALT/SGPT 28 U/L (<=46); Albumin, Serum 4.3 g/dL (3.4-4.8); Alkaline Phosphatase 61 U/L (40-129); Bilirubin, Direct 0.33 mg/dL (0.00-0.30); Globulin 2.8 g/dL (2.2-4.2); Protein, Total 7.1 g/dL (5.9-8.4); Total Bilirubin 0.85 mg/dL (0.00-1.30)
[2024-08-17 10:48] LABS: Cholesterol 166 mg/dL (<=200); High Density Lipoprotein 48 mg/dL; Low Density Lipoprotein Calc. 103 mg/dL; Triglycerides 75 mg/dL; Very Low Density Lipoprotein 15 mg/dL (5-40); cholesterol:hdl ratio screen 3.46
== END | disposition home or self-care (01) ==
LOC: LAB 06:54
PROVIDERS: PCP Family Medicine; Referring Provider Nurse Practitioner Family; Visit Provider Nurse Practitioner Family
DX: E78.00 Pure hypercholesterolemia, unspecified (principal)
CPT/HCPCS: 36415; 80061; 80076